=== PATIENT | male | born 1985 | race Two or more races ===

== ENCOUNTER 2017-04-15 11:35 | Inpatient (IN) | payer MEDICAID ==
[~2017-04-15] VITALS: Ht 167.6 cm; Wt 58.7 kg
[2017-04-15] MEDS ORDERED: ONDANSETRON ODT 4 MG TAB PO ONE ×2 (12:12→12:30)
[2017-04-15 13:40] LABS: Basophils # (auto) 0 uL; Basophils % (auto) 0.1 % (0.0-2.0); Eosinophils # (auto) 0 uL; Hematocrit 50.5 % (41.0-53.0); Hemoglobin 17.1 g/dL (13.5-17.5); Lymphocytes # (auto) 0.4 uL; Lymphocytes % (auto) 2.4 % (10.0-50.0); Mean Corpuscular Hemoglobin 31.4 pg (28.0-32.0); Mean Corpuscular Hgb Conc. 33.8 g/dL (32.0-36.0); Mean Corpuscular Volume 92.9 fL (80.0-100.0); Monocytes # (auto) 1.6 uL; Monocytes % (auto) 9.1 % (0.0-12.0); Neutrophils # (auto) 15.5 uL; Neutrophils % (auto) 88.4 % (37.0-80.0); Nucleated Red Blood Cells % 0.1 %; Platelet Count (auto) 228 10^3/uL (140-450); Red Blood Cells 5.44 10^6/uL (4.5-5.90); Red Cell Distribution Width 13.2 % (11.8-14.3); White Blood Cell 17.5 10^3/uL (4.4-10.8)
[2017-04-15 14:02] LABS: Albumin 5.6 g/dL (3.4-5.0); BUN/Creatinine Ratio 13.1; Bilirubin, Total 1.8 mg/dL (0.2-1.0); Calcium 9.8 mg/dL (8.5-10.1); Potassium 3.4 mmol/L (3.5-5.1); Total Protein 10.7 g/dL (6.4-8.2)
[2017-04-15] MEDS ORDERED: SODIUM CHLORIDE 0.9% 1,000 ML IVB ONE (17:28)
[2017-04-15] MEDS ORDERED: ONDANSETRON HCL 4 MG/2 ML VIAL IV ONE (17:30)
[2017-04-15] MEDS ORDERED: cefTRIAXone 1GM/10ml IVPUSH 10 ML IV ONE (17:30)
[2017-04-15] MEDS ORDERED: SODIUM CHLORIDE 0.9% 1,000 ML IV ONE ×2 (17:30)
[2017-04-15] MEDS ORDERED: PANTOPRAZOLE 40 MG/10 ML VIAL IV ONE (17:30)
[2017-04-15 18:24] LABS: Lactic Acid w/Reflex 2.9 mmol/L (0.4-2.0)
[2017-04-15 19:06] LABS: INR 1.1 (0.9-1.15); Partial Thromboplastin Time 27.3 sec (22.64-33.71)
[2017-04-15 19:52] LABS: Urine Bacteria None Seen /hpf (None Seen)
[2017-04-15 20:43] LABS: Urine Specific Gravity 1.015 (1.001-1.035)
[2017-04-15 20:46] LABS: Urine Hyaline Cast FEW /lpf (0 - 2); Urine Mucus FEW (None Seen); Urine WBC 3 /hpf (0 - 3)
[2017-04-15 20:47] LABS: Urine Blood Trace /uL (Negative)
[2017-04-15] MEDS ORDERED: metroNIDAZOLE 500MG/100ML 100 ML IV ONE (21:15)
[2017-04-15] MEDS ORDERED: ONDANSETRON HCL 4 MG/2 ML VIAL IV PRN (21:15)
[2017-04-15] MEDS: SODIUM CHLORIDE 0.9% 1,000 ML IV SCH (21:30)
[2017-04-15] MEDS ORDERED: POTASSIUM CHL 10% (20 MEQ/15ML) 15ml ORAL SOLN PO ONE (22:15)
[2017-04-15 23:30] VITALS: BP 139/72
[2017-04-16] MEDS ORDERED: INFLUENZA QUAD 2017-2018 0.5 ML SYRG IM ONE (03:30)
[2017-04-16] MEDS ORDERED: PNEUMOCOCCAL VACC POLYS 25 MCG/0.5 ML VIAL IM ONE (03:30)
[2017-04-16 05:35] VITALS: BP 114/62
[2017-04-16 06:02] LABS: Basophils # (auto) 0 uL; Eosinophils # (auto) 0 uL; Hematocrit 38.2 % (41.0-53.0); Hemoglobin 12.9 g/dL (13.5-17.5); Lymphocytes # (auto) 0.8 uL; Mean Corpuscular Hemoglobin 31.7 pg (28.0-32.0); Mean Corpuscular Hgb Conc. 33.9 g/dL (32.0-36.0); Mean Corpuscular Volume 93.5 fL (80.0-100.0); Monocytes # (auto) 1.6 uL; Monocytes % (auto) 11.7 % (0.0-12.0); Neutrophils # (auto) 11.1 uL; Neutrophils % (auto) 82.3 % (37.0-80.0); Nucleated Red Blood Cells % 0.1 %; Platelet Count (auto) 133 10^3/uL (140-450); Red Blood Cells 4.08 10^6/uL (4.5-5.90); White Blood Cell 13.5 10^3/uL (4.4-10.8)
[2017-04-16 06:24] LABS: Albumin 3.6 g/dL (3.4-5.0); Calcium 7.8 mg/dL (8.5-10.1); Potassium 3.1 mmol/L (3.5-5.1)
[2017-04-16 06:26] LABS: BUN/Creatinine Ratio 20.6
[2017-04-16 06:28] LABS: Bilirubin, Total 1.1 mg/dL (0.2-1.0)
[2017-04-16] MEDS: SODIUM CHLORIDE 0.9% 1,000 ML IV SCH ×3 (08:46→17:13)
[2017-04-16 09:00] VITALS: BP 119/72
[2017-04-16] MEDS ORDERED: cefTRIAXone 1GM/10ml IVPUSH 10 ML IV SCH (09:00)
[2017-04-16] MEDS: PANTOPRAZOLE 40 MG/10 ML VIAL IV SCH (09:56)
[2017-04-16 13:00] VITALS: BP 114/70
[2017-04-16 17:18] VITALS: BP 108/65
[2017-04-16] MEDS: SOD CHL 0.9%/ KCL 20MEQ 1,000 ML IV SCH (18:47)
[2017-04-16 22:00] VITALS: BP 119/80
[2017-04-17] MEDS: SOD CHL 0.9%/ KCL 20MEQ 1,000 ML IV SCH ×2 (04:34→14:15)
[2017-04-17 05:00] VITALS: BP 126/75
[2017-04-17 05:57] LABS: Calcium 8.1 mg/dL (8.5-10.1); Potassium 3.1 mmol/L (3.5-5.1)
[2017-04-17 09:00] VITALS: BP 129/65
[2017-04-17] MEDS: PANTOPRAZOLE 40 MG/10 ML VIAL IV SCH (09:31)
[2017-04-17 13:00] VITALS: BP 112/60
[2017-04-17 18:25] VITALS: BP 142/98
[2017-04-17 19:18] VITALS: BP 124/72
== END 2017-04-17 20:55 | disposition home or self-care (01) | DRG 720 ==
LOC: ER 11:35 → TELE 11:36 → TELE-CENTR 23:08
PROVIDERS: ADMIT Nurse Practitioner Family; ATTEND Nurse Practitioner Family
DX: A41.9 Sepsis, unspecified organism (principal); N17.9 Acute kidney failure, unspecified; K72.90 Hepatic failure, unspecified without coma; N12 Tubulo-interstitial nephritis, not specified as acute or chronic; E86.0 Dehydration; E87.1 Hypo-osmolality and hyponatremia; E87.6 Hypokalemia; K29.00 Acute gastritis without bleeding; Z82.49 Family history of ischemic heart disease and other diseases of the circulatory system; Z23 Encounter for immunization
CPT/HCPCS: 36415; 71010; 74176; 80048; 80053; 80320; 81001; 82150; 83605; 83690; 83735; 85025; 85610; 85730; 87040; 87086; 94761; 96361; 96374; 96375; C9113; J2405; J3490; Q0162

== ENCOUNTER 2019-02-09 15:33 | Emergency (ER) | payer MEDICAID ==
[~2019-02-09] VITALS: Ht 167.6 cm; Wt 61.2 kg
[2019-02-09] MEDS ORDERED: SODIUM CHLORIDE 0.9% 1,000 ML IV ONE ×2 (16:11)
[2019-02-09] MEDS ORDERED: chlordiazePOXIDE HCL 5 MG CAP PO ONE (16:15)
[2019-02-09 16:30] LABS: Basophils # (auto) 0.1 uL; Basophils % (auto) 0.6 % (0.0-2.0); Eosinophils # (auto) 0 uL; Hematocrit 45.2 % (41.0-53.0); Hemoglobin 15.1 g/dL (13.5-17.5); Lymphocytes # (auto) 0.9 uL; Lymphocytes % (auto) 9.3 % (10.0-50.0); Mean Corpuscular Hemoglobin 30.7 pg (28.0-32.0); Mean Corpuscular Hgb Conc. 33.5 g/dL (32.0-36.0); Mean Corpuscular Volume 91.5 fL (80.0-100.0); Monocytes # (auto) 0.4 uL; Monocytes % (auto) 4.5 % (0.0-12.0); Neutrophils # (auto) 8.1 uL; Neutrophils % (auto) 85.6 % (37.0-80.0); Platelet Count (auto) 169 10^3/uL (140-450); Red Blood Cells 4.94 10^6/uL (4.5-5.90); Red Cell Distribution Width 12.8 % (11.8-14.3); White Blood Cell 9.5 10^3/uL (4.4-10.8)
[2019-02-09] MEDS ORDERED: THIAMINE 100mg/ml INJ (200mg/2ml VIAL) IV ONE (16:30)
[2019-02-09 16:54] LABS: Alanine Aminotransferase 55 U/L (16-61); Albumin 4.3 g/dL (3.4-5.0); Anion Gap 12 (5-15); Aspartate Aminotransferase 121 U/L (15-37); BUN/Creatinine Ratio 7.7; Bilirubin, Total 1.4 mg/dL (0.2-1.0); Blood Urea Nitrogen 5 mg/dL (7-18); Calcium 8.9 mg/dL (8.5-10.1); Carbon Dioxide 26 mmol/L (21-32); Chloride 99 mmol/L (98-107); GFR African American 184 mL/min; GFR Non-African American 152 mL/min; Glucose 91 mg/dL (74-106); Sodium 137 mmol/L (136-145); Total Protein 8.8 g/dL (6.4-8.2)
[2019-02-09 16:57] LABS: Alkaline Phosphatase 102 U/L (45-117)
[2019-02-09 17:55] VITALS: BP 108/80
== END 2019-02-09 18:14 | disposition home or self-care (01) ==
LOC: ER 15:33
DX: F10.239 Alcohol dependence with withdrawal, unspecified (principal); E86.0 Dehydration; Y90.9 Presence of alcohol in blood, level not specified
CPT/HCPCS: 36415; 80053; 84484; 85025; 93005; 96361; 96374; 99284; J3411; J7030

== ENCOUNTER 2019-06-15 20:23 | Inpatient (IN) | payer MEDICAID ==
[~2019-06-15] VITALS: Ht 165.1 cm; Wt 63.1 kg
[2019-06-15 21:13] LABS: Urine Bacteria NONE SEEN /hpf (None Seen); Urine Blood Negative /uL (Negative); Urine Mucus FEW (None Seen); Urine WBC 12 /hpf (0 - 3)
[2019-06-15] MEDS ORDERED: FOLIC ACID 1 MG, MULTIPLE VITAMIN 10 ML, MAGNESIUM SULF SDV 50% 8 MEQ, THIAMINE INJ 100... INJ STA ×5 (21:23)
[2019-06-15] MEDS ORDERED: SODIUM CHLORIDE 0.9% 1,000 ML IVB ONE (21:23)
[2019-06-15 21:29] LABS: Basophils # (auto) 0 uL; Basophils % (auto) 0.6 % (0.0-2.0); Eosinophils # (auto) 0 uL; Eosinophils % (auto) 0.1 % (0.0-7.0); Hematocrit 42.4 % (41.0-53.0); Hemoglobin 14.6 g/dL (13.5-17.5); Lymphocytes # (auto) 0.6 uL; Lymphocytes % (auto) 11.6 % (10.0-50.0); Mean Corpuscular Hemoglobin 31.2 pg (28.0-32.0); Mean Corpuscular Hgb Conc. 34.3 g/dL (32.0-36.0); Mean Corpuscular Volume 90.9 fL (80.0-100.0); Monocytes # (auto) 0.5 uL; Monocytes % (auto) 8.9 % (0.0-12.0); Neutrophils # (auto) 4.3 uL; Neutrophils % (auto) 78.8 % (37.0-80.0); Nucleated Red Blood Cells % 0.1 %; Platelet Count (auto) 90 10^3/uL (140-450); Red Blood Cells 4.66 10^6/uL (4.5-5.90); Red Cell Distribution Width 14.5 % (11.8-14.3); White Blood Cell 5.5 10^3/uL (4.4-10.8)
[2019-06-15] MEDS ORDERED: THIAMINE 100mg/ml INJ (200mg/2ml VIAL) IV ONE (21:30)
[2019-06-15 21:34] LABS: Amphetamine Screen, Urine NEGATIVE (NEGATIVE); Barbiturate Scree,Urine NEGATIVE (NEGATIVE); Benzodiazephine Screen, Urine POSITIVE (NEGATIVE); Cannabinoid Screen, Urine NEGATIVE (NEGATIVE); Cocaine Screen, Urine NEGATIVE (NEGATIVE); Opiate Scree,Urine NEGATIVE (NEGATIVE); Phencyclidine Screen, Urine NEGATIVE (NEGATIVE)
[2019-06-15 21:43] LABS: Albumin 4.2 g/dL (3.4-5.0); BUN/Creatinine Ratio 6.9; Calcium 9.3 mg/dL (8.5-10.1); Magnesium 1.1 mg/dL (1.6-2.6); Potassium 3.5 mmol/L (3.5-5.1)
[2019-06-15 21:46] LABS: Bilirubin, Total 1.5 mg/dL (0.2-1.0); Total Protein 9.6 g/dL (6.4-8.2)
[2019-06-15] MEDS ORDERED: PROMETHAZINE HCL 25 MG/ML 1ML IV ONE ×2 (22:00)
[2019-06-15] MEDS: SODIUM CHLORIDE 0.9% 1,000 ML IV SCH (23:00)
[2019-06-15] MEDS ORDERED: NITROGLYCERIN 0.4 MG SL TAB SL PRN (23:00)
[2019-06-15] MEDS ORDERED: TEMAZEPAM 15 MG CAP PO PRN (23:00)
[2019-06-15] MEDS: MAGNESIUM SULFATE 1GM/100ML 100 ML IV SCH (23:00)
[2019-06-15] MEDS ORDERED: MORPHINE SULF INJ 2 MG/ML SYRINGE 1ML IV PRN (23:00)
[2019-06-15] MEDS ORDERED: ONDANSETRON HCL 4 MG/2 ML VIAL IV PRN (23:00)
[2019-06-15] MEDS ORDERED: PANTOPRAZOLE 40 MG/10 ML VIAL INJ IV ONE (23:00)
[2019-06-15] MEDS: chlordiazePOXIDE HCL 25 MG CAP PO PRN (23:27)
--- NOTE | 2019-06-16 00:12 | NUR ---
Telemetry admit from ER NICOLAS LUEVANO admitted to Telemetry unit after SBAR received. Patient oriented to ENMA PIERRE RN primary RN, unit, room, bed, and unit policies regarding patient care and visiting hours. Patient now on continuous telemetry monitoring, tele box # [id number] and telemetry reading on arrival to unit is sinus tachycardia. Patient placed on bed, weighed by bedscale and encouraged to call if they need something. All questions and concerns addressed, patient verbalized understanding.
[2019-06-16 00:32] VITALS: BP 125/70
[2019-06-16] MEDS: MAGNESIUM SULFATE 1GM/100ML 100 ML IV SCH (01:06)
[2019-06-16] MEDS ORDERED: PNEUMOCOCCAL VACC POLYS 25 MCG/0.5 ML VIAL IM ONE (01:45)
[2019-06-16] MEDS ORDERED: INFLUENZA QUAD 2019-2020 0.5ml SYRG IM ONE (01:45)
[2019-06-16 06:00] VITALS: BP 123/75
[2019-06-16 06:01] LABS: Basophils # (auto) 0 uL; Eosinophils # (auto) 0 uL; Eosinophils % (auto) 0.4 % (0.0-7.0); Hematocrit 35.4 % (41.0-53.0); Lymphocytes # (auto) 0.8 uL; Monocytes # (auto) 0.4 uL; White Blood Cell 3.9 10^3/uL (4.4-10.8)
[2019-06-16 06:04] LABS: Basophils % (auto) 0.8 % (0.0-2.0); Hemoglobin 12.1 g/dL (13.5-17.5); Lymphocytes % (auto) 20.2 % (10.0-50.0); Mean Corpuscular Hemoglobin 31.2 pg (28.0-32.0); Mean Corpuscular Hgb Conc. 34.2 g/dL (32.0-36.0); Mean Corpuscular Volume 91.2 fL (80.0-100.0); Monocytes % (auto) 9.9 % (0.0-12.0); Neutrophils # (auto) 2.6 uL; Neutrophils % (auto) 68.7 % (37.0-80.0); Nucleated Red Blood Cells % 0.1 %; Platelet Count (auto) 65 10^3/uL (140-450); Red Blood Cells 3.88 10^6/uL (4.5-5.90)
[2019-06-16 06:13] LABS: Potassium 3.3 mmol/L (3.5-5.1)
[2019-06-16 06:22] LABS: Albumin 3.1 g/dL (3.4-5.0); BUN/Creatinine Ratio 10.6; Bilirubin, Total 1.6 mg/dL (0.2-1.0); Calcium 7.7 mg/dL (8.5-10.1); Total Protein 7.2 g/dL (6.4-8.2)
--- NOTE | 2019-06-16 07:29 | NUR ---
REPORT GIVEN TO DAYSHIFT RN. PATIENT DENIES SOB/DISTRESS OR PAIN
--- NOTE | 2019-06-16 08:34 | NUR ---
OPENING SHIFT NOTE: PATIENT AWAKE A/OX4 RESPIRATIONS EVEN AND UNLABORED. PATIENT REPORTS GETTING A "GOOD NIGHT'S SLEEP." UPDATED ON PLAN OF CARE, PATIENT'S GIRLFRIEND ALSO ADMITTED TO THE HOSPITAL AT BEDSIDE. PATIENT VERBALIZED UNDERSTANDING, CALL LIGHT WITHIN REACH, BED IN LOWEST LOCKED POSITION, TOLERATING BREAKFAST WELL. WILL CONTINUE TO MONITOR.
[2019-06-16 09:00] VITALS: BP 132/97
[2019-06-16] MEDS ORDERED: cefTRIAXone 1GM/50ML D5W 50 ML IV SCH (09:00)
[2019-06-16] MEDS: chlordiazePOXIDE HCL 25 MG CAP PO PRN (09:46)
[2019-06-16] MEDS: PROPRANOLOL HCL 20 MG TAB PO SCH ×2 (09:47→22:10)
[2019-06-16] MEDS ORDERED: PANTOPRAZOLE 40 MG/10 ML VIAL INJ IV SCH (10:00)
[2019-06-16] MEDS ORDERED: LORazepam 2MG/ML-1ML VIAL IV PRN (11:15)
[2019-06-16] MEDS ORDERED: POTASSIUM CHL 20 Meq TABLET PO ONE (11:15)
--- NOTE | 2019-06-16 11:30 | NUR ---
MD SACHIN HOPPER
[2019-06-16] MEDS: SODIUM CHLORIDE 0.9% 1,000 ML IV SCH ×2 (11:40→22:32)
[2019-06-16 13:00] VITALS: BP 114/69
[2019-06-16] MEDS: FOLIC ACID 1 MG, MULTIPLE VITAMIN 10 ML, MAGNESIUM SULF SDV 50% 8 MEQ, THIAMINE INJ 100... INJ SCH ×5 (13:22)
--- NOTE | 2019-06-16 15:44 | NUR ---
TELE BOX RETURNED TO CARDIO UNIT.
[2019-06-16 17:12] VITALS: BP 125/73
--- NOTE | 2019-06-16 18:00 | NUR ---
PATIENT UP AMBULATING IN UNIT.
--- NOTE | 2019-06-16 19:20 | NUR ---
CARE ENDORSED TO YORDAN BUTLER.
[2019-06-16 22:00] VITALS: BP 119/72
[2019-06-17 05:00] VITALS: BP 115/73
[2019-06-17 05:32] LABS: Albumin 3.6 g/dL (3.4-5.0); Calcium 8.7 mg/dL (8.5-10.1); Magnesium 2.2 mg/dL (1.6-2.6); Potassium 3.7 mmol/L (3.5-5.1)
[2019-06-17 05:37] LABS: BUN/Creatinine Ratio 6.3; Bilirubin, Total 1.6 mg/dL (0.2-1.0); Total Protein 8.4 g/dL (6.4-8.2)
--- NOTE | 2019-06-17 08:35 | NUR ---
OPENING SHIFT NOTE: PATIENT RESTING IN BED. UPDATED ON PLAN OF CARE. PATIENT REPORTS FEELING, "READY TO GO HOME." CALL LIGHT WITHIN REACH, WILL CONTINUE TO MONITOR.
[2019-06-17 09:00] VITALS: BP 117/71
[2019-06-17] MEDS: PROPRANOLOL HCL 20 MG TAB PO SCH (10:21)
[2019-06-17] MEDS: SODIUM CHLORIDE 0.9% 1,000 ML IV SCH (10:21)
--- NOTE | 2019-06-17 12:34 | NUR ---
MD CHAVEZ ROUNDING: PATIENT TO FIND OUTPATIENT REHAB CENTER, PER PATIENT REQUEST TO GO TO REHAB WITH GIRLFRIEND, PATIENT VERBALIZED UNDERSTANDING ON DC EDUCATION AND PLAN OF CARE.
[2019-06-17 13:00] VITALS: BP 111/78
[2019-06-17] MEDS: FOLIC ACID 1 MG, MULTIPLE VITAMIN 10 ML, MAGNESIUM SULF SDV 50% 8 MEQ, THIAMINE INJ 100... INJ SCH ×5 (13:10)
--- NOTE | 2019-06-17 15:36 | NUR ---
DISCHARGED: PATIENT DISCHARGED HOME, IV REMOVED CATHETER INTACT. PATIENT GIVEN ALL EDUCATION MATERIALS AND VERBALIZED UNDERSTANDING. MADE AWARE PRESCRIPTION FOR MEDICATIONS SENT TO PHARMACY ON FILE. PATIENT VERBALIZED UNDERSTANDING. PATIENT LEFT WITH ALL BELONGING. RESPIRATIONS EVEN AND UNLABORED. AMBULATED OUT TO [facility] WITHOUT INCIDENCE.
[2019-06-17] MEDS ORDERED: MULTTAB61 PO (16:27)
[2019-06-17] MEDS ORDERED: FOLI1TAB6 PO (16:27)
[2019-06-17] MEDS ORDERED: ACAM1TAB4 OR (16:27)
[2019-06-17] MEDS ORDERED: LORA0.5T12 PO (16:27)
[2019-06-17] MEDS ORDERED: PROP20TA73 PO (16:27)
[2019-06-17] MEDS ORDERED: PANT40TA2 PO (16:27)
[2019-06-17] MEDS ORDERED: THIA50CA PO (16:27)
== END 2019-06-17 15:35 | disposition home or self-care (01) | DRG 280 ==
LOC: ER 20:26 → TELE 20:27 → TELE-CENTR 23:25 → CENTRAL 06-16 15:38
PROVIDERS: ADMIT Nurse Practitioner; ATTEND Nurse Practitioner
DX: K70.10 Alcoholic hepatitis without ascites (principal); K70.30 Alcoholic cirrhosis of liver without ascites; F10.231 Alcohol dependence with withdrawal delirium; D69.59 Other secondary thrombocytopenia; E83.42 Hypomagnesemia; N39.0 Urinary tract infection, site not specified; F41.9 Anxiety disorder, unspecified; Y90.0 Blood alcohol level of less than 20 mg/100 ml; Z82.49 Family history of ischemic heart disease and other diseases of the circulatory system; Z91.011 Allergy to milk products
CPT/HCPCS: 36415; 71045; 80053; 80307; 80320; 81001; 83735; 85025; 96365; 96367; 96375; C9113; G0378; J0696

== ENCOUNTER 2020-01-30 18:04 | Inpatient (IN) | payer MEDICAID ==
[~2020-01-30] VITALS: Ht 165.1 cm; Wt 67.0 kg
[~2020-01-30 18:04] MED LIST: ACAM1TAB4 OR; FOLI1TAB6 PO; LORA0.5T20 PO; MULT-1018 PO; PANT40TA2 PO; PROP20TA73 PO; THIA50CA PO
[2020-01-30 19:12] LABS: Basophils # (auto) 0 10 ^3/uL (0-0.2); Basophils % (auto) 0.4 % (0.0-2.0); Eosinophils # (auto) 0 10 ^3/uL (0-0.8); Eosinophils % (auto) 0.1 % (0.0-7.0); Hematocrit 11.2 % (41.0-53.0); Lymphocytes # (auto) 0.7 10 ^3/uL (0.4-5.4); Lymphocytes % (auto) 10.8 % (10.0-50.0); Mean Corpuscular Hemoglobin 25.6 pg (28.0-32.0); Mean Corpuscular Hgb Conc. 31.3 g/dL (32.0-36.0); Mean Corpuscular Volume 81.9 fL (80.0-100.0); Monocytes # (auto) 0.5 10 ^3/uL (0-1.3); Monocytes % (auto) 7.9 % (0.0-12.0); Neutrophils # (auto) 5.3 10 ^3/uL (1.6-8.6); Neutrophils % (auto) 80.8 % (37.0-80.0); Nucleated Red Blood Cells % 0.9 %; Platelet Count (auto) 103 10^3/uL (140-450); Red Blood Cells 1.37 10^6/uL (4.5-5.90); White Blood Cell 6.5 10^3/uL (4.4-10.8)
[2020-01-30 19:16] LABS: Hemoglobin 3.5 g/dL (13.5-17.5)
[2020-01-30 19:27] LABS: BUN/Creatinine Ratio 7.8; Calcium 7.8 mg/dL (8.5-10.1); Potassium 3.4 mmol/L (3.5-5.1)
[2020-01-30] MEDS ORDERED: PANTOPRAZOLE 40 MG/10 ML VIAL INJ IV ONE (21:30)
[2020-01-30] MEDS ORDERED: PANTOPRAZOLE 40mg/50ML NS AE 50 ML IV ONE (21:30)
[2020-01-30] MEDS ORDERED: levoFLOXacin 750MG 150 ML IV ONE (23:00)
[2020-01-30 23:27] VITALS: BP 101/44
[2020-01-30 23:42] VITALS: BP 102/53
[2020-01-31] VITALS (27 sets, daily range): BP systolic 109–152; BP diastolic 54–97
[2020-01-31] MEDS ORDERED: MORPHINE SULF INJ 2 MG/ML SYRINGE 1ML IV PRN (00:15)
[2020-01-31] MEDS ORDERED: ONDANSETRON HCL 4 MG/2 ML VIAL IV PRN (00:15)
[2020-01-31] MEDS ORDERED: DOCUSATE SOD 100 MG CAP PO PRN (00:15)
--- NOTE | 2020-01-31 02:03 | NUR ---
BLOOD STARTED THIS IS THE FIRST UNIT OF BLOOD I GAVE AND THIS IS THE SECOND UNIT BEING ADMINISTER. PT RESTING IN BED WITH BREATHS EVEN AND UNLABORED, NO S/S OF DISTRESSED SOB NOTED
[2020-01-31] MEDS: ACETAMINOPHEN 325 MG TAB PO PRN ×2 (02:12→19:18)
[2020-01-31] MEDS ORDERED: MULT-18 OR (02:17)
--- NOTE | 2020-01-31 03:12 | NUR ---
temperature pt temperature is 99.2 medication not due .Applied cooling measure
[2020-01-31] MEDS: SODIUM CHLORIDE 0.9% 1,000 ML IV SCH ×2 (03:37→17:01)
--- NOTE | 2020-01-31 04:27 | NUR ---
SECOND UNIT OF BLOOD COMPLETED. PT TOLERATE WELL, NO S/S OF DISTRESS SOB NOTED
--- NOTE | 2020-01-31 04:36 | NUR ---
PT TRANSFERRED TO [facility] PT TRANSFERRED TO [facility] FROM [facility]. PATIENT TRANSFERRED WITH ALL PERSONAL BELONGINGS. NO SIGN/SYMPTOMS OF DISTRESS NOTED UPON DEPARTURE.PATIENT CARE ENDORSED TO YUNIOR BUTLER
--- NOTE | 2020-01-31 04:45 | NUR ---
Received patient from COVID unit after report received. Assumed care of patient, awake and alert. No complains at this time. Instructed on POC and to call for assist PRN, will continue to monitor for changes Q1hr and PRN.
--- NOTE | 2020-01-31 05:36 | NUR ---
Fresh frozen plasma transfusion started after obtaining baseline vital signs and verification with another RN as ordered by MD. Patient instructed to call for any blood products transfusion reaction including but not limited to itching, shortness of breath, acute pain or any other new signs or symptoms. Patient verbalized understanding. Patient will be closely monitored.
--- NOTE | 2020-01-31 06:00 | NUR ---
FFP still transfusing, no blood products transfusion reaction noted. Will continue to closely monitor patient.
--- NOTE | 2020-01-31 07:00 | NUR ---
FFP still transfusing, no blood products transfusion reaction noted. Will continue to closely monitor patient.
--- NOTE | 2020-01-31 07:19 | NUR ---
FFP transfusion noted. No blood product transfusion reaction noted. Report given to oncoming RN.
[2020-01-31 08:52] LABS: Basophils # (auto) 0 10 ^3/uL (0-0.2); Eosinophils # (auto) 0 10 ^3/uL (0-0.8); Hematocrit 15.8 % (41.0-53.0); Lymphocytes # (auto) 0.8 10 ^3/uL (0.4-5.4); Monocytes # (auto) 0.4 10 ^3/uL (0-1.3); Neutrophils # (auto) 3.2 10 ^3/uL (1.6-8.6); Platelet Count (auto) 90 10^3/uL (140-450)
[2020-01-31 08:56] LABS: Basophils % (auto) 0.7 % (0.0-2.0); Eosinophils % (auto) 0.8 % (0.0-7.0); Lymphocytes % (auto) 17.6 % (10.0-50.0); Mean Corpuscular Hemoglobin 27.4 pg (28.0-32.0); Mean Corpuscular Hgb Conc. 33.1 g/dL (32.0-36.0); Mean Corpuscular Volume 82.9 fL (80.0-100.0); Monocytes % (auto) 8.9 % (0.0-12.0); Nucleated Red Blood Cells % 0.8 %; Red Cell Distribution Width 18.3 % (11.8-14.3); White Blood Cell 4.4 10^3/uL (4.4-10.8)
[2020-01-31 09:21] LABS: Calcium 7.4 mg/dL (8.5-10.1); Potassium 3.3 mmol/L (3.5-5.1)
[2020-01-31 09:30] LABS: Hemoglobin 5.2 g/dL (13.5-17.5)
[2020-01-31 10:22] LABS: INR 1.32 (0.9-1.15)
[2020-01-31] MEDS: PANTOPRAZOLE 40 MG/10 ML VIAL INJ IV SCH ×2 (12:23→22:37)
[2020-01-31] MEDS: SUCRALFATE 1 GM/10 ML ORAL SUSP PO SCH ×3 (12:23→22:37)
[2020-01-31] MEDS: HYDROcodone-ACET 5/325MG TAB PO PRN (15:11)
--- NOTE | 2020-01-31 19:30 | NUR ---
Opening Shift Note Assumed care of patient, awake and alert. No S/S of distress/SOB or pain. Patient received with blood still infusing. Patient aware to call for any possible blood products transfusion reaction. Instructed on POC and to call for assist PRN, will continue to monitor for changes Q1hr and PRN.
--- NOTE | 2020-01-31 21:00 | NUR ---
Blood transfusion completed, lab ordered per protocol. No blood transfusion reaction noted. Care continued. Addendum: 02/01/20 at 0753 by Gaby Quinteros RN incorrect time
[2020-01-31] MEDS: levoFLOXacin 500MG 100 ML IV SCH (22:38)
[2020-01-31 23:51] LABS: Basophils # (auto) 0 10 ^3/uL (0-0.2); Basophils % (auto) 0.7 % (0.0-2.0); Eosinophils # (auto) 0.1 10 ^3/uL (0-0.8); Eosinophils % (auto) 1.1 % (0.0-7.0); Hemoglobin 9.1 g/dL (13.5-17.5); Lymphocytes # (auto) 1.1 10 ^3/uL (0.4-5.4); Lymphocytes % (auto) 19.4 % (10.0-50.0); Mean Corpuscular Hemoglobin 28.7 pg (28.0-32.0); Mean Corpuscular Hgb Conc. 33.7 g/dL (32.0-36.0); Monocytes # (auto) 0.6 10 ^3/uL (0-1.3); Monocytes % (auto) 10.5 % (0.0-12.0); Neutrophils % (auto) 68.3 % (37.0-80.0); Nucleated Red Blood Cells % 0.5 %; Platelet Count (auto) 97 10^3/uL (140-450); Red Blood Cells 3.18 10^6/uL (4.5-5.90); Red Cell Distribution Width 17.7 % (11.8-14.3); White Blood Cell 5.8 10^3/uL (4.4-10.8)
[2020-02-01] VITALS (7 sets, daily range): BP systolic 126–140; BP diastolic 67–87
[2020-02-01 05:50] LABS: Basophils # (auto) 0.1 10 ^3/uL (0-0.2); Basophils % (auto) 0.9 % (0.0-2.0); Eosinophils # (auto) 0.1 10 ^3/uL (0-0.8); Eosinophils % (auto) 1.6 % (0.0-7.0); Hemoglobin 9.5 g/dL (13.5-17.5); Lymphocytes # (auto) 1.1 10 ^3/uL (0.4-5.4); Lymphocytes % (auto) 17.8 % (10.0-50.0); Mean Corpuscular Hemoglobin 28.7 pg (28.0-32.0); Mean Corpuscular Hgb Conc. 33.8 g/dL (32.0-36.0); Mean Corpuscular Volume 84.8 fL (80.0-100.0); Monocytes # (auto) 0.5 10 ^3/uL (0-1.3); Monocytes % (auto) 8.7 % (0.0-12.0); Neutrophils # (auto) 4.3 10 ^3/uL (1.6-8.6); Nucleated Red Blood Cells % 0.3 %; Platelet Count (auto) 109 10^3/uL (140-450); Red Cell Distribution Width 17.3 % (11.8-14.3); White Blood Cell 6.1 10^3/uL (4.4-10.8)
[2020-02-01] MEDS ORDERED: MULT-20 PO (05:52)
[2020-02-01 06:07] LABS: INR 1.48 (0.9-1.15); Partial Thromboplastin Time 29.1 sec (23.0-31.2)
[2020-02-01 06:11] LABS: BUN/Creatinine Ratio 7.4; Calcium 7.5 mg/dL (8.5-10.1); Potassium 3.2 mmol/L (3.5-5.1)
[2020-02-01] MEDS: SUCRALFATE 1 GM/10 ML ORAL SUSP PO SCH ×4 (06:32→21:39)
--- NOTE | 2020-02-01 07:30 | NUR ---
Patient has no complains at this time, verbalizing that he feels better. Report given to oncoming RN.
[2020-02-01] MEDS: PANTOPRAZOLE 40 MG/10 ML VIAL INJ IV SCH ×2 (09:11→21:39)
--- NOTE | 2020-02-01 09:35 | NUR ---
pt transported to pre op via bed, pt is awake and alert, pre-op checklist completed, consents signed, no signs of distress noted.
[2020-02-01] MEDS ORDERED: fentaNYL CITRATE 100 MCG/2 ML VL ONE (11:13)
[2020-02-01] MEDS ORDERED: MIDAZOLAM HCL 1MG/1ML-2 ML VIAL ONE (11:13)
[2020-02-01] MEDS ORDERED: DexAMETHasone SOD PHOS 10MG/1ML VIAL INJ ONE (11:24)
[2020-02-01] MEDS ORDERED: PROPOFOL 10 MG/ML 20 ML IV ONE (11:26)
--- NOTE | 2020-02-01 12:18 | NUR ---
received report from CARRIE Samuels in PACU.
--- NOTE | 2020-02-01 13:06 | NUR ---
PT SEEN BY DR. PEDROZA, RECEIVED ORDER TO DC IV FLUID.
[2020-02-01] MEDS: HYDROcodone-ACET 5/325MG TAB PO PRN (16:59)
--- NOTE | 2020-02-01 19:05 | NUR ---
Opening Shift Note Assumed care of patient from day shift RN, patient awake and alert and oriented x4. No S/S of distress/SOB or pain. Instructed on POC and to call for assist PRN, safety measures in place bed in lowest position side rails x2 and call light with in reach. will continue to monitor for changes Q1hr and PRN.
[2020-02-01] MEDS: ACETAMINOPHEN 325 MG TAB PO PRN (20:17)
--- NOTE | 2020-02-01 20:17 | NUR ---
patient complained of 3/10 pain to abdomen pain medication tylenol administered at this time.
--- NOTE | 2020-02-01 21:17 | NUR ---
reassessed pain patient states 0/10 pain at this time.
[2020-02-01] MEDS: levoFLOXacin 500MG 100 ML IV SCH (21:40)
[2020-02-02] MEDS: HYDROcodone-ACET 5/325MG TAB PO PRN (02:48)
--- NOTE | 2020-02-02 02:48 | NUR ---
patient states 6/10 pain to abdomen norco administered at this time.
[2020-02-02 05:00] VITALS: BP 126/68
[2020-02-02] MEDS: SUCRALFATE 1 GM/10 ML ORAL SUSP PO SCH ×2 (06:28→11:37)
[2020-02-02 07:22] LABS: Basophils # (auto) 0 10 ^3/uL (0-0.2); Basophils % (auto) 0.1 % (0.0-2.0); Eosinophils # (auto) 0 10 ^3/uL (0-0.8); Hematocrit 28.7 % (41.0-53.0); Hemoglobin 9.4 g/dL (13.5-17.5); Lymphocytes # (auto) 0.7 10 ^3/uL (0.4-5.4); Lymphocytes % (auto) 8.3 % (10.0-50.0); Mean Corpuscular Hemoglobin 28.2 pg (28.0-32.0); Mean Corpuscular Hgb Conc. 32.6 g/dL (32.0-36.0); Mean Corpuscular Volume 86.5 fL (80.0-100.0); Monocytes # (auto) 0.7 10 ^3/uL (0-1.3); Monocytes % (auto) 8.7 % (0.0-12.0); Neutrophils # (auto) 6.5 10 ^3/uL (1.6-8.6); Neutrophils % (auto) 82.9 % (37.0-80.0); Nucleated Red Blood Cells % 0.1 %; Platelet Count (auto) 150 10^3/uL (140-450); Red Blood Cells 3.32 10^6/uL (4.5-5.90); Red Cell Distribution Width 18.1 % (11.8-14.3); White Blood Cell 7.9 10^3/uL (4.4-10.8)
[2020-02-02 07:35] LABS: Calcium 7.9 mg/dL (8.5-10.1); Potassium 3.2 mmol/L (3.5-5.1)
[2020-02-02 08:00] VITALS: BP 126/68
--- NOTE | 2020-02-02 08:45 | NUR ---
Opening Shift Note Assumed care of patient, awake and alert upon entering the room. No S/S of distress/SOB or pain. Patient reports his pain has gotten "better" over his stay and would like to try Tylenol for pain instead of Munday. Abdomen is tight but non-tender upon palpation and reports no bowel movement for 3 days. Patient was encouraged to walk and increase his fluid intake. Instructed on POC and to call for assist PRN. Patient verbalized understanding. Bed is in lowest position and the call light is within reach of the patient. Will continue to monitor for changes Q1hr and PRN.
[2020-02-02 08:58] VITALS: BP 124/86
[2020-02-02] MEDS: PANTOPRAZOLE 40 MG/10 ML VIAL INJ IV SCH (09:52)
--- NOTE | 2020-02-02 10:40 | NUR ---
Dr. Hewitt at bedside Dr. Hewitt at bedside discussing the POC. All questions and concerns were answered at this time. Hep panel ordered.
[2020-02-02 11:15] LABS: Albumin 2.9 g/dL (3.4-5.0); Bilirubin, Direct 1.1 mg/dL (0-0.2)
[2020-02-02 11:19] LABS: Bilirubin, Total 1.8 mg/dL (0.2-1.0); Total Protein 6.3 g/dL (6.4-8.2)
[2020-02-02] MEDS ORDERED: POTASSIUM EFFERVESENT TAB 25 MEQ PO ONE (12:15)
--- NOTE | 2020-02-02 12:22 | NUR ---
Dr. Guardado t bedside Dr. Guardado at bedside discussing the POC with the patient. Doctor cleared patient for discharge pending Dr. Hewitt's sign off. Marcelina was paged at this time.
[2020-02-02 12:38] VITALS: BP 124/86
[2020-02-02 13:00] VITALS: BP 126/80
--- NOTE | 2020-02-02 13:16 | NUR ---
assessment re: ss consult ETOH abuse Patient is a 34 year old male who is alert and oriented. Patients cognitive abilities are intact. Prior to admission patient lived home with family and functioned independently. Patient informed me he is able to care for his own ADLs. Per patient he will return home to his prior living arrangements post discharge and family will transport him home. I informed patient of his ss consult for ETOH abuse. Patient informed me he was drinking a fifth of Vodka 4 times a week, but has quit. I have offered patient resources for inpatient and outpatient rehab facilities as well as AA meetings. Patient has refused resources. I informed patient if he changes his mind he can have his nurse call me and I will provide resources. I informed patient he has a right to speak to a social work nurse regarding all care. I informed patient he has a right to participate in any and all discharge planning. Patient does not have a POA and advanced directive. I have offered patient information on POA and advanced directives. I informed the patient the advantages and benefits of having an Advanced Directive. Patient verbalized understanding and agreed to discharge plan. Addendum: 02/02/20 at 1323 by Juanita JONES Amended: Links added.
--- NOTE | 2020-02-02 13:34 | NUR ---
Nutrition Assessment Notes Please refer to link for full assessment notes. Est Energy needs: 9097-6123 kcals (23-25 kcal/kgBW) Est Protein needs: 54-67 gms/day (0.8-1.0 gm/kgBW) Will continue to monitor and reassess prn. Addendum: 02/02/20 at [address] Amended: Links added.
[2020-02-02] MEDS ORDERED: ALUM & MAG HYDROX-SIMETH LIQ(MAALOX) 30 ML PO ONE (14:15)
--- NOTE | 2020-02-02 14:27 | NUR ---
Heartburn complaint Patient complained of severe heartburn after eating lunch. Appeared to be lying in position and shaking upon inspection. Maalox order was received and medication was given. Will reassess in 30 min.
--- NOTE | 2020-02-02 15:52 | NUR ---
Discharged Discharge instructions given as ordered. Encourage to follow up with PMD as instructed as well as Dr. Hewitt in 1-2 weeks. All questions and concerns addressed. Patient verbalized understanding. Medication prescriptions given to the patient and education provided. IV removed with catheter intact, pressure dressing applied. Telemetry unit returned to ICU. Patient walked off the unit with all personal belongings. No distress noted at time of departure.
[2020-02-04 12:50] LABS: Hepatitis B Surface Antigen Negative (Negative)
[2020-02-04 12:53] LABS: Hepatitis B Surface Antibody Negative
[2020-02-04 12:55] LABS: Hepatitis A Total Antibody Positive
[2020-02-04 12:58] LABS: Hepatitis C Antibody Negative (Negative)
[2020-02-04 12:59] LABS: Hepatitis B Core Total AB Negative
== END 2020-02-02 15:45 | disposition home or self-care (01) | DRG 241 ==
LOC: ER 18:04 → TELE 18:05 → TELE-EAST 01-31 01:23 → TELE-WESTW 01-31 01:35
PROVIDERS: ADMIT Hospitalist; ATTEND Internal Medicine Pulmonary Disease
PROC: 30233K1 Transfusion of Nonautologous Frozen Plasma into Peripheral Vein, Percutaneous Approach (ICD-10-PCS; 2020-01-31)
PROC: 30233N1 Transfusion of Nonautologous Red Blood Cells into Peripheral Vein, Percutaneous Approach (ICD-10-PCS; 2020-01-31)
PROC: 06L38CZ Occlusion of Esophageal Vein with Extraluminal Device, Via Natural or Artificial Opening Endoscopic (ICD-10-PCS; 2020-02-01)
PROC: 0DB68ZX Excision of Stomach, Via Natural or Artificial Opening Endoscopic, Diagnostic (ICD-10-PCS; principal; 2020-02-01 11:15)
DX: K29.21 Alcoholic gastritis with bleeding (principal); I85.01 Esophageal varices with bleeding; E44.0 Moderate protein-calorie malnutrition; E83.51 Hypocalcemia; E87.1 Hypo-osmolality and hyponatremia; E87.6 Hypokalemia; F10.10 Alcohol abuse, uncomplicated; I10 Essential (primary) hypertension; R65.10 Systemic inflammatory response syndrome (SIRS) of non-infectious origin without acute organ dysfunction; F41.9 Anxiety disorder, unspecified; M54.5 Low back pain; D62 Acute posthemorrhagic anemia; Z20.828 Contact with and (suspected) exposure to other viral communicable diseases; Z91.011 Allergy to milk products; Z68.24 Body mass index [BMI] 24.0-24.9, adult; J18.9 Pneumonia, unspecified organism
CPT/HCPCS: 36415; 43239; 71045; 76700; 80048; 80061; 80076; 85025; 85610; 85730; 86704; 86706; 86708; 86803; 86850; 86900; 86901; 86920; 87040; 87340; 87426; 96365; 96367; 96375; 96376; 99291; C9113; G0378; J1100; J1956; J2250; J2704

== ENCOUNTER 2020-06-26 19:24 | Inpatient (IN) | payer MEDICAID ==
[~2020-06-26] VITALS: Ht 165.1 cm; Wt 64.9 kg
[~2020-06-26 19:24] MED LIST changes: -ACAM1TAB4 OR; -FOLI1TAB6 PO; -LORA0.5T20 PO; -MULT-1018 PO; +MULT-20 PO; -PANT40TA2 PO; -PROP20TA73 PO; -THIA50CA PO
[2020-06-26] MEDS ORDERED: PANTOPRAZOLE 40 MG/10 ML VIAL INJ IV ONE (20:00)
[2020-06-26] MEDS ORDERED: SODIUM CHLORIDE 0.9% 500 ML IV ONE (20:00)
[2020-06-26] MEDS ORDERED: ONDANSETRON HCL 4 MG/2 ML VIAL IV ONE (20:00)
[2020-06-26 20:58] LABS: Basophils # (auto) 0 10 ^3/uL (0-0.2); Eosinophils # (auto) 0 10 ^3/uL (0-0.8); Monocytes # (auto) 1.7 10 ^3/uL (0-1.3); Monocytes % (auto) 9.8 % (0.0-12.0); Nucleated Red Blood Cells % 0.1 %
[2020-06-26 21:00] LABS: Basophils % (auto) 0.3 % (0.0-2.0); Hematocrit 13.9 % (41.0-53.0); Lymphocytes # (auto) 1.7 10 ^3/uL (0.4-5.4); Lymphocytes % (auto) 9.7 % (10.0-50.0); Mean Corpuscular Hemoglobin 26.7 pg (28.0-32.0); Mean Corpuscular Hgb Conc. 32.2 g/dL (32.0-36.0); Neutrophils % (auto) 80.2 % (37.0-80.0); Platelet Count (auto) 140 10^3/uL (140-450); Red Blood Cells 1.68 10^6/uL (4.5-5.90); Red Cell Distribution Width 17.8 % (11.8-14.3); White Blood Cell 17.5 10^3/uL (4.4-10.8)
[2020-06-26 21:11] LABS: Albumin 2.5 g/dL (3.4-5.0); Calcium 7.7 mg/dL (8.5-10.1); Potassium 3.9 mmol/L (3.5-5.1)
[2020-06-26 21:12] LABS: Hemoglobin 4.5 g/dL (13.5-17.5)
[2020-06-26 21:13] LABS: INR 2.12 (0.9-1.15); Partial Thromboplastin Time 37.1 sec (23.0-31.2)
[2020-06-26 21:14] LABS: BUN/Creatinine Ratio 21.2; Bilirubin, Total 4.8 mg/dL (0.2-1.0); Total Protein 6.7 g/dL (6.4-8.2)
[2020-06-26] MEDS ORDERED: MORPHINE SULF INJ 2 MG/ML SYRINGE 1ML IV PRN (23:15)
[2020-06-26] MEDS ORDERED: ACETAMINOPHEN 325 MG TAB PO PRN (23:15)
[2020-06-26] MEDS ORDERED: ONDANSETRON HCL 4 MG/2 ML VIAL IV PRN (23:15)
[2020-06-26] MEDS ORDERED: DOCUSATE SOD 100 MG CAP PO PRN (23:15)
[2020-06-26] MEDS ORDERED: SODIUM CHLORIDE 0.9% 1,000 ML IV SCH (23:15)
[2020-06-26] MEDS ORDERED: MAGNESIUM SULFATE 1GM/100ML 100 ML IV ONE (23:15)
[2020-06-26] MEDS ORDERED: NITROGLYCERIN 0.4 MG SL TAB SL PRN (23:15)
[2020-06-26 23:40] VITALS: BP 97/34
[2020-06-26 23:55] VITALS: BP 92/37
[2020-06-27] VITALS (16 sets, daily range): BP systolic 88–108; BP diastolic 37–65
[2020-06-27] MEDS ORDERED: SODIUM CHLORIDE 0.9% 500 ML IV ONE (03:45)
[2020-06-27] MEDS ORDERED: PANT40T PO (05:08)
[2020-06-27] MEDS ORDERED: SUCR1TAB PO (05:08)
[2020-06-27 06:02] LABS: Hematocrit 15.1 % (41.0-53.0); Red Blood Cells 1.81 10^6/uL (4.5-5.90)
[2020-06-27] MEDS: LACTULOSE 20Gm/30ML SOLN PO SCH ×3 (06:03→21:15)
[2020-06-27 06:05] LABS: Mean Corpuscular Hemoglobin 28.9 pg (28.0-32.0); Mean Corpuscular Hgb Conc. 34.6 g/dL (32.0-36.0); Mean Corpuscular Volume 83.4 fL (80.0-100.0); Platelet Count (auto) 58 10^3/uL (140-450); White Blood Cell 8.6 10^3/uL (4.4-10.8)
[2020-06-27 06:19] LABS: Hemoglobin 5.2 g/dL (13.5-17.5)
[2020-06-27 06:20] LABS: Albumin 1.8 g/dL (3.4-5.0); Calcium 6.1 mg/dL (8.5-10.1); Potassium 3.6 mmol/L (3.5-5.1)
[2020-06-27 06:23] LABS: Band Neutrophils % (manual) 0; Basophils % (manual) 0 (0.0-2.0); Blast Cells 0; Eosinophils % (manual) 0 (0-7); Myelocytes % 0; Promyelocytes % 0; Reactive Lymphocytes 0
[2020-06-27 06:27] LABS: BUN/Creatinine Ratio 38.1; Bilirubin, Total 4.6 mg/dL (0.2-1.0); Total Protein 4.8 g/dL (6.4-8.2)
[2020-06-27 07:54] LABS: Lymphocytes % (manual) 16 (10.0-50.0); Metamyelocytes % 1; Monocytes % (manual) 3 (0-12)
[2020-06-27] MEDS: cefTRIAXone 1GM/50ML D5W 50 ML IV SCH (08:30)
[2020-06-27] MEDS: ASCORBIC ACID 500 MG TAB PO SCH ×2 (09:31→21:18)
[2020-06-27] MEDS ORDERED: MULTIPLE VITAMIN TAB PO SCH (10:00)
[2020-06-27] MEDS ORDERED: FAMOTIDINE (10MG/ML) 2ML VL IV SCH (10:00)
[2020-06-27] MEDS ORDERED: ZINC SULFATE 220mg CAP or TAB PO SCH (10:00)
[2020-06-27] MEDS ORDERED: PHYTONADIONE (VIT K)10 MG/ML 1ML VIAL SUBCUT ONE (16:15)
[2020-06-27 16:24] LABS: Eosinophils # (auto) 0 10 ^3/uL (0-0.8); Hemoglobin 8.1 g/dL (13.5-17.5)
[2020-06-27 16:27] LABS: Basophils # (auto) 0 10 ^3/uL (0-0.2); Basophils % (auto) 0.4 % (0.0-2.0); Eosinophils % (auto) 0.4 % (0.0-7.0); Hematocrit 23.5 % (41.0-53.0); Lymphocytes # (auto) 1.1 10 ^3/uL (0.4-5.4); Mean Corpuscular Hgb Conc. 34.4 g/dL (32.0-36.0); Mean Corpuscular Volume 84.2 fL (80.0-100.0); Monocytes # (auto) 1.5 10 ^3/uL (0-1.3); Monocytes % (auto) 14.5 % (0.0-12.0); Neutrophils # (auto) 7.5 10 ^3/uL (1.6-8.6); Neutrophils % (auto) 73.7 % (37.0-80.0); Nucleated Red Blood Cells % 0.1 %; Platelet Count (auto) 84 10^3/uL (140-450); Red Blood Cells 2.79 10^6/uL (4.5-5.90); White Blood Cell 10.2 10^3/uL (4.4-10.8)
[2020-06-27] MEDS: PANTOPRAZOLE 40 MG/10 ML VIAL INJ IV SCH (21:15)
[2020-06-27] MEDS: MAGNESIUM OXIDE 400 MG TAB PO SCH (21:18)
[2020-06-28] VITALS (8 sets, daily range): BP systolic 92–129; BP diastolic 59–76
[2020-06-28 06:12] LABS: Mean Corpuscular Hgb Conc. 34.9 g/dL (32.0-36.0)
[2020-06-28 06:14] LABS: Hematocrit 22.7 % (41.0-53.0); Hemoglobin 7.9 g/dL (13.5-17.5); Mean Corpuscular Hemoglobin 29.2 pg (28.0-32.0); Mean Corpuscular Volume 83.7 fL (80.0-100.0); Platelet Count (auto) 78 10^3/uL (140-450); Red Blood Cells 2.72 10^6/uL (4.5-5.90); Red Cell Distribution Width 16.4 % (11.8-14.3); White Blood Cell 6.2 10^3/uL (4.4-10.8)
[2020-06-28 06:21] LABS: Albumin 2.1 g/dL (3.4-5.0); Basophils % (manual) 0 (0.0-2.0); Blast Cells 0; Calcium 6.8 mg/dL (8.5-10.1); Magnesium 1.7 mg/dL (1.6-2.6); Metamyelocytes % 0; Myelocytes % 0; Promyelocytes % 0; Reactive Lymphocytes 0
[2020-06-28 06:23] LABS: Bilirubin, Total 6.6 mg/dL (0.2-1.0); Phosphorus 1.7 mg/dL (2.5-4.90); Total Protein 5.6 g/dL (6.4-8.2)
[2020-06-28] MEDS: LACTULOSE 20Gm/30ML SOLN PO SCH ×3 (06:35→21:55)
[2020-06-28 06:36] LABS: INR 2.16 (0.9-1.15)
[2020-06-28 06:52] LABS: Potassium 2.8 mmol/L (3.5-5.1)
[2020-06-28] MEDS ORDERED: POTASSIUM CHL 20 Meq TABLET PO ONE (07:15)
[2020-06-28] MEDS: PANTOPRAZOLE 40 MG/10 ML VIAL INJ IV SCH ×2 (09:57→21:55)
[2020-06-28] MEDS: MAGNESIUM OXIDE 400 MG TAB PO SCH ×2 (09:58→21:55)
[2020-06-28] MEDS: ASCORBIC ACID 500 MG TAB PO SCH ×2 (09:58→21:56)
[2020-06-28] MEDS: cefTRIAXone 1GM/50ML D5W 50 ML IV SCH (09:59)
[2020-06-28 11:14] LABS: Band Neutrophils % (manual) 9; Eosinophils % (manual) 1 (0-7); Lymphocytes % (manual) 16 (10.0-50.0); Monocytes % (manual) 13 (0-12)
[2020-06-28 11:19] LABS: Urine Bacteria NONE SEEN /hpf (None Seen); Urine Blood Negative /uL (Negative); Urine Specific Gravity 1.017 (1.001-1.035); Urine WBC 1 /hpf (0 - 3)
[2020-06-28] MEDS ORDERED: OCTREOTIDE ACETATE 100 MCG in SODIUM CHL 0.9% 50 ML IV ONE (11:45)
[2020-06-28 12:31] LABS: Protein, Urine 19.2 mg/dL (0.0-11.9)
[2020-06-28] MEDS: FOLIC ACID 1 MG, MULTIPLE VITAMIN 10 ML, MAGNESIUM SULF SDV 50% 8 MEQ, THIAMINE INJ 100... INJ SCH ×5 (12:51)
[2020-06-28] MEDS: OCTREOTIDE ACETATE 500 MCG in SODIUM CHL 0.9% 99 ML IV SCH ×2 (13:30→21:55)
[2020-06-28] MEDS ORDERED: PHYTONADIONE (VIT K)10 MG/ML 1ML VIAL SUBCUT ONE (13:30)
[2020-06-28] MEDS ORDERED: POTASSIUM PHOSPHATE 26.4 MEQ in SODIUM CHL 0.9% 100 ML IV ONE (13:30)
[2020-06-28] MEDS: MAGNESIUM SULFATE 1GM/100ML 100 ML IV SCH ×3 (13:38→17:00)
[2020-06-28] MEDS ORDERED: PHYTONADIONE(VitK) ORAL Susp 10mg/10ml(1mg/ml) PO ONE (14:30)
[2020-06-28 17:59] LABS: Hematocrit 25.2 % (41.0-53.0); Hemoglobin 8.5 g/dL (13.5-17.5)
[2020-06-29] VITALS (15 sets, daily range): BP systolic 111–128; BP diastolic 66–83
[2020-06-29] MEDS ORDERED: diphenhdrAMINE HCL 50 MG/1 ML VL IV PRN (00:45)
[2020-06-29] MEDS: LACTULOSE 20Gm/30ML SOLN PO SCH ×3 (05:43→21:59)
[2020-06-29] MEDS: cefTRIAXone 1GM/50ML D5W 50 ML IV SCH (09:09)
[2020-06-29] MEDS: OCTREOTIDE ACETATE 500 MCG in SODIUM CHL 0.9% 99 ML IV SCH ×2 (09:09→18:27)
[2020-06-29 09:52] LABS: Hematocrit 25.6 % (41.0-53.0); Hemoglobin 8.6 g/dL (13.5-17.5); Mean Corpuscular Hemoglobin 28.6 pg (28.0-32.0); Mean Corpuscular Hgb Conc. 33.6 g/dL (32.0-36.0); Mean Corpuscular Volume 85.3 fL (80.0-100.0); Platelet Count (auto) 82 10^3/uL (140-450); Red Cell Distribution Width 16.6 % (11.8-14.3); White Blood Cell 3.6 10^3/uL (4.4-10.8)
[2020-06-29 10:01] LABS: Potassium 3.5 mmol/L (3.5-5.1)
[2020-06-29 10:05] LABS: Basophils % (manual) 0 (0.0-2.0); Blast Cells 0; Metamyelocytes % 0; Myelocytes % 0; Promyelocytes % 0; Reactive Lymphocytes 0
[2020-06-29 10:09] LABS: Albumin 2.1 g/dL (3.4-5.0); BUN/Creatinine Ratio 12.5; Bilirubin, Total 5.2 mg/dL (0.2-1.0); Magnesium 2.3 mg/dL (1.6-2.6); Phosphorus 1.6 mg/dL (2.5-4.90)
[2020-06-29 10:33] LABS: INR 1.62 (0.9-1.15)
[2020-06-29] MEDS: PANTOPRAZOLE 40 MG/10 ML VIAL INJ IV SCH ×2 (10:52→21:59)
[2020-06-29] MEDS ORDERED: POTASSIUM CHLORIDE 20 MEQ, LIDOCAINE 1% (LOCAL ANESTH.) 2 ML in SODIUM CHL 0.9% 100 ML IV ONE (12:00)
[2020-06-29] MEDS ORDERED: PHYTONADIONE(VitK) ORAL Susp 10mg/10ml(1mg/ml) PO ONE (12:00)
[2020-06-29 13:15] LABS: Band Neutrophils % (manual) 11; Eosinophils % (manual) 1 (0-7); Lymphocytes % (manual) 17 (10.0-50.0); Monocytes % (manual) 24 (0-12)
[2020-06-29] MEDS: MAGNESIUM OXIDE 400 MG TAB PO SCH (13:19)
[2020-06-29] MEDS: ASCORBIC ACID 500 MG TAB PO SCH ×2 (13:20→22:00)
[2020-06-29] MEDS: FOLIC ACID 1 MG, MULTIPLE VITAMIN 10 ML, MAGNESIUM SULF SDV 50% 8 MEQ, THIAMINE INJ 100... INJ SCH ×5 (16:35)
[2020-06-30] VITALS (11 sets, daily range): BP systolic 119–133; BP diastolic 70–86
[2020-06-30] MEDS ORDERED: OCTREOTIDE ACETATE 500 MCG/ML VL ONE (04:25)
[2020-06-30] MEDS: OCTREOTIDE ACETATE 500 MCG in SODIUM CHL 0.9% 99 ML IV SCH ×3 (04:39→23:31)
[2020-06-30] MEDS: LACTULOSE 20Gm/30ML SOLN PO SCH ×3 (04:57→21:36)
[2020-06-30 05:50] LABS: Hematocrit 25.4 % (41.0-53.0); Hemoglobin 8.7 g/dL (13.5-17.5)
[2020-06-30 06:03] LABS: INR 1.5 (0.9-1.15)
[2020-06-30] MEDS ORDERED: PHYTONADIONE(VitK) ORAL Susp 10mg/10ml(1mg/ml) PO ONE (09:00)
[2020-06-30] MEDS: cefTRIAXone 1GM/50ML D5W 50 ML IV SCH (09:29)
[2020-06-30] MEDS: ASCORBIC ACID 500 MG TAB PO SCH ×2 (09:47→21:36)
[2020-06-30] MEDS: PANTOPRAZOLE 40 MG/10 ML VIAL INJ IV SCH ×2 (09:47→21:36)
[2020-06-30] MEDS: FOLIC ACID 1 MG, MULTIPLE VITAMIN 10 ML, MAGNESIUM SULF SDV 50% 8 MEQ, THIAMINE INJ 100... INJ SCH ×5 (13:33)
[2020-06-30 15:35] LABS: INR 1.41 (0.9-1.15)
[2020-06-30] MEDS ORDERED: PROPOFOL 10 MG/ML 20 ML IV ONE (16:09)
[2020-06-30] MEDS: HYDROcodone-ACET 5/325MG TAB PO PRN ×2 (17:39→21:54)
[2020-07-01] MEDS: HYDROcodone-ACET 5/325MG TAB PO PRN ×2 (01:54→06:26)
[2020-07-01 05:28] VITALS: BP 130/81
[2020-07-01] MEDS: LACTULOSE 20Gm/30ML SOLN PO SCH ×2 (05:31→13:27)
[2020-07-01 07:21] LABS: Hematocrit 27.4 % (41.0-53.0); Hemoglobin 9.2 g/dL (13.5-17.5)
[2020-07-01 07:34] LABS: INR 1.54 (0.9-1.15)
[2020-07-01 08:46] VITALS: BP 128/85
[2020-07-01] MEDS: cefTRIAXone 1GM/50ML D5W 50 ML IV SCH (09:00)
[2020-07-01] MEDS: OCTREOTIDE ACETATE 500 MCG in SODIUM CHL 0.9% 99 ML IV SCH (09:45)
[2020-07-01] MEDS: PANTOPRAZOLE 40 MG/10 ML VIAL INJ IV SCH (10:16)
[2020-07-01] MEDS: ASCORBIC ACID 500 MG TAB PO SCH (10:17)
[2020-07-01] MEDS: FOLIC ACID 1 MG, MULTIPLE VITAMIN 10 ML, MAGNESIUM SULF SDV 50% 8 MEQ, THIAMINE INJ 100... INJ SCH ×5 (12:00)
[2020-07-01 12:38] VITALS: BP 131/86
[2020-07-01 16:06] VITALS: BP 126/79
== END 2020-07-01 17:30 | disposition home or self-care (01) | DRG 280 ==
LOC: ER 19:24 → TELE 23:20 → TELE-WESTW 23:44
PROVIDERS: ADMIT Nurse Practitioner Family; ATTEND Internal Medicine
PROC: 30233N1 Transfusion of Nonautologous Red Blood Cells into Peripheral Vein, Percutaneous Approach (ICD-10-PCS; 2020-06-26)
PROC: 30233K1 Transfusion of Nonautologous Frozen Plasma into Peripheral Vein, Percutaneous Approach (ICD-10-PCS; 2020-06-28)
PROC: 06L38CZ Occlusion of Esophageal Vein with Extraluminal Device, Via Natural or Artificial Opening Endoscopic (ICD-10-PCS; principal; 2020-06-30 16:08)
DX: K70.30 Alcoholic cirrhosis of liver without ascites (principal); N17.0 Acute kidney failure with tubular necrosis; E43 Unspecified severe protein-calorie malnutrition; I85.11 Secondary esophageal varices with bleeding; K72.90 Hepatic failure, unspecified without coma; K29.61 Other gastritis with bleeding; E83.42 Hypomagnesemia; E87.1 Hypo-osmolality and hyponatremia; D62 Acute posthemorrhagic anemia; D68.9 Coagulation defect, unspecified; D69.6 Thrombocytopenia, unspecified; R65.10 Systemic inflammatory response syndrome (SIRS) of non-infectious origin without acute organ dysfunction; K76.6 Portal hypertension; Z20.822 Contact with and (suspected) exposure to COVID-19; K31.89 Other diseases of stomach and duodenum; F32.9 Major depressive disorder, single episode, unspecified; F10.10 Alcohol abuse, uncomplicated; E87.6 Hypokalemia; E78.5 Hyperlipidemia, unspecified; D72.829 Elevated white blood cell count, unspecified; F41.9 Anxiety disorder, unspecified; Z82.49 Family history of ischemic heart disease and other diseases of the circulatory system; Z85.01 Personal history of malignant neoplasm of esophagus; Z87.11 Personal history of peptic ulcer disease; Z71.41 Alcohol abuse counseling and surveillance of alcoholic
CPT/HCPCS: 36415; 36430; 71045; 74176; 80053; 81001; 82105; 82140; 82570; 83036; 83735; 84100; 84132; 84156; 85007; 85014; 85018; 85025; 85027; 85610; 85730; 86850; 86900; 86901; 86920; 87040; 87426; 93005; 96361; 96365; 96375; 99291; C9113; G0378; J0696; J2001; J2405; J2704; J3430; J3490

== ENCOUNTER 2020-07-26 13:10 | Inpatient (IN) | payer MEDICAID ==
[~2020-07-26] VITALS: Ht 165.1 cm; Wt 63.7 kg
[~2020-07-26 13:10] MED LIST changes: +PANT40T PO; +SUCR1TAB PO
[2020-07-26 14:40] LABS: Basophils # (auto) 0 10 ^3/uL (0-0.2); Basophils % (auto) 0.4 % (0.0-2.0); Eosinophils # (auto) 0.1 10 ^3/uL (0-0.8); Eosinophils % (auto) 0.8 % (0.0-7.0); Hemoglobin 10.6 g/dL (13.5-17.5); Lymphocytes # (auto) 0.9 10 ^3/uL (0.4-5.4); Lymphocytes % (auto) 10.3 % (10.0-50.0); Mean Corpuscular Hgb Conc. 33.1 g/dL (32.0-36.0); Mean Corpuscular Volume 87.6 fL (80.0-100.0); Monocytes # (auto) 0.5 10 ^3/uL (0-1.3); Neutrophils # (auto) 7.5 10 ^3/uL (1.6-8.6); Neutrophils % (auto) 82.5 % (37.0-80.0); Nucleated Red Blood Cells % 0.2 %; Platelet Count (auto) 164 10^3/uL (140-450); Red Blood Cells 3.66 10^6/uL (4.5-5.90); Red Cell Distribution Width 23.2 % (11.8-14.3); White Blood Cell 9.1 10^3/uL (4.4-10.8)
[2020-07-26 15:00] LABS: Albumin 2.1 g/dL (3.4-5.0); Calcium 8.8 mg/dL (8.5-10.1); Potassium 3.6 mmol/L (3.5-5.1)
[2020-07-26 15:03] LABS: BUN/Creatinine Ratio 12.8; Bilirubin, Total 8.7 mg/dL (0.2-1.0); Total Protein 8.2 g/dL (6.4-8.2)
[2020-07-26 15:05] LABS: INR 1.59 (0.9-1.15); Partial Thromboplastin Time 39.3 sec (23.0-31.2)
[2020-07-26] MEDS ORDERED: cloNIDine HCL 0.1 MG TAB PO ONE (16:30)
[2020-07-26] MEDS ORDERED: NITROGLYCERIN 0.4 MG SL TAB SL PRN ×2 (18:30→18:45)
[2020-07-26] MEDS ORDERED: MORPHINE SULF INJ 2 MG/ML SYRINGE 1ML IV PRN ×3 (18:30→19:00)
[2020-07-26] MEDS ORDERED: cefTRIAXone 1GM/50ML D5W 50 ML IV ONE (19:00)
[2020-07-26] MEDS ORDERED: chlordiazePOXIDE HCL 25 MG CAP PO PRN (19:30)
[2020-07-26] MEDS ORDERED: LORazepam 2MG/ML-1ML VIAL IV PRN (19:30)
[2020-07-26] MEDS ORDERED: chlordiazePOXIDE HCL 25 MG CAP PO ONE (19:30)
[2020-07-26 19:49] LABS: Urine Bacteria NONE SEEN /hpf (None Seen); Urine Blood Negative /uL (Negative); Urine Specific Gravity 1.018 (1.001-1.035); Urine WBC 4 /hpf (0 - 3)
[2020-07-26] MEDS: PROMETHAZINE HCL 25 MG/ML 1ML IV PRN (21:08)
[2020-07-26] MEDS: MORPHINE SULF INJ 2 MG/ML SYRINGE 1ML IV PRN (21:09)
[2020-07-26 22:32] VITALS: BP 131/85
[2020-07-26 23:00] VITALS: BP 131/85
[2020-07-26] MEDS ORDERED: SUCR1TAB PO (23:00)
[2020-07-26] MEDS ORDERED: FERR-20 PO (23:00)
[2020-07-27] MEDS: metroNIDAZOLE 500MG/100ML 100 ML IV SCH ×4 (00:01→21:59)
[2020-07-27 00:54] LABS: Hemoglobin 9.4 g/dL (13.5-17.5)
[2020-07-27] MEDS: chlordiazePOXIDE HCL 25 MG CAP PO SCH ×3 (02:17→12:31)
[2020-07-27] MEDS: PROMETHAZINE HCL 25 MG/ML 1ML IV PRN (05:59)
[2020-07-27] MEDS: MORPHINE SULF INJ 2 MG/ML SYRINGE 1ML IV PRN (06:00)
[2020-07-27 06:14] LABS: Basophils # (auto) 0 10 ^3/uL (0-0.2); Basophils % (auto) 0.3 % (0.0-2.0); Eosinophils # (auto) 0.2 10 ^3/uL (0-0.8); Eosinophils % (auto) 2.2 % (0.0-7.0); Hematocrit 27.6 % (41.0-53.0); Hemoglobin 9.3 g/dL (13.5-17.5); Lymphocytes # (auto) 1.1 10 ^3/uL (0.4-5.4); Lymphocytes % (auto) 12.9 % (10.0-50.0); Mean Corpuscular Hemoglobin 29.4 pg (28.0-32.0); Mean Corpuscular Hgb Conc. 33.8 g/dL (32.0-36.0); Mean Corpuscular Volume 87.1 fL (80.0-100.0); Monocytes # (auto) 0.5 10 ^3/uL (0-1.3); Monocytes % (auto) 6.3 % (0.0-12.0); Neutrophils # (auto) 6.4 10 ^3/uL (1.6-8.6); Neutrophils % (auto) 78.3 % (37.0-80.0); Nucleated Red Blood Cells % 0.1 %; Platelet Count (auto) 109 10^3/uL (140-450); Red Blood Cells 3.16 10^6/uL (4.5-5.90); Red Cell Distribution Width 22.9 % (11.8-14.3); White Blood Cell 8.2 10^3/uL (4.4-10.8)
[2020-07-27 06:26] LABS: Potassium 3.8 mmol/L (3.5-5.1)
[2020-07-27 06:35] LABS: Albumin 1.7 g/dL (3.4-5.0); BUN/Creatinine Ratio 17.1; Bilirubin, Total 8.1 mg/dL (0.2-1.0); Calcium 8.4 mg/dL (8.5-10.1); Total Protein 6.8 g/dL (6.4-8.2)
[2020-07-27 09:00] VITALS: BP 139/69
[2020-07-27] MEDS: THIAMINE 100mg/ml INJ (200mg/2ml VIAL) IV SCH (09:37)
[2020-07-27] MEDS: cefTRIAXone 1GM/50ML D5W 50 ML IV SCH (09:37)
[2020-07-27] MEDS: PANTOPRAZOLE 40 MG TAB PO SCH (09:37)
[2020-07-27] MEDS ORDERED: FUROSEMIDE 20 MG TAB PO SCH (11:45)
[2020-07-27] MEDS ORDERED: PHYTONADIONE (VIT K)10 MG/ML 1ML VIAL SUBCUT ONE (11:45)
[2020-07-27] MEDS ORDERED: FUROSEMIDE 40 MG TAB PO ONE (12:00)
[2020-07-27 12:23] LABS: Hematocrit 28.1 % (41.0-53.0); Hemoglobin 9.5 g/dL (13.5-17.5)
[2020-07-27] MEDS: SPIRONOLACTONE 25 MG TAB PO SCH (12:32)
[2020-07-27 13:00] VITALS: BP 127/76
[2020-07-27 15:20] LABS: INR 1.71 (0.9-1.15); Partial Thromboplastin Time 41.6 sec (23.0-31.2)
[2020-07-27 17:00] VITALS: BP 119/71
[2020-07-27 22:00] VITALS: BP 128/81
[2020-07-28 05:30] VITALS: BP 126/73
[2020-07-28] MEDS: metroNIDAZOLE 500MG/100ML 100 ML IV SCH ×3 (05:50→22:00)
[2020-07-28] MEDS: chlordiazePOXIDE HCL 25 MG CAP PO SCH ×4 (05:50→16:59)
[2020-07-28 07:07] LABS: Albumin 1.7 g/dL (3.4-5.0); Calcium 8.2 mg/dL (8.5-10.1); Potassium 3.1 mmol/L (3.5-5.1)
[2020-07-28 07:12] LABS: Total Protein 6.7 g/dL (6.4-8.2)
[2020-07-28 08:41] VITALS: BP 124/69
[2020-07-28] MEDS: cefTRIAXone 1GM/50ML D5W 50 ML IV SCH (08:48)
[2020-07-28] MEDS: THIAMINE 100mg/ml INJ (200mg/2ml VIAL) IV SCH (08:49)
[2020-07-28] MEDS: FUROSEMIDE 40 MG TAB PO SCH (08:49)
[2020-07-28] MEDS: PANTOPRAZOLE 40 MG TAB PO SCH (08:49)
[2020-07-28] MEDS: SPIRONOLACTONE 25 MG TAB PO SCH (08:50)
[2020-07-28] MEDS ORDERED: POTASSIUM CHL 20 Meq TABLET PO ONE (11:00)
[2020-07-28 12:00] LABS: INR 1.87 (0.9-1.15); Partial Thromboplastin Time 39.5 sec (23.0-31.2)
[2020-07-28 13:00] VITALS: BP 125/79
[2020-07-28 20:00] VITALS: BP 127/80
[2020-07-28] MEDS: POTASSIUM CHL 20 Meq TABLET PO SCH (20:00)
[2020-07-28] MEDS: MORPHINE SULF INJ 2 MG/ML SYRINGE 1ML IV PRN (21:16)
[2020-07-28 22:00] VITALS: BP 127/80
[2020-07-29 05:00] VITALS: BP 117/64
[2020-07-29] MEDS: metroNIDAZOLE 500MG/100ML 100 ML IV SCH (06:00)
[2020-07-29] MEDS: chlordiazePOXIDE HCL 25 MG CAP PO SCH ×3 (06:00→12:34)
[2020-07-29 09:00] VITALS: BP 118/75
[2020-07-29] MEDS: POTASSIUM CHL 20 Meq TABLET PO SCH (09:35)
[2020-07-29] MEDS: PANTOPRAZOLE 40 MG TAB PO SCH (09:36)
[2020-07-29] MEDS: cefTRIAXone 1GM/50ML D5W 50 ML IV SCH (09:36)
[2020-07-29] MEDS: SPIRONOLACTONE 25 MG TAB PO SCH (09:39)
[2020-07-29] MEDS: THIAMINE 100mg/ml INJ (200mg/2ml VIAL) IV SCH (09:40)
[2020-07-29] MEDS: FUROSEMIDE 40 MG TAB PO SCH (09:40)
[2020-07-29 12:23] VITALS: BP 118/75
[2020-07-29 13:00] VITALS: BP 107/55
== END 2020-07-29 14:33 | disposition home or self-care (01) | DRG 280 ==
LOC: ER 13:10 → TELE 18:23 → ER 18:27 → TELE-WESTW 22:28
PROVIDERS: ADMIT Internal Medicine; ATTEND Family Medicine
PROC: 0W9G3ZZ Drainage of Peritoneal Cavity, Percutaneous Approach (ICD-10-PCS; principal; 2020-07-28)
DX: K70.31 Alcoholic cirrhosis of liver with ascites (principal); D68.9 Coagulation defect, unspecified; E44.1 Mild protein-calorie malnutrition; Z20.822 Contact with and (suspected) exposure to COVID-19; D63.8 Anemia in other chronic diseases classified elsewhere; E87.6 Hypokalemia; Z79.899 Other long term (current) drug therapy; Z87.11 Personal history of peptic ulcer disease; Z82.49 Family history of ischemic heart disease and other diseases of the circulatory system
CPT/HCPCS: 10022; 36415; 74176; 76700; 76942; 80053; 81001; 82150; 82378; 83690; 83986; 85014; 85018; 85025; 85610; 85730; 87081; 87086; 87205; 87426; 89051; 96365; 96375; G0378; J0696; J3430; J3490

== ENCOUNTER 2021-01-09 17:02 | Inpatient (IN) | payer MEDICAID ==
[~2021-01-09] VITALS: Ht 165.1 cm; Wt 56.0 kg
[~2021-01-09 17:02] MED LIST changes: +FERR-20 PO
[2021-01-09] MEDS ORDERED: PANTOPRAZOLE 40mg/50ML NS AE 50 ML IV ONE (17:45)
[2021-01-09 18:13] LABS: INR 2.61 (0.9-1.15); Partial Thromboplastin Time 46.7 sec (23.6-33.0)
[2021-01-09 18:14] LABS: Albumin 2.3 g/dL (3.4-5.0); BUN/Creatinine Ratio 7.1; Calcium 8.6 mg/dL (8.5-10.1); Magnesium 2.1 mg/dL (1.6-2.6); Potassium 3.4 mmol/L (3.5-5.1)
[2021-01-09 18:25] LABS: Bilirubin, Total 22.5 mg/dL (0.2-1.0); Total Protein 7.1 g/dL (6.4-8.2)
[2021-01-09 18:44] LABS: Hematocrit 33.1 % (41.0-53.0); Hemoglobin 11.1 g/dL (13.5-17.5); Mean Corpuscular Hemoglobin 32.7 pg (28.0-32.0); Mean Corpuscular Hgb Conc. 33.7 g/dL (32.0-36.0); Mean Corpuscular Volume 97.2 fL (80.0-100.0); Red Blood Cells 3.41 10^6/uL (4.5-5.90); Red Cell Distribution Width 17.2 % (11.8-14.3); White Blood Cell 9.6 10^3/uL (4.4-10.8)
[2021-01-09 20:07] LABS: Band Neutrophils % (manual) 2; Basophils % (manual) 0 (0.0-2.0); Blast Cells 0; Eosinophils % (manual) 1 (0-7); Lymphocytes % (manual) 9 (10.0-50.0); Metamyelocytes % 0; Monocytes % (manual) 7 (0-12); Myelocytes % 0; Promyelocytes % 0; Reactive Lymphocytes 0
[2021-01-09] MEDS ORDERED: POTASSIUM CHL 20 Meq TABLET PO ONE (23:45)
[2021-01-09] MEDS ORDERED: NITROGLYCERIN 0.4 MG SL TAB SL PRN (23:45)
[2021-01-09] MEDS ORDERED: MORPHINE SULFATE INJECTION 2 MG/ML SYRG IV PRN (23:45)
[2021-01-09] MEDS ORDERED: ACETAMINOPHEN 325 MG TAB PO PRN (23:45)
[2021-01-09] MEDS ORDERED: ONDANSETRON HCL 4 MG/2 ML VIAL IV PRN (23:45)
[2021-01-10] MEDS ORDERED: ALBUMIN 25% 50 ML IV ONE
[2021-01-10] MEDS: PANTOPRAZOLE 40mg/50ML NS AE 50 ML IV SCH ×3 (00:30→11:32)
[2021-01-10] MEDS: HYDROcodone-ACET 5/325MG TAB PO PRN ×3 (00:55→21:50)
[2021-01-10] MEDS: SODIUM CHLORIDE 0.9% 1,000 ML IV SCH ×2 (01:15→16:56)
[2021-01-10 03:50] LABS: Hematocrit 31.4 % (41.0-53.0); Hemoglobin 10.4 g/dL (13.5-17.5); Mean Corpuscular Hemoglobin 31.9 pg (28.0-32.0); Mean Corpuscular Hgb Conc. 33.2 g/dL (32.0-36.0); Mean Corpuscular Volume 95.9 fL (80.0-100.0); Red Blood Cells 3.28 10^6/uL (4.5-5.90); Red Cell Distribution Width 17.2 % (11.8-14.3); White Blood Cell 8.6 10^3/uL (4.4-10.8)
[2021-01-10 03:54] LABS: Basophils % (manual) 0 (0.0-2.0); Blast Cells 0; Eosinophils % (manual) 0 (0-7); Metamyelocytes % 0; Myelocytes % 0; Promyelocytes % 0; Reactive Lymphocytes 0
[2021-01-10 03:58] LABS: Calcium 8.4 mg/dL (8.5-10.1); Potassium 3.7 mmol/L (3.5-5.1)
[2021-01-10 04:01] LABS: Albumin 2.2 g/dL (3.4-5.0); BUN/Creatinine Ratio 7.6
[2021-01-10 04:13] LABS: Bilirubin, Total 22.2 mg/dL (0.2-1.0); Total Protein 6.5 g/dL (6.4-8.2)
[2021-01-10 07:09] LABS: Band Neutrophils % (manual) 19; Lymphocytes % (manual) 7 (10.0-50.0); Monocytes % (manual) 10 (0-12)
[2021-01-10] MEDS: SUCRALFATE 1 GM TAB PO SCH ×4 (07:09→21:46)
[2021-01-10] MEDS ORDERED: cefTRIAXone 1GM/50ML D5W 50 ML IV SCH (09:00)
[2021-01-10] MEDS: ASCORBIC ACID 500 MG TAB PO SCH ×2 (11:12→21:47)
[2021-01-10] MEDS: ZINC SULFATE 220mg CAP or TAB PO SCH (11:12)
[2021-01-10] MEDS: MULTIPLE VITAMIN TAB PO SCH (11:12)
[2021-01-10 11:17] LABS: Urine Bacteria FEW /hpf (None Seen); Urine Blood Negative /uL (Negative); Urine Mucus FEW (None Seen); Urine Specific Gravity 1.013 (1.001-1.035); Urine WBC 2 /hpf (0 - 3)
[2021-01-10] MEDS: FUROSEMIDE 40 MG/4 ML VIAL IV SCH (12:16)
[2021-01-10] MEDS ORDERED: THIAMINE HCL 100 MG TAB PO ONE (13:30)
[2021-01-10] MEDS ORDERED: PHYTONADIONE(VitK) ORAL Susp 10mg/10ml(1mg/ml) PO ONE (13:30)
[2021-01-10] MEDS ORDERED: diphenhdrAMINE HCL 50 MG/1 ML VL IV ONE (17:00)
[2021-01-10 17:30] VITALS: BP 131/64
[2021-01-10 17:45] VITALS: BP 126/75
[2021-01-10] MEDS: PANTOPRAZOLE 40 MG/10 ML VIAL INJ IV SCH (21:46)
[2021-01-10 22:00] VITALS: BP 118/72
[2021-01-10] MEDS ORDERED: PANTOPRAZOLE 40 MG/10 ML VIAL INJ IV SCH (22:00)
[2021-01-10] MEDS ORDERED: diphenhdrAMINE HCL 25 MG CAP PO ONE (23:45)
[2021-01-10] MEDS ORDERED: ACETAMINOPHEN 500 MG TAB PO ONE (23:45)
[2021-01-11] VITALS (18 sets, daily range): BP systolic 105–137; BP diastolic 32–82
[2021-01-11] MEDS: MORPHINE SULFATE INJECTION 2 MG/ML SYRG IV PRN ×3 (00:13→19:56)
[2021-01-11 06:30] LABS: Basophils # (auto) 0.1 10 ^3/uL (0-0.2); Basophils % (auto) 0.6 % (0.0-2.0); Eosinophils # (auto) 0.1 10 ^3/uL (0-0.8); Eosinophils % (auto) 1.4 % (0.0-7.0); Hematocrit 27.9 % (41.0-53.0); Hemoglobin 9.7 g/dL (13.5-17.5); Lymphocytes # (auto) 2.1 10 ^3/uL (0.4-5.4); Lymphocytes % (auto) 23.4 % (10.0-50.0); Mean Corpuscular Hemoglobin 33.6 pg (28.0-32.0); Mean Corpuscular Hgb Conc. 34.7 g/dL (32.0-36.0); Mean Corpuscular Volume 96.9 fL (80.0-100.0); Monocytes # (auto) 0.6 10 ^3/uL (0-1.3); Monocytes % (auto) 6.4 % (0.0-12.0); Neutrophils # (auto) 6.1 10 ^3/uL (1.6-8.6); Neutrophils % (auto) 68.2 % (37.0-80.0); Nucleated Red Blood Cells % 0.2 %; Red Blood Cells 2.88 10^6/uL (4.5-5.90); Red Cell Distribution Width 17.1 % (11.8-14.3); White Blood Cell 8.9 10^3/uL (4.4-10.8)
[2021-01-11 06:36] LABS: INR 2.18 (0.9-1.15)
[2021-01-11 06:41] LABS: Potassium 3.6 mmol/L (3.5-5.1)
[2021-01-11 06:52] LABS: Albumin 2.3 g/dL (3.4-5.0); BUN/Creatinine Ratio 7.5; Bilirubin, Total 21.6 mg/dL (0.2-1.0); Calcium 8.4 mg/dL (8.5-10.1); Magnesium 2.2 mg/dL (1.6-2.6); Total Protein 6.3 g/dL (6.4-8.2)
[2021-01-11] MEDS: SUCRALFATE 1 GM TAB PO SCH ×4 (07:28→21:25)
[2021-01-11] MEDS: FUROSEMIDE 40 MG/4 ML VIAL IV SCH (09:08)
[2021-01-11] MEDS: ZINC SULFATE 220mg CAP or TAB PO SCH (09:09)
[2021-01-11] MEDS: THIAMINE HCL 100 MG TAB PO SCH (09:09)
[2021-01-11] MEDS: PANTOPRAZOLE 40 MG/10 ML VIAL INJ IV SCH ×2 (09:09→21:25)
[2021-01-11] MEDS: PHYTONADIONE(VitK) ORAL Susp 10mg/10ml(1mg/ml) PO SCH (09:59)
[2021-01-11] MEDS ORDERED: GOLYTELY 4L KIT PO ONE (10:00)
[2021-01-11] MEDS ORDERED: PHYTONADIONE (VIT K)10 MG/ML 1ML VIAL IV ONE (11:00)
[2021-01-11] MEDS ORDERED: phytonadione 10 MG in SODIUM CHL 0.9% 50 ML IV ONE (11:15)
[2021-01-11] MEDS: ASCORBIC ACID 500 MG TAB PO SCH ×2 (11:22→21:25)
[2021-01-11] MEDS: MULTIPLE VITAMIN TAB PO SCH (11:22)
[2021-01-12] VITALS (9 sets, daily range): BP systolic 105–120; BP diastolic 56–77
[2021-01-12] MEDS ORDERED: GOLYTELY 4L KIT PO ONE (04:00)
[2021-01-12 05:40] LABS: INR 2.15 (0.9-1.15)
[2021-01-12 05:40] LABS: Hematocrit 28.8 % (41.0-53.0); Hemoglobin 9.9 g/dL (13.5-17.5); Mean Corpuscular Hemoglobin 33.2 pg (28.0-32.0); Mean Corpuscular Hgb Conc. 34.5 g/dL (32.0-36.0); Mean Corpuscular Volume 96.3 fL (80.0-100.0); Red Blood Cells 2.99 10^6/uL (4.5-5.90); White Blood Cell 9.4 10^3/uL (4.4-10.8)
[2021-01-12 05:49] LABS: Potassium 3.1 mmol/L (3.5-5.1)
[2021-01-12 05:57] LABS: Basophils % (manual) 0 (0.0-2.0); Blast Cells 0; Metamyelocytes % 0; Promyelocytes % 0; Reactive Lymphocytes 0
[2021-01-12 06:15] LABS: Albumin 2.5 g/dL (3.4-5.0); BUN/Creatinine Ratio 6.3; Bilirubin, Direct 18.5 mg/dL (0-0.2); Bilirubin, Total 23.6 mg/dL (0.2-1.0); Calcium 8.8 mg/dL (8.5-10.1); Magnesium 1.9 mg/dL (1.6-2.6); Total Protein 6.8 g/dL (6.4-8.2)
[2021-01-12] MEDS: SUCRALFATE 1 GM TAB PO SCH ×5 (06:31→23:06)
[2021-01-12 07:31] LABS: Band Neutrophils % (manual) 23; Eosinophils % (manual) 1 (0-7); Lymphocytes % (manual) 15 (10.0-50.0); Monocytes % (manual) 7 (0-12); Myelocytes % 1
[2021-01-12] MEDS: MULTIPLE VITAMIN TAB PO SCH (10:05)
[2021-01-12] MEDS: ZINC SULFATE 220mg CAP or TAB PO SCH (10:05)
[2021-01-12] MEDS: ASCORBIC ACID 500 MG TAB PO SCH ×2 (10:05→23:06)
[2021-01-12] MEDS: THIAMINE HCL 100 MG TAB PO SCH (10:05)
[2021-01-12] MEDS: PANTOPRAZOLE 40 MG/10 ML VIAL INJ IV SCH ×2 (10:06→23:08)
[2021-01-12] MEDS: FUROSEMIDE 40 MG/4 ML VIAL IV SCH (10:41)
[2021-01-12] MEDS: HYDROcodone-ACET 5/325MG TAB PO PRN (10:43)
[2021-01-12] MEDS: PHYTONADIONE(VitK) ORAL Susp 10mg/10ml(1mg/ml) PO SCH (12:46)
[2021-01-12] MEDS ORDERED: MAGNESIUM SULFATE 1GM/100ML 100 ML IV ONE ×2 (14:45→20:00)
[2021-01-12] MEDS ORDERED: POTASSIUM CHL 20 Meq TABLET PO ONE (14:45)
[2021-01-12] MEDS: SPIRONOLACTONE 25 MG TAB PO SCH (18:04)
[2021-01-12] MEDS: MORPHINE SULFATE INJECTION 2 MG/ML SYRG IV PRN (18:06)
[2021-01-13] VITALS (10 sets, daily range): BP systolic 103–120; BP diastolic 51–95
[2021-01-13 05:13] LABS: Hematocrit 24.2 % (41.0-53.0); Hemoglobin 8.6 g/dL (13.5-17.5); Mean Corpuscular Hemoglobin 33.7 pg (28.0-32.0); Mean Corpuscular Hgb Conc. 35.3 g/dL (32.0-36.0); Mean Corpuscular Volume 95.2 fL (80.0-100.0); Red Blood Cells 2.54 10^6/uL (4.5-5.90); Red Cell Distribution Width 16.8 % (11.8-14.3); White Blood Cell 5.6 10^3/uL (4.4-10.8)
[2021-01-13 05:32] LABS: INR 2.19 (0.9-1.15)
[2021-01-13 05:48] LABS: Potassium 3.2 mmol/L (3.5-5.1)
[2021-01-13 05:56] LABS: Albumin 2.2 g/dL (3.4-5.0); BUN/Creatinine Ratio 4.8; Basophils % (manual) 0 (0.0-2.0); Bilirubin, Total 21.2 mg/dL (0.2-1.0); Blast Cells 0; Calcium 8.5 mg/dL (8.5-10.1); Magnesium 2.1 mg/dL (1.6-2.6); Metamyelocytes % 0; Myelocytes % 0; Promyelocytes % 0; Reactive Lymphocytes 0; Total Protein 5.8 g/dL (6.4-8.2)
[2021-01-13] MEDS ORDERED: LIDOCAINE VISCOUS 2% 15ML UD ONE (08:35)
[2021-01-13] MEDS ORDERED: SODIUM CHLORIDE LOCK 10 ML ONE (08:35)
[2021-01-13] MEDS ORDERED: diphenhdrAMINE HCL 50 MG/1 ML VL ONE (08:36)
[2021-01-13] MEDS ORDERED: fentaNYL CITRATE 100 MCG/2 ML VL ONE (08:36)
[2021-01-13] MEDS ORDERED: MIDAZOLAM HCL 5 MG/ML-1ML VIAL ONE (08:36)
[2021-01-13 09:30] LABS: Band Neutrophils % (manual) 14; Eosinophils % (manual) 1 (0-7); Lymphocytes % (manual) 12 (10.0-50.0); Monocytes % (manual) 4 (0-12)
[2021-01-13] MEDS: PANTOPRAZOLE 40 MG/10 ML VIAL INJ IV SCH ×2 (09:46→10:03)
[2021-01-13] MEDS: ASCORBIC ACID 500 MG TAB PO SCH ×2 (09:47→21:54)
[2021-01-13] MEDS: THIAMINE HCL 100 MG TAB PO SCH (09:48)
[2021-01-13] MEDS: ZINC SULFATE 220mg CAP or TAB PO SCH (09:48)
[2021-01-13] MEDS: MULTIPLE VITAMIN TAB PO SCH (09:48)
[2021-01-13] MEDS: SPIRONOLACTONE 25 MG TAB PO SCH (09:50)
[2021-01-13] MEDS: PHYTONADIONE(VitK) ORAL Susp 10mg/10ml(1mg/ml) PO SCH (09:50)
[2021-01-13] MEDS: HYDROcodone-ACET 5/325MG TAB PO PRN (10:03)
[2021-01-13] MEDS: FUROSEMIDE 40 MG/4 ML VIAL IV SCH (10:03)
[2021-01-13] MEDS: SUCRALFATE 1 GM TAB PO SCH ×3 (11:30→21:54)
[2021-01-13] MEDS ORDERED: POTASSIUM EFFERVESENT TAB 25 MEQ PO ONE (11:45)
[2021-01-13] MEDS: MORPHINE SULFATE INJECTION 2 MG/ML SYRG IV PRN ×2 (16:00→22:02)
[2021-01-13] MEDS: FERROUS SULFATE 325mg EC TAB PO SCH (18:02)
[2021-01-14] VITALS (19 sets, daily range): BP systolic 105–122; BP diastolic 48–74
[2021-01-14 08:58] LABS: Basophils # (auto) 0.1 10 ^3/uL (0-0.2); Basophils % (auto) 0.7 % (0.0-2.0); Eosinophils # (auto) 0.1 10 ^3/uL (0-0.8); Eosinophils % (auto) 1.3 % (0.0-7.0); Hematocrit 26.1 % (41.0-53.0); Hemoglobin 9.1 g/dL (13.5-17.5); Lymphocytes # (auto) 1.3 10 ^3/uL (0.4-5.4); Lymphocytes % (auto) 15.2 % (10.0-50.0); Mean Corpuscular Hemoglobin 33.5 pg (28.0-32.0); Mean Corpuscular Hgb Conc. 34.9 g/dL (32.0-36.0); Monocytes # (auto) 0.6 10 ^3/uL (0-1.3); Monocytes % (auto) 7.4 % (0.0-12.0); Neutrophils # (auto) 6.4 10 ^3/uL (1.6-8.6); Neutrophils % (auto) 75.4 % (37.0-80.0); Red Blood Cells 2.72 10^6/uL (4.5-5.90); Red Cell Distribution Width 16.9 % (11.8-14.3); White Blood Cell 8.5 10^3/uL (4.4-10.8)
[2021-01-14 09:17] LABS: Albumin 2.5 g/dL (3.4-5.0); Calcium 8.7 mg/dL (8.5-10.1)
[2021-01-14 09:22] LABS: BUN/Creatinine Ratio 2.4; Bilirubin, Total 21.9 mg/dL (0.2-1.0); Total Protein 6.4 g/dL (6.4-8.2)
[2021-01-14 09:31] LABS: INR 1.8 (0.9-1.15)
[2021-01-14] MEDS: POTASSIUM CHL 20 Meq TABLET PO SCH (11:07)
[2021-01-14] MEDS: MULTIPLE VITAMIN TAB PO SCH (11:07)
[2021-01-14] MEDS: ZINC SULFATE 220mg CAP or TAB PO SCH (11:07)
[2021-01-14] MEDS: SUCRALFATE 1 GM TAB PO SCH ×4 (11:07→21:39)
[2021-01-14] MEDS: THIAMINE HCL 100 MG TAB PO SCH (11:07)
[2021-01-14] MEDS: ASCORBIC ACID 500 MG TAB PO SCH ×2 (11:08→21:39)
[2021-01-14] MEDS: SPIRONOLACTONE 25 MG TAB PO SCH (11:08)
[2021-01-14] MEDS: PANTOPRAZOLE 40 MG/10 ML VIAL INJ IV SCH ×2 (11:09→21:38)
[2021-01-14] MEDS: FUROSEMIDE 40 MG/4 ML VIAL IV SCH (11:10)
[2021-01-14] MEDS: PHYTONADIONE(VitK) ORAL Susp 10mg/10ml(1mg/ml) PO SCH (11:11)
[2021-01-14] MEDS: FERROUS SULFATE 325mg EC TAB PO SCH ×2 (11:30→17:54)
[2021-01-14] MEDS: MORPHINE SULFATE INJECTION 2 MG/ML SYRG IV PRN ×3 (11:30→21:38)
[2021-01-14] MEDS ORDERED: POTASSIUM EFFERVESENT TAB 25 MEQ PO ONE (12:15)
[2021-01-15] VITALS (15 sets, daily range): BP systolic 104–131; BP diastolic 54–82
[2021-01-15 05:51] LABS: Hematocrit 23.7 % (41.0-53.0); Hemoglobin 8.3 g/dL (13.5-17.5); Mean Corpuscular Hemoglobin 33.9 pg (28.0-32.0); Mean Corpuscular Hgb Conc. 35.1 g/dL (32.0-36.0); Mean Corpuscular Volume 96.5 fL (80.0-100.0); Red Blood Cells 2.46 10^6/uL (4.5-5.90); Red Cell Distribution Width 16.9 % (11.8-14.3); White Blood Cell 7.9 10^3/uL (4.4-10.8)
[2021-01-15 05:58] LABS: INR 2.24 (0.9-1.15)
[2021-01-15 06:19] LABS: Basophils % (manual) 0 (0.0-2.0); Blast Cells 0; Promyelocytes % 0; Reactive Lymphocytes 0
[2021-01-15 06:23] LABS: Albumin 2.4 g/dL (3.4-5.0); Calcium 8.5 mg/dL (8.5-10.1); Magnesium 1.6 mg/dL (1.6-2.6); Potassium 3.8 mmol/L (3.5-5.1)
[2021-01-15 06:28] LABS: Bilirubin, Direct 14.1 mg/dL (0-0.2); Bilirubin, Total 21.4 mg/dL (0.2-1.0)
[2021-01-15] MEDS: SUCRALFATE 1 GM TAB PO SCH ×4 (06:39→21:40)
[2021-01-15 06:56] LABS: Band Neutrophils % (manual) 3; Eosinophils % (manual) 2 (0-7); Lymphocytes % (manual) 19 (10.0-50.0); Metamyelocytes % 1; Monocytes % (manual) 9 (0-12); Myelocytes % 1
[2021-01-15] MEDS: FERROUS SULFATE 325mg EC TAB PO SCH ×2 (10:10→17:25)
[2021-01-15] MEDS: THIAMINE HCL 100 MG TAB PO SCH (10:10)
[2021-01-15] MEDS: FUROSEMIDE 40 MG/4 ML VIAL IV SCH (10:10)
[2021-01-15] MEDS: ZINC SULFATE 220mg CAP or TAB PO SCH (10:10)
[2021-01-15] MEDS: PANTOPRAZOLE 40 MG/10 ML VIAL INJ IV SCH ×2 (10:10→21:40)
[2021-01-15] MEDS: POTASSIUM CHL 20 Meq TABLET PO SCH (10:10)
[2021-01-15] MEDS: MULTIPLE VITAMIN TAB PO SCH (10:11)
[2021-01-15] MEDS: ASCORBIC ACID 500 MG TAB PO SCH ×2 (10:11→21:40)
[2021-01-15] MEDS ORDERED: MAGNESIUM SULFATE 1GM/100ML 100 ML IV ONE (13:30)
[2021-01-15] MEDS ORDERED: PHYTONADIONE (VIT K)10 MG/ML 1ML VIAL SUBCUT ONE (13:30)
[2021-01-15] MEDS ORDERED: GOLYTELY 4L KIT PO ONE (13:45)
[2021-01-15] MEDS: phytonadione 10 MG in SODIUM CHL 0.9% 50 ML IV SCH (15:22)
[2021-01-15] MEDS: SPIRONOLACTONE 25 MG TAB PO SCH (15:22)
[2021-01-16 00:54] VITALS: BP 104/66
[2021-01-16 05:00] VITALS: BP 103/52
[2021-01-16 05:22] LABS: Basophils # (auto) 0 10 ^3/uL (0-0.2); Basophils % (auto) 0.4 % (0.0-2.0); Eosinophils # (auto) 0.1 10 ^3/uL (0-0.8); Lymphocytes # (auto) 0.9 10 ^3/uL (0.4-5.4)
[2021-01-16 05:29] LABS: INR 2.18 (0.9-1.15)
[2021-01-16 05:38] LABS: Eosinophils % (auto) 1.4 % (0.0-7.0); Hematocrit 25.5 % (41.0-53.0); Hemoglobin 9.1 g/dL (13.5-17.5); Lymphocytes % (auto) 11.9 % (10.0-50.0); Mean Corpuscular Hemoglobin 34.4 pg (28.0-32.0); Mean Corpuscular Hgb Conc. 35.8 g/dL (32.0-36.0); Mean Corpuscular Volume 96.1 fL (80.0-100.0); Monocytes # (auto) 0.5 10 ^3/uL (0-1.3); Monocytes % (auto) 6.6 % (0.0-12.0); Neutrophils # (auto) 6.2 10 ^3/uL (1.6-8.6); Neutrophils % (auto) 79.7 % (37.0-80.0); Nucleated Red Blood Cells % 0.1 %; Red Blood Cells 2.66 10^6/uL (4.5-5.90); Red Cell Distribution Width 16.9 % (11.8-14.3); White Blood Cell 7.8 10^3/uL (4.4-10.8)
[2021-01-16] MEDS: SUCRALFATE 1 GM TAB PO SCH ×4 (06:02→21:16)
[2021-01-16 09:00] VITALS: BP 99/52
[2021-01-16] MEDS: FUROSEMIDE 40 MG/4 ML VIAL IV SCH (09:15)
[2021-01-16] MEDS: FERROUS SULFATE 325mg EC TAB PO SCH ×2 (09:16→17:42)
[2021-01-16] MEDS: PANTOPRAZOLE 40 MG/10 ML VIAL INJ IV SCH ×2 (09:16→21:16)
[2021-01-16] MEDS: MULTIPLE VITAMIN TAB PO SCH (09:16)
[2021-01-16] MEDS: SPIRONOLACTONE 25 MG TAB PO SCH (09:16)
[2021-01-16] MEDS: ZINC SULFATE 220mg CAP or TAB PO SCH (09:16)
[2021-01-16] MEDS: POTASSIUM CHL 20 Meq TABLET PO SCH (09:16)
[2021-01-16] MEDS: ASCORBIC ACID 500 MG TAB PO SCH ×2 (09:17→21:16)
[2021-01-16] MEDS: THIAMINE HCL 100 MG TAB PO SCH (09:17)
[2021-01-16 13:00] VITALS: BP 117/71
[2021-01-16] MEDS: phytonadione 10 MG in SODIUM CHL 0.9% 50 ML IV SCH (14:44)
[2021-01-16 17:00] VITALS: BP 103/61
[2021-01-16] MEDS: MORPHINE SULFATE INJECTION 2 MG/ML SYRG IV PRN (21:17)
[2021-01-16 22:00] VITALS: BP 115/76
[2021-01-17 04:55] LABS: Hematocrit 26.5 % (41.0-53.0); Hemoglobin 9.3 g/dL (13.5-17.5)
[2021-01-17 05:00] VITALS: BP 105/57
[2021-01-17 05:07] LABS: Potassium 3.9 mmol/L (3.5-5.1)
[2021-01-17 05:11] LABS: INR 2.39 (0.9-1.15)
[2021-01-17 05:12] LABS: Magnesium 1.7 mg/dL (1.6-2.6)
[2021-01-17] MEDS: MORPHINE SULFATE INJECTION 2 MG/ML SYRG IV PRN ×2 (05:17→20:10)
[2021-01-17] MEDS: SUCRALFATE 1 GM TAB PO SCH ×4 (06:33→21:58)
[2021-01-17] MEDS: FERROUS SULFATE 325mg EC TAB PO SCH ×2 (08:35→17:30)
[2021-01-17 09:00] VITALS: BP 106/69
[2021-01-17] MEDS: POTASSIUM CHL 20 Meq TABLET PO SCH (09:54)
[2021-01-17] MEDS: MULTIPLE VITAMIN TAB PO SCH (09:54)
[2021-01-17] MEDS: SPIRONOLACTONE 25 MG TAB PO SCH (09:54)
[2021-01-17] MEDS: ZINC SULFATE 220mg CAP or TAB PO SCH (09:54)
[2021-01-17] MEDS: PANTOPRAZOLE 40 MG/10 ML VIAL INJ IV SCH ×2 (09:55→21:58)
[2021-01-17] MEDS: ASCORBIC ACID 500 MG TAB PO SCH ×2 (09:55→21:59)
[2021-01-17] MEDS: FUROSEMIDE 40 MG/4 ML VIAL IV SCH (09:56)
[2021-01-17] MEDS: THIAMINE HCL 100 MG TAB PO SCH (09:56)
[2021-01-17 13:00] VITALS: BP 109/67
[2021-01-17 17:00] VITALS: BP 110/68
[2021-01-17 20:00] VITALS: BP 114/68
[2021-01-17 22:00] VITALS: BP 114/68
[2021-01-18 05:00] VITALS: BP 102/60
[2021-01-18] MEDS: SUCRALFATE 1 GM TAB PO SCH ×4 (06:42→22:09)
[2021-01-18] MEDS: FERROUS SULFATE 325mg EC TAB PO SCH ×2 (07:55→17:40)
[2021-01-18 08:42] VITALS: BP 109/60
[2021-01-18] MEDS: PANTOPRAZOLE 40 MG/10 ML VIAL INJ IV SCH ×2 (09:54→22:09)
[2021-01-18] MEDS: FUROSEMIDE 40 MG/4 ML VIAL IV SCH (09:55)
[2021-01-18] MEDS: SPIRONOLACTONE 25 MG TAB PO SCH (09:55)
[2021-01-18] MEDS: POTASSIUM CHL 20 Meq TABLET PO SCH (09:56)
[2021-01-18] MEDS: ASCORBIC ACID 500 MG TAB PO SCH ×2 (09:56→22:09)
[2021-01-18] MEDS: MULTIPLE VITAMIN TAB PO SCH (09:56)
[2021-01-18] MEDS: THIAMINE HCL 100 MG TAB PO SCH (09:56)
[2021-01-18] MEDS: ZINC SULFATE 220mg CAP or TAB PO SCH (09:56)
[2021-01-18 12:04] LABS: Basophils # (auto) 0.1 10 ^3/uL (0-0.2); Basophils % (auto) 0.6 % (0.0-2.0); Eosinophils # (auto) 0.1 10 ^3/uL (0-0.8); Hematocrit 30.4 % (41.0-53.0); Hemoglobin 10.5 g/dL (13.5-17.5); Lymphocytes # (auto) 1.4 10 ^3/uL (0.4-5.4); Lymphocytes % (auto) 11.7 % (10.0-50.0); Mean Corpuscular Hemoglobin 33.5 pg (28.0-32.0); Mean Corpuscular Hgb Conc. 34.5 g/dL (32.0-36.0); Mean Corpuscular Volume 96.9 fL (80.0-100.0); Monocytes # (auto) 0.9 10 ^3/uL (0-1.3); Monocytes % (auto) 7.9 % (0.0-12.0); Neutrophils # (auto) 9.2 10 ^3/uL (1.6-8.6); Neutrophils % (auto) 78.8 % (37.0-80.0); Red Blood Cells 3.14 10^6/uL (4.5-5.90); Red Cell Distribution Width 17.1 % (11.8-14.3); White Blood Cell 11.7 10^3/uL (4.4-10.8)
[2021-01-18 12:11] LABS: INR 2.59 (0.9-1.15); Partial Thromboplastin Time 46.4 sec (23.6-33.0)
[2021-01-18 13:00] VITALS: BP 116/68
[2021-01-18] MEDS: HYDROcodone-ACET 5/325MG TAB PO PRN (14:52)
[2021-01-18 16:30] VITALS: BP 106/66
[2021-01-18 20:00] VITALS: BP 111/73
[2021-01-18 22:00] VITALS: BP 111/73
[2021-01-18] MEDS: MORPHINE SULFATE INJECTION 2 MG/ML SYRG IV PRN (23:35)
[2021-01-19 05:27] VITALS: BP 110/60
[2021-01-19] MEDS: SUCRALFATE 1 GM TAB PO SCH ×2 (06:31→11:38)
[2021-01-19] MEDS: FERROUS SULFATE 325mg EC TAB PO SCH (07:45)
[2021-01-19 09:20] VITALS: BP 100/55
[2021-01-19] MEDS: ZINC SULFATE 220mg CAP or TAB PO SCH (09:31)
[2021-01-19] MEDS: SPIRONOLACTONE 25 MG TAB PO SCH (09:31)
[2021-01-19] MEDS: MULTIPLE VITAMIN TAB PO SCH (09:31)
[2021-01-19] MEDS: POTASSIUM CHL 20 Meq TABLET PO SCH (09:31)
[2021-01-19] MEDS: THIAMINE HCL 100 MG TAB PO SCH (09:32)
[2021-01-19] MEDS: ASCORBIC ACID 500 MG TAB PO SCH (09:32)
[2021-01-19] MEDS: PANTOPRAZOLE 40 MG/10 ML VIAL INJ IV SCH (09:33)
[2021-01-19] MEDS: FUROSEMIDE 40 MG/4 ML VIAL IV SCH (09:33)
[2021-01-19 11:08] LABS: Hematocrit 29.1 % (41.0-53.0); Hemoglobin 10.1 g/dL (13.5-17.5)
[2021-01-19 11:20] LABS: INR 2.76 (0.9-1.15)
[2021-01-19 12:36] VITALS: BP 115/70
[2021-01-19] MEDS ORDERED: POTA-220 PO (13:31)
[2021-01-19] MEDS ORDERED: SPIR50TA2 PO (13:31)
[2021-01-19] MEDS ORDERED: PANT40T PO (13:31)
[2021-01-19] MEDS ORDERED: FURO1TAB31 PO (13:31)
== END 2021-01-19 17:01 | disposition home or self-care (01) | DRG 253 ==
LOC: ER 17:02 → TELE 23:34 → TELE-WESTW 01-10 20:09
PROVIDERS: ADMIT Nurse Practitioner Family; ATTEND Internal Medicine
PROC: 30233K1 Transfusion of Nonautologous Frozen Plasma into Peripheral Vein, Percutaneous Approach (ICD-10-PCS; principal; 2021-01-10)
PROC: 30233R1 Transfusion of Nonautologous Platelets into Peripheral Vein, Percutaneous Approach (ICD-10-PCS; 2021-01-14)
DX: K62.5 Hemorrhage of anus and rectum (principal); K70.31 Alcoholic cirrhosis of liver with ascites; D68.4 Acquired coagulation factor deficiency; K72.90 Hepatic failure, unspecified without coma; E88.09 Other disorders of plasma-protein metabolism, not elsewhere classified; K76.6 Portal hypertension; D64.9 Anemia, unspecified; D69.59 Other secondary thrombocytopenia; E87.6 Hypokalemia; R16.1 Splenomegaly, not elsewhere classified; F10.10 Alcohol abuse, uncomplicated; R79.89 Other specified abnormal findings of blood chemistry; Z20.822 Contact with and (suspected) exposure to COVID-19; I10 Essential (primary) hypertension; E78.5 Hyperlipidemia, unspecified; F41.9 Anxiety disorder, unspecified; Z82.49 Family history of ischemic heart disease and other diseases of the circulatory system; Z86.59 Personal history of other mental and behavioral disorders; Z87.11 Personal history of peptic ulcer disease; Z91.011 Allergy to milk products; Z71.41 Alcohol abuse counseling and surveillance of alcoholic
CPT/HCPCS: 36415; 74176; 76705; 80048; 80053; 80076; 81001; 82140; 83735; 84132; 85007; 85014; 85018; 85025; 85027; 85610; 85730; 86850; 86900; 86901; 87426; 96361; 96365; 96366; 96367; 96375; C9113; G0378; J0696; J2250; J3430

== ENCOUNTER 2022-04-16 10:50 | Inpatient (IN) | payer MEDICAID ==
[~2022-04-16] VITALS: Ht 165.1 cm; Wt 62.2 kg
[~2022-04-16 10:50] MED LIST changes: +FURO1TAB31 PO; +POTA-220 PO
[2022-04-16 12:51] LABS: INR 1.97 (0.9-1.15); Partial Thromboplastin Time 36.5 sec (24.6-33.4)
[2022-04-16 12:55] LABS: Albumin 2.3 g/dL (3.4-5.0); Calcium 7.9 mg/dL (8.5-10.1); Potassium 3.5 mmol/L (3.5-5.1)
[2022-04-16 12:57] LABS: BUN/Creatinine Ratio 15.3
[2022-04-16 13:00] LABS: Urine Bacteria FEW /hpf (None Seen); Urine Blood 3+ /uL (Negative); Urine Specific Gravity 1.019 (1.001-1.035); Urine WBC 8 /hpf (0 - 3); Urine WBC Clumps PRESENT /hpf (None Seen)
[2022-04-16 13:08] LABS: Bilirubin, Total 18.1 mg/dL (0.2-1.0)
[2022-04-16 14:11] LABS: Mean Corpuscular Hemoglobin 41.6 pg (28.0-32.0); Mean Corpuscular Hgb Conc. 32.6 g/dL (32.0-36.0); Mean Corpuscular Volume 127.7 fL (80.0-100.0); Red Blood Cells 1.56 10^6/uL (4.5-5.90); White Blood Cell 9.5 10^3/uL (4.4-10.8)
[2022-04-16 14:42] LABS: Red Cell Distribution Width 21.2 % (11.8-14.3)
[2022-04-16 14:46] LABS: Hemoglobin 6.6 g/dL (13.5-17.5)
[2022-04-16 14:47] LABS: Basophils % (manual) 0 (0.0-2.0); Blast Cells 0; Metamyelocytes % 0; Myelocytes % 0; Promyelocytes % 0; Reactive Lymphocytes 0
[2022-04-16 14:49] LABS: Band Neutrophils % (manual) 10; Eosinophils % (manual) 1 (0-7); Lymphocytes % (manual) 15 (10.0-50.0); Monocytes % (manual) 6 (0-12)
[2022-04-16] MEDS ORDERED: LORazepam 2MG/ML-1ML VIAL IV PRN (16:45)
[2022-04-16] MEDS ORDERED: ONDANSETRON HCL 4 MG/2 ML VIAL IV PRN (16:45)
[2022-04-16] MEDS ORDERED: MORPHINE SULFATE INJ 2 MG/ml SYRG IV PRN (16:45)
[2022-04-16 23:06] VITALS: BP 97/54
[2022-04-16 23:15] VITALS: BP 100/60
[2022-04-16 23:30] VITALS: BP 103/61
[2022-04-17] VITALS (12 sets, daily range): BP systolic 97–116; BP diastolic 52–80
[2022-04-17 07:25] LABS: Hematocrit 20.1 % (41.0-53.0); Mean Corpuscular Hemoglobin 39.2 pg (28.0-32.0); Mean Corpuscular Volume 118.7 fL (80.0-100.0); Red Cell Distribution Width 29.5 % (11.8-14.3); White Blood Cell 8.5 10^3/uL (4.4-10.8)
[2022-04-17 07:26] LABS: Calcium 7.6 mg/dL (8.5-10.1); Potassium 3.4 mmol/L (3.5-5.1)
[2022-04-17 07:29] LABS: BUN/Creatinine Ratio 15.9; Bilirubin, Total 15.5 mg/dL (0.2-1.0)
[2022-04-17 07:33] LABS: Hemoglobin 6.6 g/dL (13.5-17.5)
[2022-04-17 07:35] LABS: Basophils % (manual) 0 (0.0-2.0); Blast Cells 0; Metamyelocytes % 0; Promyelocytes % 0; Reactive Lymphocytes 0
[2022-04-17] MEDS ORDERED: POTASSIUM CHL 20 Meq TABLET PO ONE (09:00)
[2022-04-17] MEDS ORDERED: FUROSEMIDE 20 MG/2 ML VIAL IV ONE (09:00)
[2022-04-17 09:44] LABS: Band Neutrophils % (manual) 7; Eosinophils % (manual) 4 (0-7); Lymphocytes % (manual) 13 (10.0-50.0); Monocytes % (manual) 14 (0-12); Myelocytes % 1
[2022-04-17] MEDS ORDERED: SPIRONOLACTONE 25 MG TAB PO SCH (10:00)
[2022-04-17] MEDS: THIAMINE HCL 100 MG TAB PO SCH (12:02)
[2022-04-17] MEDS: FOLIC ACID 1 MG TAB PO SCH (12:02)
[2022-04-17] MEDS ORDERED: PHYTONADIONE (VIT K)10 MG/ML 1ML VIAL IV ONE (12:45)
[2022-04-17] MEDS ORDERED: phytonadione 10 MG in SODIUM CHL 0.9% 50 ML IV ONE (13:15)
[2022-04-17] MEDS: ALBUMIN 25% 100 ML IV SCH ×2 (16:24→21:56)
[2022-04-17] MEDS ORDERED: SPIR50TA5 PO (19:23)
[2022-04-17] MEDS ORDERED: FOLI1TAB6 PO (19:23)
[2022-04-17] MEDS: PANTOPRAZOLE 40 MG TAB PO SCH (21:56)
[2022-04-18] MEDS: ALBUMIN 25% 100 ML IV SCH (05:12)
[2022-04-18 05:41] VITALS: BP 94/55
[2022-04-18 06:31] LABS: Hematocrit 27.2 % (41.0-53.0); Hemoglobin 9.4 g/dL (13.5-17.5); Mean Corpuscular Hemoglobin 36.8 pg (28.0-32.0); Mean Corpuscular Hgb Conc. 34.6 g/dL (32.0-36.0); Mean Corpuscular Volume 106.3 fL (80.0-100.0); Red Blood Cells 2.55 10^6/uL (4.5-5.90); White Blood Cell 9.1 10^3/uL (4.4-10.8)
[2022-04-18 06:47] LABS: Potassium 3.5 mmol/L (3.5-5.1)
[2022-04-18 06:48] LABS: INR 2.17 (0.9-1.15)
[2022-04-18 06:52] LABS: Albumin 2.7 g/dL (3.4-5.0); BUN/Creatinine Ratio 21.2; Calcium 8.4 mg/dL (8.5-10.1)
[2022-04-18 07:06] LABS: Bilirubin, Total 18.8 mg/dL (0.2-1.0); Total Protein 5.5 g/dL (6.4-8.2)
[2022-04-18 08:52] LABS: Red Cell Distribution Width 29.3 % (11.8-14.3)
[2022-04-18 08:53] LABS: Basophils % (manual) 0 (0.0-2.0); Blast Cells 0; Metamyelocytes % 0; Promyelocytes % 0; Reactive Lymphocytes 0
[2022-04-18 09:11] VITALS: BP 103/70
[2022-04-18] MEDS ORDERED: PHYTONADIONE (VIT K)10 MG/ML 1ML VIAL SUBCUT SCH (10:00)
[2022-04-18] MEDS ORDERED: SPIRONOLACTONE 25 MG TAB PO SCH (10:00)
[2022-04-18] MEDS: PANTOPRAZOLE 40 MG TAB PO SCH (10:32)
[2022-04-18] MEDS: FOLIC ACID 1 MG TAB PO SCH (10:33)
[2022-04-18] MEDS: THIAMINE HCL 100 MG TAB PO SCH (10:33)
[2022-04-18] MEDS ORDERED: FUROSEMIDE 20 MG TAB PO SCH (11:15)
[2022-04-18] MEDS ORDERED: PHYTONADIONE (VIT K)10 MG/ML 1ML VIAL IV ONE (11:15)
[2022-04-18 12:49] VITALS: BP 96/59
[2022-04-18] MEDS ORDERED: FURO1TAB31 PO (13:15)
[2022-04-18] MEDS ORDERED: SPIR50TA5 PO (13:15)
[2022-04-18] MEDS ORDERED: PANT40T PO (13:15)
[2022-04-18] MEDS ORDERED: SUCR1TAB PO (13:15)
[2022-04-18 14:19] LABS: Band Neutrophils % (manual) 11; Eosinophils % (manual) 2 (0-7); Lymphocytes % (manual) 20 (10.0-50.0); Monocytes % (manual) 8 (0-12); Myelocytes % 1
[2022-04-18 14:22] VITALS: BP 109/64
[2022-04-19] MEDS ORDERED: SPIRONOLACTONE 25 MG TAB PO SCH (10:00)
== END 2022-04-18 13:00 | disposition home or self-care (01) | DRG 280 ==
LOC: ER 10:50 → OVERFLOW 16:49 → WEST WING 04-17 16:57
PROVIDERS: ADMIT Nurse Practitioner Acute Care; ATTEND Hospitalist
PROC: 30233N1 Transfusion of Nonautologous Red Blood Cells into Peripheral Vein, Percutaneous Approach (ICD-10-PCS; principal; 2022-04-16)
DX: K70.31 Alcoholic cirrhosis of liver with ascites (principal); E43 Unspecified severe protein-calorie malnutrition; D61.818 Other pancytopenia; D68.4 Acquired coagulation factor deficiency; J98.11 Atelectasis; F10.20 Alcohol dependence, uncomplicated; D75.89 Other specified diseases of blood and blood-forming organs; Z20.822 Contact with and (suspected) exposure to COVID-19; I10 Essential (primary) hypertension; Z88.8 Allergy status to other drugs, medicaments and biological substances; Z87.11 Personal history of peptic ulcer disease; Z68.22 Body mass index [BMI] 22.0-22.9, adult
CPT/HCPCS: 36415; 36430; 49083; 74176; 76700; 76942; 80053; 81001; 82140; 84484; 85007; 85027; 85610; 85730; 86850; 86900; 86901; 86920; 87205; 87426; 89051; 96374; G0378; J3430; P9047

== ENCOUNTER 2022-04-26 16:09 | Inpatient (IN) | payer MEDICAID ==
[~2022-04-26] VITALS: Ht 165.1 cm; Wt 70.5 kg
[~2022-04-26 16:09] MED LIST changes: +FOLI1TAB6 PO; -POTA-220 PO; +SPIR50TA5 PO
[2022-04-26] MEDS ORDERED: LACTULOSE 20Gm/30ML SOLN PO ONE (17:00)
[2022-04-26 17:56] LABS: Albumin 2.7 g/dL (3.4-5.0); Anion Gap 10 (5-15); Blood Alcohol < 3.0 mg/dL (0-5); Blood Urea Nitrogen 46 mg/dL (7-18); Calcium 8.7 mg/dL (8.5-10.1); Carbon Dioxide 23 mmol/L (21-32); Chloride 105 mmol/L (98-107); Glucose 96 mg/dL (74-106); Lipase 99 U/L (73-393); Potassium 4.5 mmol/L (3.5-5.1); Sodium 138 mmol/L (136-145)
[2022-04-26 17:59] LABS: Alanine Aminotransferase 22 U/L (16-61); Alkaline Phosphatase 97 U/L (45-117); Aspartate Aminotransferase 77 U/L (15-37); BUN/Creatinine Ratio 22.7; Bilirubin, Total 14.4 mg/dL (0.2-1.0); GFR African American 49 mL/min; GFR Non-African American 40 mL/min; Total Protein 5.9 g/dL (6.4-8.2)
[2022-04-26 18:40] LABS: INR 1.67 (0.9-1.15)
[2022-04-26 19:16] LABS: Hematocrit 22.3 % (41.0-53.0); Hemoglobin 7.9 g/dL (13.5-17.5); Mean Corpuscular Hemoglobin 37.5 pg (28.0-32.0); Mean Corpuscular Hgb Conc. 35.4 g/dL (32.0-36.0); Mean Corpuscular Volume 106.1 fL (80.0-100.0); White Blood Cell 5.2 10^3/uL (4.4-10.8)
[2022-04-26 19:30] LABS: Basophils % (manual) 0 (0.0-2.0); Blast Cells 0; Eosinophils % (manual) 0 (0-7); Metamyelocytes % 0; Myelocytes % 0; Promyelocytes % 0; Reactive Lymphocytes 0
[2022-04-26 19:54] LABS: Band Neutrophils % (manual) 2
[2022-04-26 19:55] LABS: Lymphocytes % (manual) 20 (10.0-50.0); Monocytes % (manual) 10 (0-12)
[2022-04-26] MEDS: ONDANSETRON HCL 4 MG/2 ML VIAL IV PRN (22:19)
[2022-04-26] MEDS: PANTOPRAZOLE 40 MG TAB PO SCH (22:20)
[2022-04-26] MEDS ORDERED: IBUPROFEN 600 MG TAB PO ONE (22:30)
[2022-04-26 23:29] LABS: Alcohol, Urine < 3.0 mg/dL (0-10); Amphetamine Screen, Urine NEGATIVE (NEGATIVE); Barbiturate Scree,Urine NEGATIVE (NEGATIVE); Benzodiazephine Screen, Urine NEGATIVE (NEGATIVE); Cannabinoid Screen, Urine NEGATIVE (NEGATIVE); Cocaine Screen, Urine NEGATIVE (NEGATIVE); Opiate Scree,Urine NEGATIVE (NEGATIVE); Phencyclidine Screen, Urine NEGATIVE (NEGATIVE)
[2022-04-27] VITALS (7 sets, daily range): BP systolic 94–113; BP diastolic 59–64
[2022-04-27] MEDS: chlordiazePOXIDE HCL 25 MG CAP PO SCH ×3 (00:36→13:10)
[2022-04-27 06:10] LABS: Mean Corpuscular Hemoglobin 36.6 pg (28.0-32.0); Red Blood Cells 1.87 10^6/uL (4.5-5.90)
[2022-04-27 06:13] LABS: Hematocrit 19.4 % (41.0-53.0); Mean Corpuscular Hgb Conc. 35.1 g/dL (32.0-36.0); Mean Corpuscular Volume 104.1 fL (80.0-100.0); White Blood Cell 4.2 10^3/uL (4.4-10.8)
[2022-04-27 06:21] LABS: Hemoglobin 6.8 g/dL (13.5-17.5)
[2022-04-27 06:23] LABS: Albumin 2.4 g/dL (3.4-5.0); Basophils % (manual) 0 (0.0-2.0); Blast Cells 0; Calcium 8.7 mg/dL (8.5-10.1); Potassium 3.8 mmol/L (3.5-5.1); Promyelocytes % 0; Reactive Lymphocytes 0
[2022-04-27 06:28] LABS: BUN/Creatinine Ratio 24.2; Bilirubin, Total 13.2 mg/dL (0.2-1.0); Total Protein 5.4 g/dL (6.4-8.2)
[2022-04-27 09:29] LABS: Band Neutrophils % (manual) 24; Lymphocytes % (manual) 11 (10.0-50.0)
[2022-04-27 09:30] LABS: Eosinophils % (manual) 3 (0-7); Metamyelocytes % 1; Monocytes % (manual) 13 (0-12); Myelocytes % 1
[2022-04-27] MEDS ORDERED: LACTULOSE 20Gm/30ML SOLN PO SCH (10:00)
[2022-04-27] MEDS ORDERED: SPIRONOLACTONE 25 MG TAB PO SCH (10:00)
[2022-04-27] MEDS: PANTOPRAZOLE 40 MG TAB PO SCH (10:57)
[2022-04-27] MEDS ORDERED: FOLIC ACID 1 MG, MULTIPLE VITAMIN 10 ML, MAGNESIUM SULF SDV 50% 8 MEQ, THIAMINE INJ 100... INJ SCH ×5 (12:00)
[2022-04-27 12:24] LABS: Hemoglobin 8.2 g/dL (13.5-17.5)
[2022-04-27 12:26] LABS: Hematocrit 23.4 % (41.0-53.0)
[2022-04-27] MEDS ORDERED: SODIUM CHLORIDE 0.9% 1,000 ML IV ONE (14:30)
[2022-04-27] MEDS ORDERED: PANTOPRAZOLE 80 MG in SODIUM CHL 0.9% 100 ML IV ONE (14:30)
[2022-04-27] MEDS ORDERED: THIAMINE 100mg/ml INJ (200mg/2ml VIAL) IV ONE (14:30)
[2022-04-27] MEDS ORDERED: OCTREOTIDE ACETATE 100 MCG in SODIUM CHL 0.9% 50 ML IV ONE (14:30)
[2022-04-27] MEDS: LACTULOSE 20Gm/30ML SOLN PO SCH ×3 (15:50→21:06)
[2022-04-27 17:38] LABS: % Iron Saturation 96.3 % (20-55)
[2022-04-27] MEDS: OCTREOTIDE ACETATE 500 MCG in SODIUM CHL 0.9% 99 ML IV SCH (17:50)
[2022-04-27] MEDS: PANTOPRAZOLE 40mg/50ML NS AE 50 ML IV SCH ×2 (18:50→19:30)
[2022-04-27] MEDS: LORazepam 0.5 MG TAB PO PRN (23:17)
[2022-04-28] MEDS: PANTOPRAZOLE 40mg/50ML NS AE 50 ML IV SCH ×4 (00:15→20:18)
[2022-04-28] MEDS: LORazepam 0.5 MG TAB PO PRN (04:43)
[2022-04-28] MEDS: OCTREOTIDE ACETATE 500 MCG in SODIUM CHL 0.9% 99 ML IV SCH ×3 (04:44→20:19)
[2022-04-28 05:00] VITALS: BP 117/77
[2022-04-28] MEDS: LACTULOSE 20Gm/30ML SOLN PO SCH ×4 (05:02→23:55)
[2022-04-28 09:05] VITALS: BP 117/76
[2022-04-28] MEDS: THIAMINE 100mg/ml INJ (200mg/2ml VIAL) IV SCH (09:31)
[2022-04-28] MEDS: MULTIPLE VITAMIN TAB PO SCH (09:32)
[2022-04-28 13:00] VITALS: BP 108/79
[2022-04-28 13:27] LABS: Albumin 2.4 g/dL (3.4-5.0); Calcium 8.8 mg/dL (8.5-10.1); Potassium 4.2 mmol/L (3.5-5.1)
[2022-04-28 13:30] LABS: BUN/Creatinine Ratio 26.2; Bilirubin, Total 15.9 mg/dL (0.2-1.0); Total Protein 5.9 g/dL (6.4-8.2)
[2022-04-28 14:34] LABS: Eosinophils # (auto) 0.1 10 ^3/uL (0-0.8); Hemoglobin 9.5 g/dL (13.5-17.5)
[2022-04-28 14:36] LABS: Basophils # (auto) 0.2 10 ^3/uL (0-0.2); Basophils % (auto) 2.4 % (0.0-2.0); Eosinophils % (auto) 1.2 % (0.0-7.0); Hematocrit 26.1 % (41.0-53.0); Lymphocytes # (auto) 1.2 10 ^3/uL (0.4-5.4); Lymphocytes % (auto) 19.2 % (10.0-50.0); Mean Corpuscular Hgb Conc. 36.2 g/dL (32.0-36.0); Monocytes # (auto) 1.2 10 ^3/uL (0-1.3); Neutrophils # (auto) 3.8 10 ^3/uL (1.6-8.6); Neutrophils % (auto) 58.7 % (37.0-80.0); Nucleated Red Blood Cells % 0.8 %; Red Blood Cells 2.56 10^6/uL (4.5-5.90); White Blood Cell 6.4 10^3/uL (4.4-10.8)
[2022-04-28 14:49] LABS: Monocytes % (auto) 18.5 % (0.0-12.0)
[2022-04-28 14:50] LABS: Red Cell Distribution Width 26.3 % (11.8-14.3)
[2022-04-28 16:42] VITALS: BP 121/87
[2022-04-28 20:00] VITALS: BP 116/73
[2022-04-28 22:00] VITALS: BP 116/73
[2022-04-29] MEDS: PANTOPRAZOLE 40mg/50ML NS AE 50 ML IV SCH ×5 (01:47→23:54)
[2022-04-29] MEDS: LACTULOSE 20Gm/30ML SOLN PO SCH ×6 (03:30→23:43)
[2022-04-29 05:00] VITALS: BP 114/71
[2022-04-29 06:27] LABS: Basophils # (auto) 0.1 10 ^3/uL (0-0.2); Hematocrit 22.2 % (41.0-53.0); Red Blood Cells 2.15 10^6/uL (4.5-5.90)
[2022-04-29 06:30] LABS: Albumin 2.2 g/dL (3.4-5.0); Basophils % (auto) 1.4 % (0.0-2.0); Calcium 9.2 mg/dL (8.5-10.1); Eosinophils # (auto) 0 10 ^3/uL (0-0.8); Eosinophils % (auto) 0.4 % (0.0-7.0); Hemoglobin 7.8 g/dL (13.5-17.5); Lymphocytes # (auto) 0.9 10 ^3/uL (0.4-5.4); Lymphocytes % (auto) 17.2 % (10.0-50.0); Mean Corpuscular Hemoglobin 36.5 pg (28.0-32.0); Mean Corpuscular Hgb Conc. 35.2 g/dL (32.0-36.0); Mean Corpuscular Volume 103.5 fL (80.0-100.0); Monocytes # (auto) 0.8 10 ^3/uL (0-1.3); Monocytes % (auto) 14.3 % (0.0-12.0); Neutrophils # (auto) 3.7 10 ^3/uL (1.6-8.6); Neutrophils % (auto) 66.7 % (37.0-80.0); Nucleated Red Blood Cells % 0.1 %; Potassium 3.9 mmol/L (3.5-5.1); White Blood Cell 5.5 10^3/uL (4.4-10.8)
[2022-04-29] MEDS: OCTREOTIDE ACETATE 500 MCG in SODIUM CHL 0.9% 99 ML IV SCH ×2 (06:44→17:01)
[2022-04-29 06:59] LABS: Bilirubin, Total 14.9 mg/dL (0.2-1.0); Total Protein 5.8 g/dL (6.4-8.2)
[2022-04-29 07:00] LABS: Red Cell Distribution Width 26.5 % (11.8-14.3)
[2022-04-29 09:00] VITALS: BP 125/78
[2022-04-29] MEDS: MULTIPLE VITAMIN TAB PO SCH (09:55)
[2022-04-29] MEDS: THIAMINE 100mg/ml INJ (200mg/2ml VIAL) IV SCH (09:55)
[2022-04-29 13:00] VITALS: BP 113/76
[2022-04-29] MEDS ORDERED: rifAXIMin 550 MG TAB PO ONE (13:30)
[2022-04-29 13:51] LABS: Hepatitis C Antibody Negative (Negative)
[2022-04-29 17:00] VITALS: BP 111/64
[2022-04-29] MEDS: rifAXIMin 550 MG TAB PO SCH (21:22)
[2022-04-29 22:00] VITALS: BP 111/67
[2022-04-30] MEDS: PANTOPRAZOLE 40mg/50ML NS AE 50 ML IV SCH ×5 (02:30→20:21)
[2022-04-30] MEDS: LACTULOSE 20Gm/30ML SOLN PO SCH ×4 (03:30→22:29)
[2022-04-30] MEDS: OCTREOTIDE ACETATE 500 MCG in SODIUM CHL 0.9% 99 ML IV SCH ×3 (03:50→20:21)
[2022-04-30 05:00] VITALS: BP 103/68
[2022-04-30 06:37] LABS: Basophils # (auto) 0 10 ^3/uL (0-0.2); Eosinophils # (auto) 0.1 10 ^3/uL (0-0.8); Monocytes # (auto) 0.5 10 ^3/uL (0-1.3); White Blood Cell 4.5 10^3/uL (4.4-10.8)
[2022-04-30 06:39] LABS: Eosinophils % (auto) 1.7 % (0.0-7.0); Hematocrit 20.9 % (41.0-53.0); Hemoglobin 7.2 g/dL (13.5-17.5); Lymphocytes # (auto) 1.5 10 ^3/uL (0.4-5.4); Lymphocytes % (auto) 33.3 % (10.0-50.0); Mean Corpuscular Hemoglobin 35.7 pg (28.0-32.0); Mean Corpuscular Hgb Conc. 34.4 g/dL (32.0-36.0); Mean Corpuscular Volume 103.9 fL (80.0-100.0); Monocytes % (auto) 11.6 % (0.0-12.0); Neutrophils # (auto) 2.4 10 ^3/uL (1.6-8.6); Neutrophils % (auto) 52.4 % (37.0-80.0); Nucleated Red Blood Cells % 0.5 %; Red Blood Cells 2.01 10^6/uL (4.5-5.90)
[2022-04-30 06:44] LABS: Red Cell Distribution Width 26.4 % (11.8-14.3)
[2022-04-30 07:07] LABS: Potassium 3.4 mmol/L (3.5-5.1)
[2022-04-30 07:11] LABS: BUN/Creatinine Ratio 12.5; Calcium 8.7 mg/dL (8.5-10.1)
[2022-04-30 07:14] LABS: Bilirubin, Total 12.1 mg/dL (0.2-1.0); Total Protein 5.2 g/dL (6.4-8.2)
[2022-04-30 09:00] VITALS: BP 109/64
[2022-04-30] MEDS: ENOXAPARIN SOD 40 MG/0.4 ML SYRINGE SC SCH ×2 (09:11→13:00)
[2022-04-30] MEDS ORDERED: POTASSIUM EFFERVESENT TAB 25 MEQ GT ONE (09:30)
[2022-04-30] MEDS: THIAMINE 100mg/ml INJ (200mg/2ml VIAL) IV SCH (09:33)
[2022-04-30] MEDS: rifAXIMin 550 MG TAB PO SCH ×2 (09:34→22:29)
[2022-04-30] MEDS: MULTIPLE VITAMIN TAB PO SCH (09:34)
[2022-04-30] MEDS ORDERED: POTASSIUM EFFERVESENT TAB 25 MEQ PO ONE (09:45)
[2022-04-30 13:00] VITALS: BP 101/62
[2022-04-30 17:00] VITALS: BP 109/61
[2022-04-30 22:00] VITALS: BP 97/56
[2022-05-01] MEDS ORDERED: PANTOPRAZOLE 40mg/50ML NS AE 50 ML IV ONE (02:03)
[2022-05-01] MEDS: PANTOPRAZOLE 40mg/50ML NS AE 50 ML IV SCH ×5 (02:43→23:54)
[2022-05-01 05:00] VITALS: BP 91/48
[2022-05-01] MEDS: LACTULOSE 20Gm/30ML SOLN PO SCH ×2 (05:01→23:54)
[2022-05-01 06:25] LABS: Eosinophils # (auto) 0.1 10 ^3/uL (0-0.8); Monocytes # (auto) 0.4 10 ^3/uL (0-1.3)
[2022-05-01 06:38] LABS: Basophils # (auto) 0.1 10 ^3/uL (0-0.2); Basophils % (auto) 1.3 % (0.0-2.0); Eosinophils % (auto) 2.1 % (0.0-7.0); Hematocrit 21.7 % (41.0-53.0); Hemoglobin 7.3 g/dL (13.5-17.5); Lymphocytes % (auto) 19.2 % (10.0-50.0); Mean Corpuscular Hemoglobin 34.7 pg (28.0-32.0); Mean Corpuscular Hgb Conc. 33.7 g/dL (32.0-36.0); Mean Corpuscular Volume 103.1 fL (80.0-100.0); Monocytes % (auto) 7.7 % (0.0-12.0); Neutrophils # (auto) 3.6 10 ^3/uL (1.6-8.6); Neutrophils % (auto) 69.7 % (37.0-80.0); Nucleated Red Blood Cells % 0.5 %; White Blood Cell 5.1 10^3/uL (4.4-10.8)
[2022-05-01 06:39] LABS: Red Cell Distribution Width 25.7 % (11.8-14.3)
[2022-05-01 06:47] LABS: Albumin 2.2 g/dL (3.4-5.0); BUN/Creatinine Ratio 11.8; Calcium 9.1 mg/dL (8.5-10.1); Potassium 4.1 mmol/L (3.5-5.1)
[2022-05-01 06:49] LABS: Bilirubin, Total 14.7 mg/dL (0.2-1.0); Total Protein 5.6 g/dL (6.4-8.2)
[2022-05-01] MEDS: OCTREOTIDE ACETATE 500 MCG in SODIUM CHL 0.9% 99 ML IV SCH ×2 (07:33→18:53)
[2022-05-01] MEDS: ENOXAPARIN SOD 40 MG/0.4 ML SYRINGE SC SCH (08:44)
[2022-05-01] MEDS: MULTIPLE VITAMIN TAB PO SCH (08:44)
[2022-05-01] MEDS: THIAMINE 100mg/ml INJ (200mg/2ml VIAL) IV SCH (08:44)
[2022-05-01] MEDS: rifAXIMin 550 MG TAB PO SCH ×2 (08:44→23:54)
[2022-05-01 09:00] VITALS: BP 109/65
[2022-05-01 13:00] VITALS: BP 97/53
[2022-05-01 17:06] VITALS: BP 89/47
[2022-05-01 17:18] VITALS: BP 91/48
[2022-05-01 22:00] VITALS: BP 99/59
[2022-05-02] VITALS (11 sets, daily range): BP systolic 87–104; BP diastolic 52–61
[2022-05-02] MEDS: PANTOPRAZOLE 40mg/50ML NS AE 50 ML IV SCH ×4 (04:48→17:32)
[2022-05-02] MEDS: OCTREOTIDE ACETATE 500 MCG in SODIUM CHL 0.9% 99 ML IV SCH ×2 (04:48→14:30)
[2022-05-02 06:19] LABS: White Blood Cell 3.4 10^3/uL (4.4-10.8)
[2022-05-02 06:23] LABS: Hematocrit 19.2 % (41.0-53.0); Mean Corpuscular Hemoglobin 34.2 pg (28.0-32.0); Mean Corpuscular Hgb Conc. 33.5 g/dL (32.0-36.0); Mean Corpuscular Volume 102.1 fL (80.0-100.0); Red Blood Cells 1.89 10^6/uL (4.5-5.90)
[2022-05-02 06:40] LABS: Red Cell Distribution Width 25.3 % (11.8-14.3)
[2022-05-02 06:41] LABS: Hemoglobin 6.5 g/dL (13.5-17.5)
[2022-05-02 06:43] LABS: Basophils % (manual) 0 (0.0-2.0); Blast Cells 0; Metamyelocytes % 0; Myelocytes % 0; Promyelocytes % 0; Reactive Lymphocytes 0
[2022-05-02 06:48] LABS: Potassium 3.9 mmol/L (3.5-5.1)
[2022-05-02 07:05] LABS: Albumin 2.2 g/dL (3.4-5.0); BUN/Creatinine Ratio 12.7; Calcium 8.5 mg/dL (8.5-10.1)
[2022-05-02 07:12] LABS: Bilirubin, Total 13.3 mg/dL (0.2-1.0); Total Protein 5.6 g/dL (6.4-8.2)
[2022-05-02 08:21] LABS: Band Neutrophils % (manual) 8; Eosinophils % (manual) 3 (0-7); Lymphocytes % (manual) 20 (10.0-50.0); Monocytes % (manual) 9 (0-12)
[2022-05-02] MEDS: LACTULOSE 20Gm/30ML SOLN PO SCH ×2 (08:42→21:53)
[2022-05-02] MEDS: MULTIPLE VITAMIN TAB PO SCH (08:42)
[2022-05-02] MEDS: rifAXIMin 550 MG TAB PO SCH ×2 (08:42→21:53)
[2022-05-02] MEDS: ENOXAPARIN SOD 40 MG/0.4 ML SYRINGE SC SCH (08:42)
[2022-05-02] MEDS: THIAMINE 100mg/ml INJ (200mg/2ml VIAL) IV SCH (08:42)
[2022-05-02 10:31] LABS: Hematocrit 20.4 % (41.0-53.0); Mean Corpuscular Hemoglobin 34.5 pg (28.0-32.0); Mean Corpuscular Hgb Conc. 33.7 g/dL (32.0-36.0); Mean Corpuscular Volume 102.6 fL (80.0-100.0); Red Blood Cells 1.99 10^6/uL (4.5-5.90); White Blood Cell 3.8 10^3/uL (4.4-10.8)
[2022-05-02 10:45] LABS: Red Cell Distribution Width 25.4 % (11.8-14.3)
[2022-05-02 10:50] LABS: Hemoglobin 6.9 g/dL (13.5-17.5)
[2022-05-02 10:51] LABS: Basophils % (manual) 0 (0.0-2.0); Blast Cells 0; Metamyelocytes % 0; Myelocytes % 0; Promyelocytes % 0; Reactive Lymphocytes 0
[2022-05-02 12:16] LABS: Band Neutrophils % (manual) 8; Lymphocytes % (manual) 19 (10.0-50.0); Monocytes % (manual) 9 (0-12)
[2022-05-02 12:17] LABS: Eosinophils % (manual) 3 (0-7)
[2022-05-02 17:53] LABS: Hematocrit 23.4 % (41.0-53.0)
[2022-05-03] VITALS (7 sets, daily range): BP systolic 91–110; BP diastolic 47–66
[2022-05-03] MEDS: OCTREOTIDE ACETATE 500 MCG in SODIUM CHL 0.9% 99 ML IV SCH ×4 (00:43→23:37)
[2022-05-03] MEDS: PANTOPRAZOLE 40mg/50ML NS AE 50 ML IV SCH ×5 (00:44→20:49)
[2022-05-03 07:30] LABS: Hemoglobin 7.2 g/dL (13.5-17.5); Red Blood Cells 2.12 10^6/uL (4.5-5.90)
[2022-05-03 07:33] LABS: Hematocrit 21.4 % (41.0-53.0); Mean Corpuscular Hemoglobin 34.1 pg (28.0-32.0); Mean Corpuscular Hgb Conc. 33.9 g/dL (32.0-36.0); Mean Corpuscular Volume 100.6 fL (80.0-100.0); White Blood Cell 3.9 10^3/uL (4.4-10.8)
[2022-05-03 07:44] LABS: BUN/Creatinine Ratio 10.7; Calcium 8.9 mg/dL (8.5-10.1); Potassium 4.4 mmol/L (3.5-5.1)
[2022-05-03 07:46] LABS: Bilirubin, Total 12.1 mg/dL (0.2-1.0); Total Protein 5.5 g/dL (6.4-8.2)
[2022-05-03 08:10] LABS: Basophils % (manual) 0 (0.0-2.0); Blast Cells 0; Myelocytes % 0; Promyelocytes % 0; Red Cell Distribution Width 23.9 % (11.8-14.3)
[2022-05-03 08:57] LABS: Band Neutrophils % (manual) 11; Eosinophils % (manual) 4 (0-7); Lymphocytes % (manual) 8 (10.0-50.0); Metamyelocytes % 2; Monocytes % (manual) 7 (0-12); Reactive Lymphocytes 1
[2022-05-03 09:00] LABS: INR 2.27 (0.9-1.15); Partial Thromboplastin Time 47.6 sec (24.6-33.4)
[2022-05-03] MEDS: rifAXIMin 550 MG TAB PO SCH ×2 (10:04→21:44)
[2022-05-03] MEDS: LACTULOSE 20Gm/30ML SOLN PO SCH ×2 (10:04→21:44)
[2022-05-03] MEDS: MULTIPLE VITAMIN TAB PO SCH (10:05)
[2022-05-03] MEDS: THIAMINE 100mg/ml INJ (200mg/2ml VIAL) IV SCH (10:05)
[2022-05-03 11:20] LABS: Urine Bacteria FEW /hpf (None Seen); Urine Blood 3+ /uL (Negative); Urine Hyaline Cast FEW /lpf (0 - 2); Urine Mucus FEW (None Seen); Urine Specific Gravity 1.022 (1.001-1.035); Urine WBC 8 /hpf (0 - 3)
[2022-05-03] MEDS ORDERED: PHYTONADIONE (VIT K)10 MG/ML 1ML VIAL SUBCUT ONE (11:30)
[2022-05-04] VITALS (8 sets, daily range): BP systolic 92–108; BP diastolic 53–68
[2022-05-04] MEDS: OCTREOTIDE ACETATE 500 MCG in SODIUM CHL 0.9% 99 ML IV SCH (01:27)
[2022-05-04] MEDS: PANTOPRAZOLE 40mg/50ML NS AE 50 ML IV SCH ×5 (01:58→23:30)
[2022-05-04 05:44] LABS: Eosinophils # (auto) 0.1 10 ^3/uL (0-0.8); Hematocrit 22.6 % (41.0-53.0); Lymphocytes # (auto) 0.6 10 ^3/uL (0.4-5.4); Mean Corpuscular Volume 103.2 fL (80.0-100.0); Monocytes # (auto) 0.3 10 ^3/uL (0-1.3); Red Blood Cells 2.19 10^6/uL (4.5-5.90)
[2022-05-04 05:47] LABS: INR 2.36 (0.9-1.15); Partial Thromboplastin Time 48.7 sec (24.6-33.4)
[2022-05-04 05:48] LABS: BUN/Creatinine Ratio 10.5; Calcium 8.3 mg/dL (8.5-10.1); Potassium 4.1 mmol/L (3.5-5.1)
[2022-05-04 05:51] LABS: Basophils # (auto) 0.1 10 ^3/uL (0-0.2); Basophils % (auto) 1.3 % (0.0-2.0); Bilirubin, Total 11.6 mg/dL (0.2-1.0); Eosinophils % (auto) 2.8 % (0.0-7.0); Hemoglobin 7.6 g/dL (13.5-17.5); Lymphocytes % (auto) 13.9 % (10.0-50.0); Mean Corpuscular Hemoglobin 34.5 pg (28.0-32.0); Mean Corpuscular Hgb Conc. 33.5 g/dL (32.0-36.0); Neutrophils # (auto) 3.3 10 ^3/uL (1.6-8.6); Nucleated Red Blood Cells % 0.8 %; Total Protein 5.5 g/dL (6.4-8.2); White Blood Cell 4.4 10^3/uL (4.4-10.8)
[2022-05-04 05:53] LABS: Red Cell Distribution Width 25.4 % (11.8-14.3)
[2022-05-04] MEDS: THIAMINE 100mg/ml INJ (200mg/2ml VIAL) IV SCH (09:08)
[2022-05-04] MEDS: rifAXIMin 550 MG TAB PO SCH ×2 (09:09→22:33)
[2022-05-04] MEDS: LACTULOSE 20Gm/30ML SOLN PO SCH ×2 (09:09→22:33)
[2022-05-04] MEDS: MULTIPLE VITAMIN TAB PO SCH (09:09)
[2022-05-04] MEDS: FUROSEMIDE 20 MG TAB PO SCH (13:56)
[2022-05-04] MEDS: SPIRONOLACTONE 25 MG TAB PO SCH (14:04)
[2022-05-05] VITALS (11 sets, daily range): BP systolic 93–123; BP diastolic 53–82
[2022-05-05] MEDS: OCTREOTIDE ACETATE 500 MCG in SODIUM CHL 0.9% 99 ML IV SCH ×2 (02:30→12:44)
[2022-05-05] MEDS: PANTOPRAZOLE 40mg/50ML NS AE 50 ML IV SCH ×3 (06:10→12:44)
[2022-05-05 06:45] LABS: INR 1.92 (0.9-1.15); Partial Thromboplastin Time 52.6 sec (24.6-33.4)
[2022-05-05 06:55] LABS: Basophils # (auto) 0 10 ^3/uL (0-0.2); Eosinophils # (auto) 0.1 10 ^3/uL (0-0.8); Lymphocytes # (auto) 0.6 10 ^3/uL (0.4-5.4); Monocytes # (auto) 0.4 10 ^3/uL (0-1.3); Monocytes % (auto) 8.2 % (0.0-12.0); Neutrophils # (auto) 3.4 10 ^3/uL (1.6-8.6)
[2022-05-05 06:57] LABS: Basophils % (auto) 0.9 % (0.0-2.0); Eosinophils % (auto) 2.4 % (0.0-7.0); Hematocrit 21.7 % (41.0-53.0); Hemoglobin 7.3 g/dL (13.5-17.5); Lymphocytes % (auto) 12.6 % (10.0-50.0); Mean Corpuscular Hemoglobin 35.3 pg (28.0-32.0); Mean Corpuscular Hgb Conc. 33.6 g/dL (32.0-36.0); Mean Corpuscular Volume 105.2 fL (80.0-100.0); Neutrophils % (auto) 75.9 % (37.0-80.0); Nucleated Red Blood Cells % 0.3 %; Red Blood Cells 2.07 10^6/uL (4.5-5.90); White Blood Cell 4.4 10^3/uL (4.4-10.8)
[2022-05-05 07:16] LABS: Red Cell Distribution Width 27.5 % (11.8-14.3)
[2022-05-05] MEDS: SPIRONOLACTONE 25 MG TAB PO SCH (09:25)
[2022-05-05] MEDS: LACTULOSE 20Gm/30ML SOLN PO SCH ×2 (09:25→22:32)
[2022-05-05] MEDS: FUROSEMIDE 20 MG TAB PO SCH (09:25)
[2022-05-05] MEDS: MULTIPLE VITAMIN TAB PO SCH (09:25)
[2022-05-05] MEDS: THIAMINE 100mg/ml INJ (200mg/2ml VIAL) IV SCH (09:25)
[2022-05-05] MEDS: rifAXIMin 550 MG TAB PO SCH ×2 (09:26→22:33)
[2022-05-05] MEDS ORDERED: SODIUM CHLORIDE LOCK 10 ML ONE (10:24)
[2022-05-05] MEDS ORDERED: LIDOCAINE VISCOUS 2% 15ML UD ONE (10:25)
[2022-05-05] MEDS ORDERED: diphenhdrAMINE HCL 50 MG/1 ML VL ONE (10:25)
[2022-05-05] MEDS ORDERED: MIDAZOLAM HCL 2MG/2ML 2ml VIAL (1mg/ml) ONE (10:25)
[2022-05-05] MEDS ORDERED: fentaNYL CITRATE 100 MCG/2 ML VL ONE (10:25)
[2022-05-05] MEDS ORDERED: PROPOFOL 10 MG/ML 20 ML IV ONE (15:44)
[2022-05-05] MEDS ORDERED: ONDANSETRON HCL 4 MG/2 ML VIAL IV PRN (16:00)
[2022-05-05] MEDS ORDERED: phytonadione 10 MG in SODIUM CHL 0.9% 50 ML IV ONE (16:00)
[2022-05-05] MEDS: PANTOPRAZOLE 40 MG TAB PO SCH (22:32)
[2022-05-05] MEDS: URSODIOL 300 MG CAP PO SCH (22:33)
[2022-05-06 05:00] VITALS: BP 99/68
[2022-05-06 06:43] LABS: Albumin 2.1 g/dL (3.4-5.0); Calcium 8.3 mg/dL (8.5-10.1); Potassium 3.8 mmol/L (3.5-5.1)
[2022-05-06 06:46] LABS: BUN/Creatinine Ratio 12.1; Total Protein 5.6 g/dL (6.4-8.2)
[2022-05-06] MEDS: LACTULOSE 20Gm/30ML SOLN PO SCH ×2 (08:30→21:22)
[2022-05-06] MEDS: THIAMINE 100mg/ml INJ (200mg/2ml VIAL) IV SCH (08:30)
[2022-05-06] MEDS: PANTOPRAZOLE 40 MG TAB PO SCH ×2 (08:31→21:22)
[2022-05-06] MEDS: rifAXIMin 550 MG TAB PO SCH ×2 (08:31→21:23)
[2022-05-06] MEDS: MULTIPLE VITAMIN TAB PO SCH (08:31)
[2022-05-06] MEDS: URSODIOL 300 MG CAP PO SCH ×2 (08:32→21:23)
[2022-05-06] MEDS: FUROSEMIDE 20 MG TAB PO SCH (08:33)
[2022-05-06] MEDS: SPIRONOLACTONE 25 MG TAB PO SCH (08:39)
[2022-05-06 09:00] VITALS: BP 115/57
[2022-05-06 12:35] VITALS: BP 101/64
[2022-05-06 17:00] VITALS: BP 108/70
[2022-05-06 22:00] VITALS: BP 108/69
[2022-05-07 05:00] VITALS: BP 98/55
[2022-05-07 09:23] VITALS: BP 97/63
[2022-05-07] MEDS: rifAXIMin 550 MG TAB PO SCH ×2 (10:52→21:13)
[2022-05-07] MEDS: PANTOPRAZOLE 40 MG TAB PO SCH ×2 (10:52→21:13)
[2022-05-07] MEDS: MULTIPLE VITAMIN TAB PO SCH (10:52)
[2022-05-07] MEDS: SPIRONOLACTONE 25 MG TAB PO SCH (10:52)
[2022-05-07] MEDS: FUROSEMIDE 20 MG TAB PO SCH (10:52)
[2022-05-07] MEDS: THIAMINE 100mg/ml INJ (200mg/2ml VIAL) IV SCH (10:52)
[2022-05-07] MEDS: LACTULOSE 20Gm/30ML SOLN PO SCH ×2 (10:53→21:13)
[2022-05-07] MEDS: URSODIOL 300 MG CAP PO SCH ×2 (11:02→21:13)
[2022-05-07 11:42] LABS: Basophils # (auto) 0 10 ^3/uL (0-0.2); Eosinophils # (auto) 0.1 10 ^3/uL (0-0.8); Lymphocytes # (auto) 0.7 10 ^3/uL (0.4-5.4)
[2022-05-07 11:44] LABS: Basophils % (auto) 0.5 % (0.0-2.0); Eosinophils % (auto) 2.7 % (0.0-7.0); Hematocrit 21.5 % (41.0-53.0); Hemoglobin 7.2 g/dL (13.5-17.5); Lymphocytes % (auto) 15.8 % (10.0-50.0); Mean Corpuscular Hemoglobin 34.9 pg (28.0-32.0); Mean Corpuscular Hgb Conc. 33.2 g/dL (32.0-36.0); Mean Corpuscular Volume 105.1 fL (80.0-100.0); Monocytes # (auto) 0.5 10 ^3/uL (0-1.3); Monocytes % (auto) 10.4 % (0.0-12.0); Neutrophils # (auto) 3.2 10 ^3/uL (1.6-8.6); Neutrophils % (auto) 70.6 % (37.0-80.0); Nucleated Red Blood Cells % 0.3 %; Red Blood Cells 2.05 10^6/uL (4.5-5.90); White Blood Cell 4.5 10^3/uL (4.4-10.8)
[2022-05-07 11:56] LABS: Red Cell Distribution Width 27.8 % (11.8-14.3)
[2022-05-07 13:26] VITALS: BP 108/66
[2022-05-07 17:00] VITALS: BP 103/63
[2022-05-07 22:00] VITALS: BP 106/71
[2022-05-08 05:00] VITALS: BP 100/61
[2022-05-08 09:00] VITALS: BP 107/67
[2022-05-08] MEDS: PANTOPRAZOLE 40 MG TAB PO SCH ×2 (10:28→21:59)
[2022-05-08] MEDS: LACTULOSE 20Gm/30ML SOLN PO SCH ×2 (10:28→21:59)
[2022-05-08] MEDS: rifAXIMin 550 MG TAB PO SCH ×2 (10:28→21:59)
[2022-05-08] MEDS: SPIRONOLACTONE 25 MG TAB PO SCH (10:29)
[2022-05-08] MEDS: FUROSEMIDE 20 MG TAB PO SCH (10:29)
[2022-05-08] MEDS: MULTIPLE VITAMIN TAB PO SCH (10:29)
[2022-05-08] MEDS: predniSONE 20 MG TAB PO SCH (10:29)
[2022-05-08] MEDS: URSODIOL 300 MG CAP PO SCH ×2 (10:30→21:59)
[2022-05-08] MEDS: THIAMINE 100mg/ml INJ (200mg/2ml VIAL) IV SCH (10:30)
[2022-05-08 13:00] VITALS: BP 100/60
[2022-05-08 16:56] VITALS: BP 104/66
[2022-05-08 22:00] VITALS: BP 107/68
[2022-05-09 05:00] VITALS: BP 104/66
[2022-05-09 09:00] VITALS: BP 157/76
[2022-05-09] MEDS: THIAMINE 100mg/ml INJ (200mg/2ml VIAL) IV SCH (09:48)
[2022-05-09] MEDS: rifAXIMin 550 MG TAB PO SCH ×2 (09:48→22:56)
[2022-05-09] MEDS: LACTULOSE 20Gm/30ML SOLN PO SCH ×2 (09:48→22:55)
[2022-05-09] MEDS: URSODIOL 300 MG CAP PO SCH ×2 (09:48→22:55)
[2022-05-09] MEDS: SPIRONOLACTONE 25 MG TAB PO SCH (09:49)
[2022-05-09] MEDS: MULTIPLE VITAMIN TAB PO SCH (09:49)
[2022-05-09] MEDS: PANTOPRAZOLE 40 MG TAB PO SCH ×2 (09:49→22:56)
[2022-05-09] MEDS: predniSONE 20 MG TAB PO SCH (09:49)
[2022-05-09] MEDS: FUROSEMIDE 20 MG TAB PO SCH (09:49)
[2022-05-09 13:00] VITALS: BP 95/51
[2022-05-09 17:00] VITALS: BP 102/63
[2022-05-09] MEDS: diphenhdrAMINE HCL 50 MG/1 ML VL IV PRN (17:16)
[2022-05-09 21:37] VITALS: BP 109/71
[2022-05-10] VITALS (10 sets, daily range): BP systolic 92–108; BP diastolic 55–70
[2022-05-10] MEDS: diphenhdrAMINE HCL 50 MG/1 ML VL IV PRN (00:24)
[2022-05-10 05:34] LABS: INR 2.46 (0.9-1.15)
[2022-05-10 05:45] LABS: BUN/Creatinine Ratio 18.3; Bilirubin, Total 11.4 mg/dL (0.2-1.0); Calcium 8.6 mg/dL (8.5-10.1); Potassium 5.3 mmol/L (3.5-5.1); Total Protein 4.9 g/dL (6.4-8.2)
[2022-05-10 06:28] LABS: Hematocrit 14.8 % (41.0-53.0); Mean Corpuscular Hemoglobin 35.2 pg (28.0-32.0); Mean Corpuscular Hgb Conc. 30.1 g/dL (32.0-36.0); Mean Corpuscular Volume 117.2 fL (80.0-100.0); Red Blood Cells 1.26 10^6/uL (4.5-5.90); White Blood Cell 9.7 10^3/uL (4.4-10.8)
[2022-05-10 06:31] LABS: Red Cell Distribution Width 29.6 % (11.8-14.3)
[2022-05-10 06:32] LABS: Hemoglobin 4.4 g/dL (13.5-17.5)
[2022-05-10 06:35] LABS: Basophils % (manual) 0 (0.0-2.0); Blast Cells 0; Eosinophils % (manual) 0 (0-7); Promyelocytes % 0; Reactive Lymphocytes 0
[2022-05-10 07:34] LABS: Band Neutrophils % (manual) 11; Lymphocytes % (manual) 10 (10.0-50.0); Metamyelocytes % 1; Monocytes % (manual) 6 (0-12); Myelocytes % 2
[2022-05-10] MEDS: PANTOPRAZOLE 40 MG TAB PO SCH (08:45)
[2022-05-10] MEDS: MULTIPLE VITAMIN TAB PO SCH (08:45)
[2022-05-10] MEDS: LACTULOSE 20Gm/30ML SOLN PO SCH ×2 (08:45→21:51)
[2022-05-10] MEDS: predniSONE 20 MG TAB PO SCH (08:45)
[2022-05-10] MEDS: THIAMINE 100mg/ml INJ (200mg/2ml VIAL) IV SCH (08:45)
[2022-05-10] MEDS: FUROSEMIDE 20 MG TAB PO SCH (08:46)
[2022-05-10] MEDS: rifAXIMin 550 MG TAB PO SCH ×2 (08:46→21:50)
[2022-05-10] MEDS: URSODIOL 300 MG CAP PO SCH ×2 (08:46→21:50)
[2022-05-10] MEDS: SPIRONOLACTONE 25 MG TAB PO SCH (09:01)
[2022-05-10] MEDS ORDERED: PANTOPRAZOLE 80 MG in SODIUM CHL 0.9% 100 ML IV ONE (10:15)
[2022-05-10] MEDS ORDERED: cefTRIAXone 1GM/50ML D5W 50 ML IV ONE (10:15)
[2022-05-10] MEDS ORDERED: OCTREOTIDE ACETATE 100 MCG in SODIUM CHL 0.9% 50 ML IV ONE (10:15)
[2022-05-10] MEDS: OCTREOTIDE ACETATE 500 MCG in SODIUM CHL 0.9% 99 ML IV SCH ×2 (13:13→21:51)
[2022-05-10 13:42] LABS: Albumin 2.2 g/dL (3.4-5.0); Calcium 8.7 mg/dL (8.5-10.1); Potassium 4.8 mmol/L (3.5-5.1)
[2022-05-10 13:43] LABS: Hematocrit 21.5 % (41.0-53.0); Mean Corpuscular Hemoglobin 32.5 pg (28.0-32.0); Mean Corpuscular Hgb Conc. 30.6 g/dL (32.0-36.0); Mean Corpuscular Volume 106.3 fL (80.0-100.0); Red Blood Cells 2.02 10^6/uL (4.5-5.90); White Blood Cell 10.4 10^3/uL (4.4-10.8)
[2022-05-10 13:44] LABS: Red Cell Distribution Width 26.5 % (11.8-14.3)
[2022-05-10 13:46] LABS: Hemoglobin 6.6 g/dL (13.5-17.5)
[2022-05-10 13:47] LABS: BUN/Creatinine Ratio 19.6; Band Neutrophils % (manual) 0; Basophils % (manual) 0 (0.0-2.0); Bilirubin, Total 12.5 mg/dL (0.2-1.0); Blast Cells 0; Metamyelocytes % 0; Myelocytes % 0; Promyelocytes % 0; Reactive Lymphocytes 0; Total Protein 5.5 g/dL (6.4-8.2)
[2022-05-10] MEDS: PANTOPRAZOLE 40mg/50ML NS AE 50 ML IV SCH ×3 (15:15→20:15)
[2022-05-10 15:55] LABS: Eosinophils % (manual) 3 (0-7); Lymphocytes % (manual) 13 (10.0-50.0); Monocytes % (manual) 3 (0-12)
[2022-05-11] VITALS (16 sets, daily range): BP systolic 91–120; BP diastolic 51–84
[2022-05-11] MEDS: PANTOPRAZOLE 40mg/50ML NS AE 50 ML IV SCH ×3 (00:19→11:09)
[2022-05-11 06:36] LABS: Albumin 1.8 g/dL (3.4-5.0); BUN/Creatinine Ratio 20.8; Calcium 8.5 mg/dL (8.5-10.1); Potassium 4.9 mmol/L (3.5-5.1)
[2022-05-11 06:37] LABS: Hematocrit 19.8 % (41.0-53.0); Red Blood Cells 1.94 10^6/uL (4.5-5.90)
[2022-05-11 06:38] LABS: Bilirubin, Total 10.4 mg/dL (0.2-1.0); Total Protein 4.6 g/dL (6.4-8.2)
[2022-05-11 06:42] LABS: Mean Corpuscular Hemoglobin 33.6 pg (28.0-32.0); Mean Corpuscular Hgb Conc. 32.9 g/dL (32.0-36.0); White Blood Cell 8.8 10^3/uL (4.4-10.8)
[2022-05-11] MEDS: OCTREOTIDE ACETATE 500 MCG in SODIUM CHL 0.9% 99 ML IV SCH (06:48)
[2022-05-11 07:03] LABS: Red Cell Distribution Width 25.4 % (11.8-14.3)
[2022-05-11 07:05] LABS: Hemoglobin 6.5 g/dL (13.5-17.5)
[2022-05-11 07:07] LABS: Basophils % (manual) 0 (0.0-2.0); Blast Cells 0; Metamyelocytes % 0; Myelocytes % 0; Promyelocytes % 0
[2022-05-11 08:35] LABS: Band Neutrophils % (manual) 7; Eosinophils % (manual) 1 (0-7); Lymphocytes % (manual) 9 (10.0-50.0); Monocytes % (manual) 11 (0-12); Reactive Lymphocytes 3
[2022-05-11 08:56] LABS: INR 2.26 (0.9-1.15); Partial Thromboplastin Time 38.9 sec (24.6-33.4)
[2022-05-11] MEDS: cefTRIAXone 1GM/50ML D5W 50 ML IV SCH (10:06)
[2022-05-11] MEDS: THIAMINE 100mg/ml INJ (200mg/2ml VIAL) IV SCH (10:07)
[2022-05-11] MEDS: MULTIPLE VITAMIN TAB PO SCH (10:07)
[2022-05-11] MEDS: rifAXIMin 550 MG TAB PO SCH ×2 (10:07→21:08)
[2022-05-11] MEDS: LACTULOSE 20Gm/30ML SOLN PO SCH ×2 (10:07→21:08)
[2022-05-11] MEDS: URSODIOL 300 MG CAP PO SCH ×2 (10:07→21:08)
[2022-05-11] MEDS ORDERED: phytonadione 10 MG in SODIUM CHL 0.9% 50 ML IV ONE (10:15)
[2022-05-11] MEDS ORDERED: predniSONE 20 MG TAB PO ONE (13:00)
[2022-05-11] MEDS: PANTOPRAZOLE 40 MG/10 ML VIAL INJ IV SCH (21:08)
[2022-05-12 05:00] VITALS: BP 119/61
[2022-05-12 06:22] LABS: INR 2.05 (0.9-1.15); Partial Thromboplastin Time 41.5 sec (24.6-33.4)
[2022-05-12 06:27] LABS: Mean Corpuscular Hemoglobin 32.8 pg (28.0-32.0)
[2022-05-12 06:30] LABS: Hematocrit 28.1 % (41.0-53.0); Mean Corpuscular Hgb Conc. 31.8 g/dL (32.0-36.0); Mean Corpuscular Volume 103.1 fL (80.0-100.0); Red Blood Cells 2.73 10^6/uL (4.5-5.90); White Blood Cell 7.6 10^3/uL (4.4-10.8)
[2022-05-12 06:31] LABS: Potassium 4.7 mmol/L (3.5-5.1)
[2022-05-12 06:44] LABS: Albumin 2.5 g/dL (3.4-5.0); BUN/Creatinine Ratio 24.1; Bilirubin, Total 14.1 mg/dL (0.2-1.0); Calcium 8.8 mg/dL (8.5-10.1); Total Protein 5.7 g/dL (6.4-8.2)
[2022-05-12 06:52] LABS: Red Cell Distribution Width 25.5 % (11.8-14.3)
[2022-05-12 06:53] LABS: Basophils % (manual) 0 (0.0-2.0); Myelocytes % 0
[2022-05-12 06:54] LABS: Blast Cells 0; Promyelocytes % 0
[2022-05-12 08:31] LABS: Band Neutrophils % (manual) 6; Eosinophils % (manual) 1 (0-7); Lymphocytes % (manual) 7 (10.0-50.0); Metamyelocytes % 1; Monocytes % (manual) 6 (0-12); Reactive Lymphocytes 1
[2022-05-12 08:50] VITALS: BP 116/73
[2022-05-12] MEDS: PANTOPRAZOLE 40 MG/10 ML VIAL INJ IV SCH ×2 (09:03→21:15)
[2022-05-12] MEDS: LACTULOSE 20Gm/30ML SOLN PO SCH ×2 (09:03→21:15)
[2022-05-12] MEDS: cefTRIAXone 1GM/50ML D5W 50 ML IV SCH (09:03)
[2022-05-12] MEDS: THIAMINE 100mg/ml INJ (200mg/2ml VIAL) IV SCH (09:03)
[2022-05-12] MEDS: predniSONE 20 MG TAB PO SCH (09:04)
[2022-05-12] MEDS: rifAXIMin 550 MG TAB PO SCH ×2 (09:04→21:15)
[2022-05-12] MEDS: MULTIPLE VITAMIN TAB PO SCH (09:04)
[2022-05-12] MEDS: URSODIOL 300 MG CAP PO SCH ×2 (09:13→21:15)
[2022-05-12 13:00] VITALS: BP 116/70
[2022-05-12 17:00] VITALS: BP 116/74
[2022-05-12 22:00] VITALS: BP 129/77
[2022-05-13 05:00] VITALS: BP 116/76
[2022-05-13 06:20] LABS: Hematocrit 24.3 % (41.0-53.0); Mean Corpuscular Hemoglobin 32.9 pg (28.0-32.0); Mean Corpuscular Hgb Conc. 32.9 g/dL (32.0-36.0); Mean Corpuscular Volume 100.1 fL (80.0-100.0); Red Blood Cells 2.42 10^6/uL (4.5-5.90); White Blood Cell 6.6 10^3/uL (4.4-10.8)
[2022-05-13 06:23] LABS: INR 2.28 (0.9-1.15); Partial Thromboplastin Time 50.7 sec (24.6-33.4)
[2022-05-13 06:30] LABS: Red Cell Distribution Width 24.4 % (11.8-14.3)
[2022-05-13 06:31] LABS: Potassium 4.2 mmol/L (3.5-5.1)
[2022-05-13 06:32] LABS: Basophils % (manual) 0 (0.0-2.0); Blast Cells 0; Metamyelocytes % 0; Myelocytes % 0; Promyelocytes % 0; Reactive Lymphocytes 0
[2022-05-13 06:37] LABS: Albumin 2.1 g/dL (3.4-5.0); Bilirubin, Total 14.4 mg/dL (0.2-1.0); Calcium 8.2 mg/dL (8.5-10.1)
[2022-05-13 09:00] VITALS: BP 105/72
[2022-05-13] MEDS: URSODIOL 300 MG CAP PO SCH ×2 (10:11→23:05)
[2022-05-13] MEDS: LACTULOSE 20Gm/30ML SOLN PO SCH ×2 (10:11→23:04)
[2022-05-13] MEDS: MULTIPLE VITAMIN TAB PO SCH (10:11)
[2022-05-13] MEDS: predniSONE 20 MG TAB PO SCH (10:11)
[2022-05-13] MEDS: PANTOPRAZOLE 40 MG/10 ML VIAL INJ IV SCH ×2 (10:11→23:05)
[2022-05-13] MEDS: THIAMINE 100mg/ml INJ (200mg/2ml VIAL) IV SCH (10:11)
[2022-05-13] MEDS: cefTRIAXone 1GM/50ML D5W 50 ML IV SCH (10:11)
[2022-05-13] MEDS: rifAXIMin 550 MG TAB PO SCH ×2 (10:24→23:04)
[2022-05-13 13:00] VITALS: BP 113/76
[2022-05-13 14:47] LABS: Band Neutrophils % (manual) 6; Eosinophils % (manual) 3 (0-7); Lymphocytes % (manual) 12 (10.0-50.0); Monocytes % (manual) 10 (0-12)
[2022-05-13 17:03] VITALS: BP 114/81
[2022-05-13 22:00] VITALS: BP 115/76
[2022-05-14 05:00] VITALS: BP 102/65
[2022-05-14 09:00] VITALS: BP 114/76
[2022-05-14] MEDS: PANTOPRAZOLE 40 MG/10 ML VIAL INJ IV SCH ×2 (09:40→23:07)
[2022-05-14] MEDS: URSODIOL 300 MG CAP PO SCH ×2 (09:40→23:07)
[2022-05-14] MEDS: predniSONE 20 MG TAB PO SCH (09:41)
[2022-05-14] MEDS: MULTIPLE VITAMIN TAB PO SCH (09:42)
[2022-05-14] MEDS: cefTRIAXone 1GM/50ML D5W 50 ML IV SCH (09:42)
[2022-05-14] MEDS: THIAMINE 100mg/ml INJ (200mg/2ml VIAL) IV SCH (09:43)
[2022-05-14] MEDS: LACTULOSE 20Gm/30ML SOLN PO SCH ×2 (09:43→23:07)
[2022-05-14] MEDS: rifAXIMin 550 MG TAB PO SCH ×2 (10:37→23:08)
[2022-05-14 10:45] LABS: Hematocrit 30.3 % (41.0-53.0); Mean Corpuscular Hemoglobin 32.3 pg (28.0-32.0); Mean Corpuscular Hgb Conc. 29.8 g/dL (32.0-36.0); Mean Corpuscular Volume 108.3 fL (80.0-100.0); White Blood Cell 7.1 10^3/uL (4.4-10.8)
[2022-05-14 10:52] LABS: Red Cell Distribution Width 25.1 % (11.8-14.3)
[2022-05-14 10:54] LABS: Band Neutrophils % (manual) 0; Basophils % (manual) 0 (0.0-2.0); Blast Cells 0; Metamyelocytes % 0; Myelocytes % 0; Promyelocytes % 0; Reactive Lymphocytes 0
[2022-05-14 11:01] LABS: Albumin 2.2 g/dL (3.4-5.0); Calcium 8.3 mg/dL (8.5-10.1)
[2022-05-14 11:06] LABS: BUN/Creatinine Ratio 13.2; Bilirubin, Total 16.8 mg/dL (0.2-1.0); Total Protein 5.4 g/dL (6.4-8.2)
[2022-05-14 13:24] VITALS: BP 123/70
[2022-05-14 13:34] LABS: Eosinophils % (manual) 1 (0-7); Lymphocytes % (manual) 14 (10.0-50.0); Monocytes % (manual) 14 (0-12)
[2022-05-14 17:00] VITALS: BP 111/69
[2022-05-14 20:00] VITALS: BP 119/84
[2022-05-14 22:00] VITALS: BP 119/84
[2022-05-14] MEDS: diphenhdrAMINE HCL 50 MG/1 ML VL IV PRN (23:08)
[2022-05-15 05:00] VITALS: BP 165/78
[2022-05-15 06:47] LABS: Hemoglobin 7.6 g/dL (13.5-17.5); Red Blood Cells 2.27 10^6/uL (4.5-5.90); White Blood Cell 4.7 10^3/uL (4.4-10.8)
[2022-05-15 06:50] LABS: Hematocrit 22.7 % (41.0-53.0); Mean Corpuscular Hemoglobin 33.5 pg (28.0-32.0); Mean Corpuscular Hgb Conc. 33.5 g/dL (32.0-36.0)
[2022-05-15 06:54] LABS: Albumin 1.9 g/dL (3.4-5.0); BUN/Creatinine Ratio 11.1; Calcium 8.4 mg/dL (8.5-10.1); Potassium 3.6 mmol/L (3.5-5.1)
[2022-05-15 06:59] LABS: Red Cell Distribution Width 23.4 % (11.8-14.3)
[2022-05-15 07:01] LABS: Basophils % (manual) 0 (0.0-2.0); Blast Cells 0; Metamyelocytes % 0; Myelocytes % 0; Promyelocytes % 0; Reactive Lymphocytes 0
[2022-05-15 07:04] LABS: Bilirubin, Total 15.6 mg/dL (0.2-1.0); Total Protein 4.8 g/dL (6.4-8.2)
[2022-05-15 08:23] LABS: Band Neutrophils % (manual) 5; Eosinophils % (manual) 5 (0-7); Lymphocytes % (manual) 7 (10.0-50.0); Monocytes % (manual) 15 (0-12)
[2022-05-15] MEDS: cefTRIAXone 1GM/50ML D5W 50 ML IV SCH (09:19)
[2022-05-15 09:32] VITALS: BP 104/63
[2022-05-15] MEDS: predniSONE 20 MG TAB PO SCH (10:26)
[2022-05-15] MEDS: LACTULOSE 20Gm/30ML SOLN PO SCH ×2 (10:26→22:50)
[2022-05-15] MEDS: MULTIPLE VITAMIN TAB PO SCH (10:26)
[2022-05-15] MEDS: rifAXIMin 550 MG TAB PO SCH ×2 (10:26→22:50)
[2022-05-15] MEDS: URSODIOL 300 MG CAP PO SCH ×2 (10:26→22:53)
[2022-05-15] MEDS: PANTOPRAZOLE 40 MG/10 ML VIAL INJ IV SCH ×2 (10:27→22:50)
[2022-05-15] MEDS: THIAMINE 100mg/ml INJ (200mg/2ml VIAL) IV SCH (10:27)
[2022-05-15 12:48] VITALS: BP 109/76
[2022-05-15] MEDS ORDERED: MAALOX PLUS or MAALOX 30 ML PO PRN (14:45)
[2022-05-15 16:32] VITALS: BP 115/74
[2022-05-15 22:00] VITALS: BP 109/73
[2022-05-16 05:00] VITALS: BP 98/60
[2022-05-16 06:28] LABS: Albumin 2.3 g/dL (3.4-5.0); Calcium 8.3 mg/dL (8.5-10.1); Potassium 3.7 mmol/L (3.5-5.1)
[2022-05-16 06:31] LABS: BUN/Creatinine Ratio 11.7; Bilirubin, Total 16.4 mg/dL (0.2-1.0); Total Protein 5.6 g/dL (6.4-8.2)
[2022-05-16 07:33] LABS: Basophils # (auto) 0 10 ^3/uL (0-0.2); Eosinophils # (auto) 0.2 10 ^3/uL (0-0.8); Hemoglobin 8.4 g/dL (13.5-17.5); Monocytes # (auto) 0.8 10 ^3/uL (0-1.3); White Blood Cell 5.9 10^3/uL (4.4-10.8)
[2022-05-16 07:37] LABS: Basophils % (auto) 0.1 % (0.0-2.0); Hematocrit 25.4 % (41.0-53.0); Lymphocytes # (auto) 0.8 10 ^3/uL (0.4-5.4); Lymphocytes % (auto) 13.1 % (10.0-50.0); Mean Corpuscular Hemoglobin 34.1 pg (28.0-32.0); Mean Corpuscular Volume 103.4 fL (80.0-100.0); Monocytes % (auto) 14.1 % (0.0-12.0); Neutrophils # (auto) 4.1 10 ^3/uL (1.6-8.6); Neutrophils % (auto) 69.7 % (37.0-80.0); Nucleated Red Blood Cells % 0.7 %; Red Blood Cells 2.46 10^6/uL (4.5-5.90)
[2022-05-16 08:00] LABS: Red Cell Distribution Width 24.2 % (11.8-14.3)
[2022-05-16] MEDS: ONDANSETRON HCL 4 MG/2 ML VIAL IV PRN (08:25)
[2022-05-16] MEDS: cefTRIAXone 1GM/50ML D5W 50 ML IV SCH (08:39)
[2022-05-16] MEDS: LACTULOSE 20Gm/30ML SOLN PO SCH ×2 (09:52→21:21)
[2022-05-16] MEDS: PANTOPRAZOLE 40 MG/10 ML VIAL INJ IV SCH ×2 (09:53→21:22)
[2022-05-16] MEDS: URSODIOL 300 MG CAP PO SCH ×2 (09:53→21:21)
[2022-05-16] MEDS: MULTIPLE VITAMIN TAB PO SCH (09:53)
[2022-05-16] MEDS: predniSONE 20 MG TAB PO SCH (09:53)
[2022-05-16] MEDS: THIAMINE 100mg/ml INJ (200mg/2ml VIAL) IV SCH (09:53)
[2022-05-16 10:00] VITALS: BP_SYST 105; BP_SYST 115; BP_DIAS 66; BP_DIAS 78
[2022-05-16] MEDS: rifAXIMin 550 MG TAB PO SCH ×2 (10:17→21:29)
[2022-05-16] MEDS: HYDROcodone-ACET 5/325MG TAB PO PRN ×2 (10:17→23:18)
[2022-05-16 22:00] VITALS: BP 110/62
[2022-05-17 05:00] VITALS: BP 100/57
[2022-05-17 06:09] LABS: Hematocrit 24.7 % (41.0-53.0)
[2022-05-17 06:12] LABS: Mean Corpuscular Hemoglobin 34.1 pg (28.0-32.0); Mean Corpuscular Hgb Conc. 32.5 g/dL (32.0-36.0); Mean Corpuscular Volume 104.9 fL (80.0-100.0); Red Blood Cells 2.36 10^6/uL (4.5-5.90); White Blood Cell 5.9 10^3/uL (4.4-10.8)
[2022-05-17 06:24] LABS: Albumin 2.3 g/dL (3.4-5.0); Calcium 8.2 mg/dL (8.5-10.1); Potassium 3.6 mmol/L (3.5-5.1)
[2022-05-17 06:28] LABS: BUN/Creatinine Ratio 8.7; Bilirubin, Total 14.8 mg/dL (0.2-1.0); Total Protein 5.4 g/dL (6.4-8.2)
[2022-05-17 06:49] LABS: Red Cell Distribution Width 24.7 % (11.8-14.3)
[2022-05-17 06:52] LABS: Band Neutrophils % (manual) 0; Basophils % (manual) 0 (0.0-2.0); Blast Cells 0; Eosinophils % (manual) 0 (0-7); Metamyelocytes % 0; Myelocytes % 0; Promyelocytes % 0; Reactive Lymphocytes 0
[2022-05-17 08:56] VITALS: BP 91/52
[2022-05-17] MEDS: THIAMINE 100mg/ml INJ (200mg/2ml VIAL) IV SCH (08:56)
[2022-05-17] MEDS: cefTRIAXone 1GM/50ML D5W 50 ML IV SCH (08:56)
[2022-05-17] MEDS: rifAXIMin 550 MG TAB PO SCH ×2 (08:57→21:28)
[2022-05-17] MEDS: LACTULOSE 20Gm/30ML SOLN PO SCH ×2 (08:57→21:27)
[2022-05-17] MEDS: predniSONE 20 MG TAB PO SCH (08:57)
[2022-05-17] MEDS: PANTOPRAZOLE 40 MG/10 ML VIAL INJ IV SCH (08:57)
[2022-05-17] MEDS: MULTIPLE VITAMIN TAB PO SCH (08:57)
[2022-05-17 09:03] LABS: Lymphocytes % (manual) 15 (10.0-50.0); Monocytes % (manual) 9 (0-12)
[2022-05-17] MEDS: URSODIOL 300 MG CAP PO SCH ×2 (10:31→21:28)
[2022-05-17] MEDS: HYDROcodone-ACET 5/325MG TAB PO PRN ×2 (12:48→21:28)
[2022-05-17 12:56] VITALS: BP 103/68
[2022-05-17 17:00] VITALS: BP 103/69
[2022-05-17] MEDS: PANTOPRAZOLE 40 MG TAB PO SCH (21:28)
[2022-05-17 22:00] VITALS: BP 107/67
[2022-05-17 23:13] LABS: INR 2.55 (0.9-1.15)
[2022-05-18 05:00] VITALS: BP 100/53
[2022-05-18 06:36] LABS: Potassium 3.6 mmol/L (3.5-5.1)
[2022-05-18 06:46] LABS: Albumin 2.4 g/dL (3.4-5.0); BUN/Creatinine Ratio 9.3; Calcium 8.3 mg/dL (8.5-10.1); Total Protein 5.5 g/dL (6.4-8.2)
[2022-05-18 06:51] LABS: Bilirubin, Total 15.2 mg/dL (0.2-1.0)
[2022-05-18 07:20] LABS: Hemoglobin 8.3 g/dL (13.5-17.5)
[2022-05-18 07:22] LABS: Hematocrit 25.6 % (41.0-53.0); Mean Corpuscular Hemoglobin 34.5 pg (28.0-32.0); Mean Corpuscular Hgb Conc. 32.6 g/dL (32.0-36.0); Mean Corpuscular Volume 105.8 fL (80.0-100.0); Red Blood Cells 2.42 10^6/uL (4.5-5.90); White Blood Cell 5.3 10^3/uL (4.4-10.8)
[2022-05-18 07:28] LABS: Red Cell Distribution Width 25.5 % (11.8-14.3)
[2022-05-18 07:31] LABS: Basophils % (manual) 0 (0.0-2.0); Blast Cells 0; Metamyelocytes % 0; Myelocytes % 0; Promyelocytes % 0; Reactive Lymphocytes 0
[2022-05-18 08:00] LABS: Band Neutrophils % (manual) 2; Eosinophils % (manual) 3 (0-7); Lymphocytes % (manual) 15 (10.0-50.0); Monocytes % (manual) 7 (0-12)
[2022-05-18 08:33] VITALS: BP 97/64
[2022-05-18] MEDS: MULTIPLE VITAMIN TAB PO SCH (09:33)
[2022-05-18] MEDS: LACTULOSE 20Gm/30ML SOLN PO SCH ×2 (09:33→21:09)
[2022-05-18] MEDS: predniSONE 20 MG TAB PO SCH (09:33)
[2022-05-18] MEDS: PANTOPRAZOLE 40 MG TAB PO SCH ×2 (09:34→21:09)
[2022-05-18] MEDS: THIAMINE HCL 100 MG TAB PO SCH (09:34)
[2022-05-18] MEDS: URSODIOL 300 MG CAP PO SCH ×2 (09:34→21:09)
[2022-05-18] MEDS: diphenhdrAMINE HCL 50 MG/1 ML VL IV PRN (09:34)
[2022-05-18] MEDS ORDERED: PHYTONADIONE (VIT K)10 MG/ML 1ML VIAL SUBCUT ONE (12:00)
[2022-05-18] MEDS ORDERED: FUROSEMIDE 20 MG TAB PO ONE (12:15)
[2022-05-18] MEDS ORDERED: SPIRONOLACTONE 25 MG TAB PO ONE (12:15)
[2022-05-18 12:30] VITALS: BP 105/68
[2022-05-18] MEDS: HYDROcodone-ACET 5/325MG TAB PO PRN (15:03)
[2022-05-18 16:20] VITALS: BP 111/72
[2022-05-18 22:00] VITALS: BP 102/64
[2022-05-19] VITALS (14 sets, daily range): BP systolic 96–109; BP diastolic 56–70
[2022-05-19 05:24] LABS: Mean Corpuscular Hemoglobin 34.3 pg (28.0-32.0)
[2022-05-19 05:26] LABS: Hematocrit 22.7 % (41.0-53.0); Hemoglobin 7.3 g/dL (13.5-17.5); Mean Corpuscular Hgb Conc. 32.2 g/dL (32.0-36.0); Mean Corpuscular Volume 106.5 fL (80.0-100.0); Red Blood Cells 2.14 10^6/uL (4.5-5.90); White Blood Cell 4.4 10^3/uL (4.4-10.8)
[2022-05-19 05:40] LABS: Albumin 2.4 g/dL (3.4-5.0); Calcium 8.6 mg/dL (8.5-10.1); Potassium 3.7 mmol/L (3.5-5.1)
[2022-05-19 05:44] LABS: BUN/Creatinine Ratio 9.4; Bilirubin, Total 15.2 mg/dL (0.2-1.0); Total Protein 5.4 g/dL (6.4-8.2)
[2022-05-19 05:53] LABS: Red Cell Distribution Width 25.9 % (11.8-14.3)
[2022-05-19 05:55] LABS: Band Neutrophils % (manual) 0; Basophils % (manual) 0 (0.0-2.0); Blast Cells 0; Eosinophils % (manual) 0 (0-7); Metamyelocytes % 0; Myelocytes % 0; Promyelocytes % 0; Reactive Lymphocytes 0
[2022-05-19 08:32] LABS: Lymphocytes % (manual) 7 (10.0-50.0); Monocytes % (manual) 9 (0-12)
[2022-05-19 08:50] LABS: INR 2.03 (0.9-1.15)
[2022-05-19] MEDS: FUROSEMIDE 20 MG TAB PO SCH (10:48)
[2022-05-19] MEDS: SPIRONOLACTONE 25 MG TAB PO SCH (10:48)
[2022-05-19] MEDS: THIAMINE HCL 100 MG TAB PO SCH (10:49)
[2022-05-19] MEDS: URSODIOL 300 MG CAP PO SCH ×2 (10:50→21:07)
[2022-05-19] MEDS: MULTIPLE VITAMIN TAB PO SCH (10:50)
[2022-05-19] MEDS: LACTULOSE 20Gm/30ML SOLN PO SCH ×2 (10:50→21:07)
[2022-05-19] MEDS: predniSONE 20 MG TAB PO SCH (10:50)
[2022-05-19] MEDS: PANTOPRAZOLE 40 MG TAB PO SCH ×2 (10:50→21:07)
[2022-05-19] MEDS: HYDROcodone-ACET 5/325MG TAB PO PRN (21:08)
[2022-05-20 05:00] VITALS: BP 95/57
[2022-05-20 06:13] LABS: Albumin 2.2 g/dL (3.4-5.0); Calcium 8.3 mg/dL (8.5-10.1); Hematocrit 22.8 % (41.0-53.0); Hemoglobin 7.1 g/dL (13.5-17.5); Mean Corpuscular Hemoglobin 34.6 pg (28.0-32.0); Mean Corpuscular Volume 111.6 fL (80.0-100.0); Potassium 4.1 mmol/L (3.5-5.1); Red Blood Cells 2.05 10^6/uL (4.5-5.90); White Blood Cell 4.6 10^3/uL (4.4-10.8)
[2022-05-20 06:14] LABS: Red Cell Distribution Width 26.4 % (11.8-14.3)
[2022-05-20 06:16] LABS: BUN/Creatinine Ratio 10.1; Bilirubin, Total 14.5 mg/dL (0.2-1.0)
[2022-05-20 06:17] LABS: Basophils % (manual) 0 (0.0-2.0); Blast Cells 0; Eosinophils % (manual) 0 (0-7); Metamyelocytes % 0; Myelocytes % 0; Promyelocytes % 0; Reactive Lymphocytes 0
[2022-05-20 07:31] LABS: Band Neutrophils % (manual) 14; Lymphocytes % (manual) 10 (10.0-50.0); Monocytes % (manual) 5 (0-12)
[2022-05-20 08:00] VITALS: BP 96/52
[2022-05-20] MEDS: FUROSEMIDE 20 MG TAB PO SCH (10:00)
[2022-05-20] MEDS: SPIRONOLACTONE 25 MG TAB PO SCH (10:12)
[2022-05-20] MEDS: predniSONE 20 MG TAB PO SCH (10:14)
[2022-05-20] MEDS: MULTIPLE VITAMIN TAB PO SCH (10:15)
[2022-05-20] MEDS: THIAMINE HCL 100 MG TAB PO SCH (10:16)
[2022-05-20] MEDS: PANTOPRAZOLE 40 MG TAB PO SCH ×2 (10:16→22:01)
[2022-05-20] MEDS: LACTULOSE 20Gm/30ML SOLN PO SCH ×2 (10:17→22:01)
[2022-05-20 12:00] VITALS: BP 104/64
[2022-05-20] MEDS: URSODIOL 300 MG CAP PO SCH ×2 (14:16→22:01)
[2022-05-20 16:00] VITALS: BP 112/66
[2022-05-20 22:00] VITALS: BP 105/70
[2022-05-20] MEDS: HYDROcodone-ACET 5/325MG TAB PO PRN (22:02)
[2022-05-21 05:00] VITALS: BP 106/70
[2022-05-21 05:51] LABS: Mean Corpuscular Hgb Conc. 32.6 g/dL (32.0-36.0)
[2022-05-21 05:54] LABS: Hematocrit 23.3 % (41.0-53.0); Hemoglobin 7.6 g/dL (13.5-17.5); Mean Corpuscular Hemoglobin 34.9 pg (28.0-32.0); Mean Corpuscular Volume 106.9 fL (80.0-100.0); Red Blood Cells 2.18 10^6/uL (4.5-5.90); White Blood Cell 5.7 10^3/uL (4.4-10.8)
[2022-05-21 05:56] LABS: Red Cell Distribution Width 25.7 % (11.8-14.3)
[2022-05-21 05:57] LABS: Basophils % (manual) 0 (0.0-2.0); Blast Cells 0; Promyelocytes % 0; Reactive Lymphocytes 0
[2022-05-21 06:11] LABS: Albumin 2.3 g/dL (3.4-5.0); Calcium 8.1 mg/dL (8.5-10.1); Potassium 4.2 mmol/L (3.5-5.1)
[2022-05-21 06:14] LABS: BUN/Creatinine Ratio 10.3; Bilirubin, Total 14.7 mg/dL (0.2-1.0); Total Protein 5.2 g/dL (6.4-8.2)
[2022-05-21 07:54] LABS: Band Neutrophils % (manual) 13; Eosinophils % (manual) 1 (0-7); Lymphocytes % (manual) 12 (10.0-50.0); Metamyelocytes % 1; Monocytes % (manual) 5 (0-12); Myelocytes % 3
[2022-05-21 09:00] VITALS: BP 107/62
[2022-05-21] MEDS ORDERED: predniSONE 20 MG TAB PO SCH (10:00)
[2022-05-21] MEDS: LACTULOSE 20Gm/30ML SOLN PO SCH (10:19)
[2022-05-21] MEDS: FUROSEMIDE 20 MG TAB PO SCH (10:20)
[2022-05-21] MEDS: THIAMINE HCL 100 MG TAB PO SCH (10:21)
[2022-05-21] MEDS: PANTOPRAZOLE 40 MG TAB PO SCH (10:21)
[2022-05-21] MEDS: SPIRONOLACTONE 25 MG TAB PO SCH (10:22)
[2022-05-21] MEDS: MULTIPLE VITAMIN TAB PO SCH (10:22)
[2022-05-21] MEDS: URSODIOL 300 MG CAP PO SCH (10:23)
[2022-05-21] MEDS ORDERED: FUR20T PO (11:13)
[2022-05-21] MEDS ORDERED: THIA100T10 PO (11:13)
[2022-05-21] MEDS ORDERED: LACT10SO3 PO ×2 (11:13→11:17)
[2022-05-21] MEDS ORDERED: SPIR25TA PO (11:13)
[2022-05-21] MEDS ORDERED: PANT40T PO (11:13)
[2022-05-21] MEDS ORDERED: PRED20TA2 PO (11:13)
[2022-05-21] MEDS ORDERED: RIFA550T PO (11:13)
[2022-05-21] MEDS ORDERED: URSO300C9 PO ×2 (11:13→11:17)
[2022-05-21 12:47] VITALS: BP 103/68
[2022-05-21 12:53] VITALS: BP 103/68
== END 2022-05-21 15:39 | disposition home or self-care (01) | DRG 280 ==
LOC: EDSEX 16:09 → EDBD 16:09 → ER 16:09 → OVERFLOW 20:40 → EAST 04-27 13:50 → TELE-EAST 05-10 10:14
PROVIDERS: ADMIT Nurse Practitioner; ATTEND Student in an Organized Health Care Education/Training Program
PROC: 30233N1 Transfusion of Nonautologous Red Blood Cells into Peripheral Vein, Percutaneous Approach (ICD-10-PCS; principal; 2022-04-27)
PROC: 05H933Z Insertion of Infusion Device into Right Brachial Vein, Percutaneous Approach (ICD-10-PCS; 2022-04-27)
PROC: B54MZZA Ultrasonography of Right Upper Extremity Veins, Guidance (ICD-10-PCS; 2022-04-27)
PROC: 0W9G3ZZ Drainage of Peritoneal Cavity, Percutaneous Approach (ICD-10-PCS; 2022-04-29)
PROC: 30233K1 Transfusion of Nonautologous Frozen Plasma into Peripheral Vein, Percutaneous Approach (ICD-10-PCS; 2022-05-04)
PROC: 0DB98ZX Excision of Duodenum, Via Natural or Artificial Opening Endoscopic, Diagnostic (ICD-10-PCS; 2022-05-05)
PROC: 0DB68ZX Excision of Stomach, Via Natural or Artificial Opening Endoscopic, Diagnostic (ICD-10-PCS; 2022-05-05)
PROC: 0W9G3ZZ Drainage of Peritoneal Cavity, Percutaneous Approach (ICD-10-PCS; 2022-05-05)
PROC: 30233R1 Transfusion of Nonautologous Platelets into Peripheral Vein, Percutaneous Approach (ICD-10-PCS; 2022-05-11)
PROC: 05HC33Z Insertion of Infusion Device into Left Basilic Vein, Percutaneous Approach (ICD-10-PCS; 2022-05-11)
PROC: B54NZZA Ultrasonography of Left Upper Extremity Veins, Guidance (ICD-10-PCS; 2022-05-11)
PROC: 0W9G3ZZ Drainage of Peritoneal Cavity, Percutaneous Approach (ICD-10-PCS; 2022-05-19)
DX: K70.31 Alcoholic cirrhosis of liver with ascites (principal); K70.11 Alcoholic hepatitis with ascites; E43 Unspecified severe protein-calorie malnutrition; D61.818 Other pancytopenia; K76.82 Hepatic encephalopathy; N17.9 Acute kidney failure, unspecified; K29.71 Gastritis, unspecified, with bleeding; D68.9 Coagulation defect, unspecified; D62 Acute posthemorrhagic anemia; D63.8 Anemia in other chronic diseases classified elsewhere; Z20.822 Contact with and (suspected) exposure to COVID-19; K70.9 Alcoholic liver disease, unspecified; R74.01 Elevation of levels of liver transaminase levels; F41.9 Anxiety disorder, unspecified; F10.10 Alcohol abuse, uncomplicated; K44.9 Diaphragmatic hernia without obstruction or gangrene; K21.9 Gastro-esophageal reflux disease without esophagitis; R09.02 Hypoxemia; Z88.8 Allergy status to other drugs, medicaments and biological substances; Z68.22 Body mass index [BMI] 22.0-22.9, adult
CPT/HCPCS: 36415; 36430; 70450; 71046; 76705; 76942; 80053; 80307; 80320; 81001; 82140; 82270; 82728; 82962; 83540; 83550; 83690; 83986; 85007; 85014; 85018; 85025; 85027; 85610; 85730; 86803; 86850; 86900; 86901; 86920; 87040; 87081; 87086; 87205; 87340; 87426; 89051; 93005; 96374; 96375; 97163; C9113; G0378; J0696; J2250; J2405; J2704; J3430

== ENCOUNTER 2022-10-13 16:57 | Emergency (ER) | payer MEDICAID ==
[~2022-10-13] VITALS: Ht 152.4 cm; Wt 59.0 kg
[~2022-10-13 16:57] MED LIST changes: -FERR-20 PO; +FERR325T24 PO; +FOLI-119 PO; -FOLI1TAB6 PO; +FUR20T PO; +LACT10SO3 PO; +PRED20TA2 PO; +RIFA550T PO; +SPIR25TA PO; +THIA100T10 PO; +URSO300C2 PO
[2022-10-13] MEDS ORDERED: LACTULOSE 20Gm/30ML SOLN PO ONE (18:00)
[2022-10-13 18:13] LABS: Basophils # (auto) 0 10 ^3/uL (0-0.2); Eosinophils # (auto) 0 10 ^3/uL (0-0.8); Lymphocytes # (auto) 0.3 10 ^3/uL (0.4-5.4); Monocytes # (auto) 0.6 10 ^3/uL (0-1.3); Nucleated Red Blood Cells % 0.1 %
[2022-10-13 18:15] LABS: Eosinophils % (auto) 0.1 % (0.0-7.0); Hematocrit 26.9 % (41.0-53.0); Hemoglobin 9.4 g/dL (13.5-17.5); Lymphocytes % (auto) 3.5 % (10.0-50.0); Mean Corpuscular Hemoglobin 35.9 pg (28.0-32.0); Mean Corpuscular Hgb Conc. 34.8 g/dL (32.0-36.0); Mean Corpuscular Volume 103.2 fL (80.0-100.0); Monocytes % (auto) 7.2 % (0.0-12.0); Neutrophils # (auto) 7.1 10 ^3/uL (1.6-8.6); Neutrophils % (auto) 89.2 % (37.0-80.0); Red Cell Distribution Width 14.4 % (11.8-14.3)
[2022-10-13 18:25] LABS: Albumin 2.6 g/dL (3.4-5.0); Calcium 9.3 mg/dL (8.5-10.1)
[2022-10-13 18:28] LABS: BUN/Creatinine Ratio 25.6 (10.0-20.0); Total Protein 6.2 g/dL (6.4-8.2)
[2022-10-13 18:32] LABS: INR 3.1 (0.9-1.15)
[2022-10-13] MEDS ORDERED: phytonadione 10 MG in SODIUM CHL 0.9% 50 ML IV ONE (18:45)
[2022-10-13 20:29] VITALS: BP 125/75
[2022-10-13 20:39] VITALS: BP 121/79
[2022-10-13 20:40] VITALS: BP 121/79
== END 2022-10-13 23:02 | disposition short-term general hospital (02) ==
LOC: EDBD 16:57 → ER 16:57
DX: S06.5XAA Traumatic subdural hemorrhage with loss of consciousness status unknown, initial encounter (principal); K72.10 Chronic hepatic failure without coma; D68.9 Coagulation defect, unspecified; D69.6 Thrombocytopenia, unspecified; F41.9 Anxiety disorder, unspecified; E78.5 Hyperlipidemia, unspecified; K27.9 Peptic ulcer, site unspecified, unspecified as acute or chronic, without hemorrhage or perforation; Z91.011 Allergy to milk products; Z79.899 Other long term (current) drug therapy; Z86.2 Personal history of diseases of the blood and blood-forming organs and certain disorders involving the immune mechanism; X58.XXXA Exposure to other specified factors, initial encounter; Y93.89 Activity, other specified; Y92.89 Other specified places as the place of occurrence of the external cause; Y99.8 Other external cause status
CPT/HCPCS: 36415; 36430; 70450; 80053; 82140; 85025; 85610; 86850; 86900; 86901; 93005; 96365; 96366; 99291; J3430; P9017

== ENCOUNTER 2022-12-19 09:50 | Inpatient (IN) | payer MEDICAID ==
[~2022-12-19] VITALS: Ht 165.1 cm; Wt 100.8 kg
[2022-12-19 10:48] LABS: Basophils # (auto) 0 10 ^3/uL (0-0.2); Eosinophils # (auto) 0.1 10 ^3/uL (0-0.8); Mean Corpuscular Volume 108.2 fL (80.0-100.0); Monocytes # (auto) 0.8 10 ^3/uL (0-1.3)
[2022-12-19 10:50] LABS: Basophils % (auto) 0.5 % (0.0-2.0); Eosinophils % (auto) 1.9 % (0.0-7.0); Hematocrit 26.8 % (41.0-53.0); Hemoglobin 8.8 g/dL (13.5-17.5); Lymphocytes # (auto) 0.6 10 ^3/uL (0.4-5.4); Lymphocytes % (auto) 7.9 % (10.0-50.0); Mean Corpuscular Hemoglobin 35.8 pg (28.0-32.0); Monocytes % (auto) 10.2 % (0.0-12.0); Neutrophils # (auto) 5.8 10 ^3/uL (1.6-8.6); Neutrophils % (auto) 79.5 % (37.0-80.0); Nucleated Red Blood Cells % 0.2 %; Red Blood Cells 2.47 10^6/uL (4.5-5.90); White Blood Cell 7.4 10^3/uL (4.4-10.8)
[2022-12-19 10:55] LABS: Albumin 2.9 g/dL (3.2-4.8); Alkaline Phosphatase 124 U/L (46-116); Anion Gap 7.5 (5-15); Bilirubin, Total 21.9 mg/dL (0.2-1.0); Calcium 8.7 mg/dL (8.5-10.1); Carbon Dioxide 20.5 mmol/L (20-30); Chloride 104 mmol/L (98-107); Glucose 123 mg/dL (74-106); Magnesium 1.6 mg/dL (1.6-2.6); Potassium 4.2 mmol/L (3.5-5.1); Sodium 132 mmol/L (136-145)
[2022-12-19 11:42] LABS: Alanine Aminotransferase 30 U/L (7-40); Aspartate Aminotransferase 73 U/L (13-40); BUN/Creatinine Ratio 17.9 (10.0-20.0); Blood Urea Nitrogen 10 mg/dL (9-23); Total Protein 6.7 g/dL (5.7-8.2)
[2022-12-19 11:45] LABS: Lactic Acid w/Reflex 2.2 mmol/L (0.4-2.0)
[2022-12-19 11:46] LABS: INR 2.09 (0.9-1.15); Prothrombin Time 20.9 sec (9.3-11.8)
[2022-12-19 13:28] LABS: Anisocytosis Slight; Platelet Estimate Decreased
[2022-12-19 13:29] LABS: Macrocytosis Slight; Polychromasia Slight
[2022-12-19 13:30] LABS: Ovalocytes FEW
[2022-12-19] MEDS ORDERED: NITROGLYCERIN 0.4 MG SL TAB SL PRN (15:00)
[2022-12-19] MEDS ORDERED: ONDANSETRON HCL 4 MG/2 ML VIAL IV PRN (15:00)
[2022-12-19] MEDS ORDERED: MORPHINE SULFATE INJ 2 MG/ml SYRG IV PRN (15:00)
[2022-12-19 17:42] VITALS: PULSE 110; RESP 26; O2SAT 99
[2022-12-19 19:48] VITALS: PULSE 117; RESP 24; O2SAT 99
[2022-12-19] MEDS: rifAXIMin 550 MG TAB PO SCH (21:35)
[2022-12-19] MEDS: LACTULOSE 20Gm/30ML SOLN PO SCH (21:35)
[2022-12-19] MEDS: PANTOPRAZOLE 40 MG TAB PO SCH (21:36)
[2022-12-19 22:00] VITALS: BP 110/91; PULSE 61; RESP 16; TEMP 98.6; O2SAT 98
[2022-12-19 22:21] VITALS: BP 110/75; PULSE 100; RESP 20; TEMP 98.6
[2022-12-19] MEDS ORDERED: MIDO5TAB4 PO (22:46)
[2022-12-19] MEDS ORDERED: CIPR500T4 PO (22:46)
[2022-12-19] MEDS ORDERED: ERGO1CAP12 PO (22:46)
[2022-12-20 05:29] VITALS: BP 101/65; PULSE 113; RESP 18; TEMP 98.1; O2SAT 100
[2022-12-20 06:22] LABS: Hematocrit 23.8 % (41.0-53.0); Nucleated Red Blood Cells % 0.1 %
[2022-12-20 06:25] LABS: Basophils # (auto) 0.1 10 ^3/uL (0-0.2); Basophils % (auto) 1.1 % (0.0-2.0); Eosinophils # (auto) 0.1 10 ^3/uL (0-0.8); Eosinophils % (auto) 1.7 % (0.0-7.0); Hemoglobin 7.9 g/dL (13.5-17.5); Lymphocytes # (auto) 0.5 10 ^3/uL (0.4-5.4); Lymphocytes % (auto) 7.1 % (10.0-50.0); Mean Corpuscular Hemoglobin 35.8 pg (28.0-32.0); Mean Corpuscular Hgb Conc. 33.3 g/dL (32.0-36.0); Mean Corpuscular Volume 107.3 fL (80.0-100.0); Monocytes # (auto) 0.7 10 ^3/uL (0-1.3); Monocytes % (auto) 9.8 % (0.0-12.0); Neutrophils # (auto) 6.1 10 ^3/uL (1.6-8.6); Neutrophils % (auto) 80.3 % (37.0-80.0); Red Blood Cells 2.22 10^6/uL (4.5-5.90); Red Cell Distribution Width 17.5 % (11.8-14.3); White Blood Cell 7.6 10^3/uL (4.4-10.8)
[2022-12-20 06:46] LABS: Alanine Aminotransferase 29 U/L (7-40); Albumin 2.5 g/dL (3.2-4.8); Alkaline Phosphatase 86 U/L (46-116); Aspartate Aminotransferase 71 U/L (13-40); Bilirubin, Total 19.4 mg/dL (0.2-1.0); Blood Urea Nitrogen 9 mg/dL (9-23); Cholesterol 127 mg/dL (< 200); Glucose 82 mg/dL (74-106); HDL Cholesterol 12 mg/dL (40-59); LDL Cholesterol 37 mg/dL (< 100); Total Protein 5.7 g/dL (5.7-8.2)
[2022-12-20 08:06] LABS: Chloride 105 mmol/L (98-107); Potassium 4.4 mmol/L (3.5-5.1); Sodium 137 mmol/L (136-145)
[2022-12-20 08:08] LABS: Anion Gap 12.2 (5-15)
[2022-12-20 08:09] LABS: Carbon Dioxide 19.8 mmol/L (20-30)
[2022-12-20 08:11] LABS: Calcium 8.3 mg/dL (8.5-10.1)
[2022-12-20 09:00] VITALS: BP 100/72; PULSE 117; RESP 18; TEMP 98.1; O2SAT 95
[2022-12-20 09:19] LABS: BUN/Creatinine Ratio 22.5 (10.0-20.0); Triglycerides 73 mg/dL (< 150)
[2022-12-20] MEDS: FERROUS SULFATE 325mg EC TAB PO SCH (09:59)
[2022-12-20] MEDS: THIAMINE HCL 100 MG TAB PO SCH (09:59)
[2022-12-20] MEDS: LACTULOSE 20Gm/30ML SOLN PO SCH ×2 (09:59→22:30)
[2022-12-20] MEDS: PANTOPRAZOLE 40 MG TAB PO SCH ×2 (10:00→22:29)
[2022-12-20] MEDS ORDERED: FUROSEMIDE 20 MG TAB PO SCH (10:00)
[2022-12-20] MEDS: FOLIC ACID 1 MG TAB PO SCH (10:00)
[2022-12-20] MEDS: rifAXIMin 550 MG TAB PO SCH ×2 (10:00→22:29)
[2022-12-20] MEDS ORDERED: SPIRONOLACTONE 25 MG TAB PO SCH (10:00)
[2022-12-20] MEDS: MULTIPLE VITAMIN TAB PO SCH (10:00)
[2022-12-20] MEDS: SPIRONOLACTONE 25 MG TAB PO SCH (10:01)
[2022-12-20 10:47] LABS: Ovalocytes FEW
[2022-12-20 10:48] LABS: Anisocytosis Slight; Macrocytosis Slight; Platelet Estimate Decreased; Polychromasia Slight
[2022-12-20] MEDS ORDERED: ACETAMINOPHEN 500 MG TAB PO PRN (11:30)
[2022-12-20] MEDS ORDERED: traMADol HCL 50 MG TAB PO PRN (11:30)
[2022-12-20 13:00] VITALS: BP 107/68; PULSE 125; RESP 20; TEMP 98.1; O2SAT 94
[2022-12-20] MEDS: cefTRIAXone 1GM/50ML D5W 50 ML IV SCH (13:04)
[2022-12-20 17:00] VITALS: BP 96/67; PULSE 113; RESP 16; TEMP 97.9; O2SAT 96
[2022-12-20] MEDS: FUROSEMIDE 20 MG/2 ML VIAL IV SCH (17:52)
[2022-12-20 20:00] VITALS: PULSE 118; RESP 16; O2SAT 93
[2022-12-20 22:00] VITALS: BP 99/60; PULSE 118; RESP 16; TEMP 97.9; O2SAT 93
[2022-12-20] MEDS ORDERED: phytonadione 10 MG in SODIUM CHL 0.9% 50 ML IV ONE (22:30)
[2022-12-21] MEDS ORDERED: phytonadione 1 ML ONE (00:45)
[2022-12-21 05:00] VITALS: BP 107/73; PULSE 56; RESP 16; TEMP 97.7; O2SAT 94
[2022-12-21] MEDS: FUROSEMIDE 20 MG/2 ML VIAL IV SCH ×2 (06:36→17:43)
[2022-12-21 08:00] VITALS: BP 108/79; PULSE 72; RESP 17; TEMP 97.5; O2SAT 95
[2022-12-21] MEDS: MULTIPLE VITAMIN TAB PO SCH (09:57)
[2022-12-21] MEDS: LACTULOSE 20Gm/30ML SOLN PO SCH ×2 (09:57→22:39)
[2022-12-21] MEDS: cefTRIAXone 1GM/50ML D5W 50 ML IV SCH (09:57)
[2022-12-21] MEDS: THIAMINE HCL 100 MG TAB PO SCH (09:57)
[2022-12-21] MEDS: rifAXIMin 550 MG TAB PO SCH ×2 (09:57→22:39)
[2022-12-21] MEDS: PANTOPRAZOLE 40 MG TAB PO SCH ×2 (09:57→22:39)
[2022-12-21] MEDS: FOLIC ACID 1 MG TAB PO SCH (09:57)
[2022-12-21] MEDS: FERROUS SULFATE 325mg EC TAB PO SCH (09:57)
[2022-12-21] MEDS: predniSONE 20 MG TAB PO SCH (09:57)
[2022-12-21] MEDS: SPIRONOLACTONE 25 MG TAB PO SCH (09:57)
[2022-12-21 10:25] LABS: Basophils # (auto) 0 10 ^3/uL (0-0.2); Lymphocytes # (auto) 0.5 10 ^3/uL (0.4-5.4); Monocytes # (auto) 0.7 10 ^3/uL (0-1.3); Nucleated Red Blood Cells % 0.1 %; White Blood Cell 6.9 10^3/uL (4.4-10.8)
[2022-12-21 10:28] LABS: Basophils % (auto) 0.6 % (0.0-2.0); Eosinophils # (auto) 0.1 10 ^3/uL (0-0.8); Eosinophils % (auto) 2.1 % (0.0-7.0); Hematocrit 25.6 % (41.0-53.0); Hemoglobin 8.7 g/dL (13.5-17.5); Lymphocytes % (auto) 6.8 % (10.0-50.0); Mean Corpuscular Hemoglobin 36.1 pg (28.0-32.0); Mean Corpuscular Hgb Conc. 33.8 g/dL (32.0-36.0); Mean Corpuscular Volume 106.7 fL (80.0-100.0); Monocytes % (auto) 10.2 % (0.0-12.0); Neutrophils # (auto) 5.5 10 ^3/uL (1.6-8.6); Neutrophils % (auto) 80.3 % (37.0-80.0); Red Cell Distribution Width 17.4 % (11.8-14.3)
[2022-12-21 10:45] LABS: INR 2.24 (0.9-1.15); Partial Thromboplastin Time 49.5 SEC (24.5-34.5); Prothrombin Time 22.3 sec (9.3-11.8)
[2022-12-21 10:47] LABS: Anion Gap 8.4 (5-15); Carbon Dioxide 22.6 mmol/L (20-30); Chloride 100 mmol/L (98-107); Potassium 3.9 mmol/L (3.5-5.1)
[2022-12-21 10:48] LABS: Calcium 8.3 mg/dL (8.5-10.1)
[2022-12-21 10:53] LABS: Blood Urea Nitrogen 10 mg/dL (9-23); Glucose 175 mg/dL (74-106)
[2022-12-21 11:04] LABS: Platelet Estimate Decreased
[2022-12-21 11:10] LABS: Sodium 131 mmol/L (136-145)
[2022-12-21 12:21] LABS: BUN/Creatinine Ratio 18.5 (10.0-20.0)
[2022-12-21 13:00] VITALS: BP 111/80; PULSE 122; RESP 19; TEMP 97.5; O2SAT 94
[2022-12-21] MEDS ORDERED: PHYTONADIONE (VIT K)10 MG/ML 1ML VIAL SUBCUT ONE (13:45)
[2022-12-21] MEDS ORDERED: phytonadione 5 MG in SODIUM CHL 0.9% 50 ML IV ONE (14:15)
[2022-12-21 16:27] LABS: Urine Bacteria NONE SEEN /hpf (None Seen); Urine Blood 3+ /uL (Negative); Urine Clarity HAZY (Clear); Urine Color Brown (Yellow); Urine Hyaline Cast FEW /lpf (0 - 2); Urine Mucus FEW (None Seen); Urine Protein, UAD TRACE (Negative); Urine Specific Gravity 1.024 (1.001-1.035); Urine Urobilinogen Normal (Negative); Urine WBC 9 /hpf (0 - 3)
[2022-12-21 16:37] LABS: Amphetamine Screen, Urine Neg (NEGATIVE); Barbiturate Scree,Urine Neg (NEGATIVE); Benzodiazephine Screen, Urine Neg (NEGATIVE); Cannabinoid Screen, Urine Neg (NEGATIVE); Cocaine Screen, Urine Neg (NEGATIVE); Opiate Scree,Urine Neg (NEGATIVE); Phencyclidine Screen, Urine Neg (NEGATIVE)
[2022-12-21 17:00] VITALS: BP 100/71; PULSE 116; RESP 14; TEMP 98.7; O2SAT 98
[2022-12-21 20:00] VITALS: BP 100/72; PULSE 102; RESP 16; TEMP 98.4; O2SAT 100
[2022-12-21 22:00] VITALS: BP 100/72; PULSE 102; RESP 16; TEMP 98.4; O2SAT 100
[2022-12-22 05:00] VITALS: BP 99/69; PULSE 114; RESP 16; TEMP 97.6; O2SAT 100
[2022-12-22] MEDS: FUROSEMIDE 20 MG/2 ML VIAL IV SCH ×2 (05:11→17:55)
[2022-12-22] MEDS ORDERED: IOHEXOL 300 MG/ML 100ML BOTTLE IJ ONE (06:12)
[2022-12-22] MEDS ORDERED: OMNIPAQUE 12mg/ml 500ml ORAL SOLUTION PO ONE (06:12)
[2022-12-22 06:15] LABS: INR 2.15 (0.9-1.15); Prothrombin Time 21.5 sec (9.3-11.8)
[2022-12-22 06:20] LABS: Alanine Aminotransferase 34 U/L (7-40); Albumin 2.8 g/dL (3.2-4.8); Alkaline Phosphatase 95 U/L (46-116); Anion Gap 7.8 (5-15); Aspartate Aminotransferase 57 U/L (13-40); Blood Urea Nitrogen 12 mg/dL (9-23); Calcium 8.3 mg/dL (8.5-10.1); Carbon Dioxide 23.2 mmol/L (20-30); Chloride 99 mmol/L (98-107); Glucose 172 mg/dL (74-106); Potassium 4.4 mmol/L (3.5-5.1); Sodium 130 mmol/L (136-145); Total Protein 6.2 g/dL (5.7-8.2)
[2022-12-22 06:23] LABS: BUN/Creatinine Ratio 22.2 (10.0-20.0)
[2022-12-22 06:27] LABS: Eosinophils # (auto) 0 10 ^3/uL (0-0.8); Hematocrit 25.9 % (41.0-53.0); Monocytes # (auto) 0.9 10 ^3/uL (0-1.3); Nucleated Red Blood Cells % 0.2 %; Red Cell Distribution Width 17.3 % (11.8-14.3)
[2022-12-22 06:29] LABS: Basophils # (auto) 0 10 ^3/uL (0-0.2); Basophils % (auto) 0.5 % (0.0-2.0); Eosinophils % (auto) 0.4 % (0.0-7.0); Hemoglobin 8.7 g/dL (13.5-17.5); Lymphocytes # (auto) 0.5 10 ^3/uL (0.4-5.4); Lymphocytes % (auto) 5.6 % (10.0-50.0); Mean Corpuscular Hemoglobin 36.1 pg (28.0-32.0); Mean Corpuscular Hgb Conc. 33.5 g/dL (32.0-36.0); Monocytes % (auto) 10.3 % (0.0-12.0); Neutrophils # (auto) 7.2 10 ^3/uL (1.6-8.6); Neutrophils % (auto) 83.2 % (37.0-80.0); White Blood Cell 8.6 10^3/uL (4.4-10.8)
[2022-12-22 07:27] LABS: Anisocytosis Slight; Platelet Estimate Decreased
[2022-12-22 08:00] VITALS: BP 109/78; PULSE 68; RESP 19; TEMP 97.5; O2SAT 90
[2022-12-22 09:00] VITALS: BP 109/78; PULSE 68; RESP 19; TEMP 97.5; O2SAT 60; O2SAT 90
[2022-12-22] MEDS: rifAXIMin 550 MG TAB PO SCH (10:00)
[2022-12-22] MEDS: FOLIC ACID 1 MG TAB PO SCH (10:00)
[2022-12-22] MEDS: THIAMINE HCL 100 MG TAB PO SCH (10:00)
[2022-12-22] MEDS: MULTIPLE VITAMIN TAB PO SCH (10:00)
[2022-12-22] MEDS: predniSONE 20 MG TAB PO SCH (10:00)
[2022-12-22] MEDS: LACTULOSE 20Gm/30ML SOLN PO SCH (10:00)
[2022-12-22] MEDS: FERROUS SULFATE 325mg EC TAB PO SCH (10:00)
[2022-12-22] MEDS: PANTOPRAZOLE 40 MG TAB PO SCH (10:00)
[2022-12-22] MEDS: SPIRONOLACTONE 25 MG TAB PO SCH (10:00)
[2022-12-22] MEDS: cefTRIAXone 1GM/50ML D5W 50 ML IV SCH (10:04)
[2022-12-22 13:00] VITALS: BP 97/65; PULSE 108; RESP 16; TEMP 97.8; O2SAT 95
[2022-12-22 16:34] VITALS: BP 104/67; PULSE 114; RESP 18; TEMP 98.6; O2SAT 98
== END 2022-12-22 19:00 | disposition home or self-care (01) | DRG 280 ==
LOC: EDBD 09:50 → ER 09:50 → OVERFLOW 14:56 → WEST WING 21:32
PROVIDERS: ADMIT Internal Medicine
DX: K70.31 Alcoholic cirrhosis of liver with ascites (principal); E43 Unspecified severe protein-calorie malnutrition; D68.9 Coagulation defect, unspecified; D69.6 Thrombocytopenia, unspecified; K72.10 Chronic hepatic failure without coma; E72.20 Disorder of urea cycle metabolism, unspecified; F41.9 Anxiety disorder, unspecified; F10.10 Alcohol abuse, uncomplicated; K76.82 Hepatic encephalopathy; Z82.49 Family history of ischemic heart disease and other diseases of the circulatory system; Z87.11 Personal history of peptic ulcer disease; Z68.37 Body mass index [BMI] 37.0-37.9, adult
CPT/HCPCS: 36415; 76705; 80048; 80053; 80061; 80307; 80320; 81001; 82105; 82140; 83036; 83605; 83690; 83735; 84443; 85025; 85610; 85730; 86850; 86900; 86901; G0378; J0696; J3430